=== PATIENT | male | born 1955 | race Caucasian/White ===

== ENCOUNTER → 2018-03-04 06:48 | Outpatient (CLI) | payer MEDICARE, MEDICAID, SELFPAY ==
--- NOTE | 2018-03-04 06:52 | ECHOCS_ITS ---
Reason For Study: CHF Procedure This was a 2D Doppler, Color Flow transthoracic echocardiogram. Exam performed in department. Left Ventricle Normal LV size. The estimated ejection fraction is 35 %. Moderately severe segmental systolic dysfunction (see wall motion). Transmitral diastolic flow velocities suggest mild (stage 1) diastolic dysfunction (reversed pattern). There are regional wall motion abnormalities as specified. Right Ventricle Normal RV size. Normal systolic function. Atria Normal left atrium. Normal right atrium. Mitral Valve Normal mitral valve. Tricuspid Valve Normal tricuspid valve. Mild to moderate (1-2+) tricuspid valve insufficiency. Pulmonary artery systolic pressure is 32 mmHg. Aortic Valve Trisinus/trileaflet aortic valve. Pulmonic Valve The pulmonic valve is not well visualized. Great Vessels Normal aortic root. The pulmonary artery is normal size. Normal inferior vena cava. Pericardium/Pleural No pericardial effusion. Medication Definity0.4ml given slow IV push to enhance endocardial definition. MMode/2D Measurements & Calculations LVIDd: 5.1 cm IVSd: 0.88 cm Ao root diam: 3.2 cm LVIDs: 4.3 cm LVPWd: 0.86 cm LA dimension: 4.7 cm RVDd: 2.6 cm FS: 16.2 % LAV(MOD-bp): 26.8 ml LA A4 area: 13.4 cm2 RA A4 area: 9.1 cm2 LAV(MOD-bp) Indexed: 13.2 ml/m2 LAV(MOD-sp2): 24.4 ml LAV(MOD-sp4): 28.7 ml Doppler Measurements & Calculations MV E max johnny: 59.7 cm/sec Lat Peak E' Johnny: 8.3 cm/sec Med Peak E' Johnny: 6.1 cm/sec MV A max johnny: 88.0 cm/sec E/E' lat: 7.2 E/E' med: 9.8 MV E/A: 0.68 Ao V2 max: 184.5 cm/sec LV V1 max: 79.2 cm/sec PA V2 max: 116.3 cm/sec Ao max P.6 mmHg LV V1 max P.5 mmHg Ao V2 mean: 137.5 cm/sec Ao mean P.4 mmHg Ao V2 VTI: 32.4 cm TR max johnny: 272.5 cm/sec TR max P.8 mmHg Interpretation Summary Normal LV size. The estimated ejection fraction is 35 %. Moderately severe segmental systolic dysfunction (see wall motion). Transmitral diastolic flow velocities suggest mild (stage 1) diastolic dysfunction (reversed pattern). Mild to moderate (1-2+) tricuspid valve insufficiency. Pulmonary artery systolic pressure is 32 mmHg. Contrast injection was performed. Compared to prior study, changes are noted. Ordering Physician: Patricia Cerda Referring Physician: Patricia Cerda Performed By: Katina Rogers RDCS, RVT
--- NOTE | 2018-03-04 12:27 | STRESSREP ---
Stress Test Report Pharmacologic myocardial perfusion stress test. 62-year-old man with a history of coronary artery disease status post previous coronary bypass surgery in 2013. Medications metoprolol lisinopril Zantac aspirin. Stress protocol: Resting EKG demonstrates normal sinus rhythm with a rate of 99 bpm normal intervals are noted. Resting blood pressure is 122/80 mmHg. 0.4 mg of regadenoson was infused per usual protocol followed by rapid intravenous saline flush injection. Continuous EKG monitoring was performed. The patient maintained sinus rhythm throughout the recording. The maximum heart rate attained was 114 bpm which was 71% maximum predicted heart rate the maximum workload attained was 1 metabolic equivalent. At rest there were no ST or T-wave changes noted suggest abnormal flow reserve at peak infusion no ST or T-wave changes were noted suggest abnormal flow reserve. Myocardial perfusion protocol. 10.9 mCi of technetium 99m sestamibi was injected at rest. 0.4 mg of regadenoson was infused per usual protocol. At peak infusion 34.1 mCi of technetium 99m sestamibi was injected stress images were obtained stress and rest images were reconstructed and compared in the short axis vertical long and horizontal long axis. Gated images were also obtained. Perfusion SPECT analysis: Review of the stress images demonstrate a normal cardiac silhouette size. There is a medium-sized defect noted involving the base to mid ventricle. The septum anterior wall and apex appear to be well perfused. There is no improvement from stress to rest to suggest ischemia. The basal to mid inferior wall appears to be infarcted. There is significant GI attenuation artifact though which may be confounding some of the interpretation. Gated SPECT analysis The gated ejection fraction is 24%. Conclusion: Ischemic cardiomyopathy. Pharmacologic myocardial perfusion stress test with evidence of basal to mid inferior infarction. No ischemia noted
--- NOTE | 2018-03-04 12:33 | STRESSREP_ITS ---
Stress Test Report Pharmacologic myocardial perfusion stress test. 62-year-old man with a history of coronary artery disease status post previous coronary bypass surgery in 2013. Medications metoprolol lisinopril Zantac aspirin. Stress protocol: Resting EKG demonstrates normal sinus rhythm with a rate of 99 bpm normal intervals are noted. Resting blood pressure is 122/80 mmHg. 0.4 mg of regadenoson was infused per usual protocol followed by rapid intravenous saline flush injection. Continuous EKG monitoring was performed. The patient maintained sinus rhythm throughout the recording. The maximum heart rate attained was 114 bpm which was 71% maximum predicted heart rate the maximum workload attained was 1 metabolic equivalent. At rest there were no ST or T- wave changes noted suggest abnormal flow reserve at peak infusion no ST or T- wave changes were noted suggest abnormal flow reserve. Myocardial perfusion protocol. 10.9 mCi of technetium 99m sestamibi was injected at rest. 0.4 mg of regadenoson was infused per usual protocol. At peak infusion 34.1 mCi of technetium 99m sestamibi was injected stress images were obtained stress and rest images were reconstructed and compared in the short axis vertical long and horizontal long axis. Gated images were also obtained. Perfusion SPECT analysis: Review of the stress images demonstrate a normal cardiac silhouette size. There is a medium-sized defect noted involving the base to mid ventricle. The septum anterior wall and apex appear to be well perfused. There is no improvement from stress to rest to suggest ischemia. The basal to mid inferior wall appears to be infarcted. There is significant GI attenuation artifact though which may be confounding some of the interpretation. Gated SPECT analysis The gated ejection fraction is 24%. Conclusion: Ischemic cardiomyopathy. Pharmacologic myocardial perfusion stress test with evidence of basal to mid inferior infarction. No ischemia noted
== END ==
PROVIDERS: Family Provider Nurse Practitioner Family; PCP Nurse Practitioner Family; Visit Provider Physician Assistant Medical
DX: I25.5 Ischemic cardiomyopathy (principal); I25.10 Atherosclerotic heart disease of native coronary artery without angina pectoris; R07.9 Chest pain, unspecified; I25.2 Old myocardial infarction
CPT/HCPCS: 78452; 93017; 93306; A9500; Q9957; A4216; C8929; J2785

== ENCOUNTER 2018-04-16 10:18 | Day surgery (SDC) | payer MEDICARE, MEDICAID, SELFPAY ==
[2018-04-09 07:16] LABS: Bacteria 0 SEEN /hpf (None Seen); Mucous, Urine 0 SEEN /hpf (<or=2+); Squamous Epithelial Cells - UA 0 SEEN /hpf (0-5); White Blood Cells 0 SEEN /hpf (0-5)
--- NOTE | 2018-04-09 07:31 | RAD_ITS ---
STUDY: X-RAY CHEST REASON FOR EXAM: Male, 62 years old. Pre-ICD placement examination. TECHNIQUE: PA and lateral views of the chest. COMPARISON: Comparison is made with prior study dated November 13, 2017. FINDINGS: Calcified granuloma in the left lower lobe. Stable mild increased linear markings at the left lung base suggestive of a mild left basilar scarring. There is no demonstrated pleural abnormality. Sternal cerclage wires and vascular clips are present from a prior sternotomy and coronary artery bypass graft procedure (CABG). Normal mediastinum and minna. Normal visualized pulmonary arteries. Normal visualized aortic arch and descending thoracic aorta. Normal visualized thoracic spine. Normal visualized ribs, clavicles, and shoulders. There is no demonstrated abnormality of the visualized soft tissue structures of the upper abdomen. RAD/Chest PA and Lateral IMPRESSION: Stable examination. Mild left basilar scarring. Electronically Signed: Luis Alvarez MD at 15:47 EDT Tel [phone], Service support ,
[2018-04-09 07:52] LABS: Anion Gap 7 (5-15); BUN 25 mg/dL (7-18); BUN/Creat Ratio 16.2 RATIO (10-20); Calcium,Total 9.6 mg/dL (8.5-10.1); Chloride 100 mmol/L (98-107); Creatinine, Serum 1.54 mg/dL (0.70-1.30); EST Glomerular Filtration Rate 49 mL/min (>60); Est Glom Filt Rate - Afr Amer 59 mL/min (>60); Glucose 191 mg/dL (74-106); Potassium 3.9 mmol/L (3.5-5.1); Sodium Level 134 mmol/L (136-145)
[2018-04-09 07:54] LABS: Color, Urine Yellow (Yellow); Glucose, Dipstick 1000 mg/dl (Normal); Ketone-Dipstick Negative (Negative); Leukocyte Esterase-Dipstick Negative /ul (Negative); Nitrite-Dipstick Negative (Negative); Occult Blood-Urine 10 /ul (Negative); Protein-Dipstick 100 mg/dl (Negative); Urine Bilirubin Dipstick Negative (Negative); Urine Clarity Clear (Clear); Urine Urobilinogen Normal (Normal)
[2018-04-09 08:02] LABS: Hematocrit 52.7 % (40-54); Mean Corp Hgb Conc 34.5 g/gl (32-36); Mean Corpuscular Hgb 31.2 pg (27.0-32.0); Mean Corpuscular Volume 90.2 fL (80-94); Mean Platelet Vol. 10.3 fl (6.2-12.0); Platelet Count 230 K/mm3 (150-450); RBC Distribution Width CV 13.4 % (11.6-14.6); RBC Distribution Width SD 43.5 fl (35.1-43.9); Red Blood Count 5.84 M/mm3 (4.6-6.2); White Blood Count 7.2 K/mm3 (4.4-11.0)
[2018-04-09 08:03] LABS: Hyaline Cast 0-5 SEEN /lpf (0-5); Red Blood Cells-Urine 0-5 SEEN /hpf (0-5)
[2018-04-09 08:04] LABS: Hemoglobin 18.2 g/dl (13.0-16.5); Scan Indicated on CBC? Y/N NO
[2018-04-09 08:06] LABS: International Normalized Ratio 0.9; Prothrombin Time (Protime)PT. 12.2 SECONDS (11.7-14.9)
[2018-04-15 10:50] VITALS: BMI 29.9
[2018-04-16] VITALS (14 sets, daily range): BP systolic 99–123; BP diastolic 66–80; PULSE 81–112; RESP 16–18; TEMP 36.6–36.9; O2SAT 93–94
--- NOTE | 2018-04-16 12:37 | PCM.OP.BLANK ---
Operative Report Date of Procedure: 04/16/18 Preoperative diagnosis implantation of primary prevention single chamber ICD for ischemic CM EF 35% despite optimal medical therapy and NYHA Class III symptoms Postoperative diagnosis same as above After informed consent and IV antibiotics the patient was brought to the [facility] catheterization laboratory. The left side of the chest was prepped and draped in the usual sterile manner. The patient was sedated with intermittent boluses of IV Versed fentanyl and propofol as well as subcutaneous 1% lidocaine. An incision was made inferior to the clavicle to accommodate the size of the hardware device. The pocket was created using blunt and Bovie dissection. Hemostasis was obtained. Using the Seldinger technique the axillary vein was cannulated once and a guidewire was advanced under fluoroscopic guidance. Over the guidewire a sheath was advanced. Through this sheath, the electrode was positioned under fluoroscopic guidance into the right ventricle and was actively fixated. Once actively fixated, the lead was tested to check for proper sensing, capture threshold, impedance and to exclude diaphragmatic stimulation. Once the lead was implanted and all electrical parameters were confirmed to be functioning normally with appropriate values, the leads was then sutured to the pectoralis muscle with 2-0 silk on the Silastic collar ?2. The sponge and needle count were correct. Hemostasis was obtained. Antibiotic solution was used to flush the pocket. The new device was brought to the field. The lead was placed in the appropriate position of the header of the device and were secured by the setscrews and confirmed by the tug test. The device and the leads were then placed in the pocket. Pocket was closed with a deep layer of running 2-0 Vicryl, superficial layer of running 4-0 Vicryl and skin with Steri-Strips that were covered with a rolled 4 x 4's and Tegaderm. The patient left the lab with the device programmed to chronic parameters. There were no complications. Lead and device serial and model numbers are available in the chart documents provided by the device company regional sales representative procedure summary.
--- NOTE | 2018-04-16 14:00 | RAD_ITS ---
STUDY: X-RAY CHEST REASON FOR EXAM: Male, 62 years old. ICD placement. TECHNIQUE: Single AP portable view of the chest. COMPARISON: Comparison is made with prior study dated April 09, 2018. FINDINGS: EKG electrodes are seen. Mild increased markings at the left lung base suggestive of linear scarring and/or linear atelectasis. There is no demonstrated pleural abnormality. Sternal cerclage wires are present from a prior sternotomy. A left-sided ICD is seen. Normal mediastinum and minna. Normal visualized pulmonary arteries. Normal visualized aortic arch and descending thoracic aorta. Normal visualized thoracic spine. Normal visualized ribs, clavicles, and shoulders. There is no demonstrated abnormality of the visualized soft tissue structures of the upper abdomen. RAD/Chest 1 View (Portable) IMPRESSION: Status post left-sided ICD placement. The remainder of the examination is unchanged. Electronically Signed: Luis Alvarez MD at 15:55 EDT Tel [phone], Service support ,
[2018-04-16 16:25] LABS: Bedside Glucose 348 mg/dL (70-110)
[2018-04-16] MEDS: Famotidine 20 MG Tablet PO (22:34)
[2018-04-16] MEDS: Metoprolol Tartrate 25 MG Tablet PO (22:35)
[2018-04-16] MEDS: Nortriptyline 25 MG Capsule PO (22:35)
[2018-04-16] MEDS: Zolpidem Tartrate 5 MG Tablet PO (22:38)
[2018-04-16 22:51] LABS: Bedside Glucose 113 mg/dL (70-110)
[2018-04-17 03:00] VITALS: PULSE 80
[2018-04-17 04:30] VITALS: BP 131/87; PULSE 87; RESP 18; TEMP 36.4; O2SAT 95
[2018-04-17 04:40] LABS: Bedside Glucose 172 mg/dL (70-110)
--- NOTE | 2018-04-17 05:00 | RAD_ITS ---
STUDY: X-RAY CHEST REASON FOR EXAM: Male, 62 years old. Pacemaker TECHNIQUE: PA and lateral views of the chest. COMPARISON: 04/16/2018. 04/09/2018. 05/07/2013. FINDINGS: There is no demonstrated pneumothorax. Left subclavian approach pacemaker with lead tip over the right ventricle. The lungs are clear and expanded. There are calcified granuloma left base. Minor scarring in the left base. There is no demonstrated pleural abnormality. Sternal cerclage wires and vascular clips are present from a prior sternotomy and coronary artery bypass graft procedure (CABG). Normal mediastinum and minna. Normal visualized pulmonary arteries. Normal visualized aortic arch and descending thoracic aorta. Normal visualized thoracic spine. Normal visualized ribs, clavicles, and shoulders. There is no demonstrated abnormality of the visualized soft tissue structures of the upper abdomen. RAD/Chest PA and Lateral IMPRESSION: Pacemaker appears in good position. Remote adenomatous exposure and scarring in the left base. There is no demonstrated pneumothorax. Electronically Signed: Ana Correa MD at 7:41 EDT , Service support ,
[2018-04-17 05:38] LABS: Hematocrit 49.9 % (40-54); Hemoglobin 17.4 g/dl (13.0-16.5)
[2018-04-17 05:55] LABS: Anion Gap 8 (5-15); BUN 22 mg/dL (7-18); BUN/Creat Ratio 14.5 RATIO (10-20); Calcium,Total 9.2 mg/dL (8.5-10.1); Chloride 104 mmol/L (98-107); Creatinine, Serum 1.52 mg/dL (0.70-1.30); EST Glomerular Filtration Rate 50 mL/min (>60); Est Glom Filt Rate - Afr Amer 60 mL/min (>60); Estimated Creatinine Clearance 49.38 ml/min; Glucose 163 mg/dL (74-106); Potassium 4.8 mmol/L (3.5-5.1); Sodium Level 139 mmol/L (136-145)
[2018-04-17 06:50] LABS: Bedside Glucose 182 mg/dL (70-110)
[2018-04-17 07:07] VITALS: PULSE 99
[2018-04-17 08:14] VITALS: PULSE 99
[2018-04-17] MEDS: Famotidine 20 MG Tablet PO (08:14)
[2018-04-17] MEDS: Metoprolol Tartrate 25 MG Tablet PO (08:14)
[2018-04-17] MEDS: Aspirin E.C. 81 MG Tablet PO (08:14)
[2018-04-17] MEDS: Clopidogrel Bisulfate 75 MG Tablet PO (08:14)
[2018-04-17] MEDS: Lisinopril 2.5 MG Tablet PO (08:14)
[2018-04-17 10:30] VITALS: BP 114/55; PULSE 95; RESP 16; TEMP 36.9; O2SAT 93
[2018-04-17 11:15] VITALS: PULSE 90
[2018-04-17 12:06] LABS: Bedside Glucose 225 mg/dL (70-110)
--- NOTE | 2018-04-17 14:27 | PCM.PN.CARD ---
Subjectve: The patient is now status post ICD placement. He appears to be without acute procedure related concern or complaint. Objective: Vital Signs Temp Pulse Resp BP Pulse Ox 98.4 F 90 16 114/55 L 93 04/17/18 10:30 04/17/18 11:15 04/17/18 10:30 04/17/18 10:30 04/17/18 10:30 Oxygen Delivery Method Room Air Weight: 197 lb Body Mass Index (BMI) 29.9 Intake and Output for Last 24 Hours 04/15/18 04/16/18 04/17/18 23:59 23:59 23:59 Intake Total 1200 / 1200 Output Total 1175 / 1175 Balance General: Awake, Alert, Oriented x 3, Cooperative, No Acute Distress Neck: No JVD Chest Wall: Left Pectoral Incision - Surgical dressing: Clean and dry Cardiovascular: Regular Rhythm, Normal S1, Normal S2 Abdomen: Bowel Sounds Present, Soft, Non Tender Extremities: No edema 04/17/18 05:20: Hgb 17.4 H, Hct 49.9 04/17/18 05:20: Sodium 139, Potassium 4.8, Chloride 104, Carbon Dioxide 27.0, Anion Gap 8, BUN 22 H, Creatinine 1.52 H, Est GFR (MDRD) Af Amer 60, Est GFR (MDRD) Non-Af 50 L, BUN/Creatinine Ratio 14.5, Glucose 163 H, Calcium 9.2 Rhythm: Sinus rhythm CXR: Preliminary evaluation: No acute cardiopulmonary disease process appreciated: please see official report Medical Necessity - Tobacco Use Smoking Status: Former smoker Assessment/Plan 1. CAD status post CABG with ischemic mediated cardiomyopathy with diminished LV systolic function At the present time patient appears to be without acute complaint. He is now status post ICD placement. There is been no obvious post procedure related concern or complication. The patient will need continued medical management and outpatient follow-up. 25. CHF: Chronic systolic The patient has undergone previous noninvasive and invasive evaluation in the past. He will continue medical management and follow-up. 3. Hyperlipidemia The patient will continue lipid-lowering therapy and appropriate. 4. Hypertension The patient will continue medical management and adjustment as deemed appropriate. Overall, the patient will be released home for continued outpatient cardiovascular follow-up. This note was generated with [employer] software. It may contain incorrect words, spelling, and punctuation that were not noted in checking the note before signing.
== END 2018-04-17 15:15 | disposition home or self-care (01) ==
LOC: CLSP 10:18 → PCU 13:07
PROVIDERS: Physician Assistant Medical; Family Provider Nurse Practitioner Family; PCP Nurse Practitioner Family; Visit Provider Internal Medicine Cardiovascular Disease
DX: I25.5 Ischemic cardiomyopathy (principal); Z45.02 Encounter for adjustment and management of automatic implantable cardiac defibrillator; Z00.6 Encounter for examination for normal comparison and control in clinical research program; I11.0 Hypertensive heart disease with heart failure; I50.22 Chronic systolic (congestive) heart failure; I25.810 Atherosclerosis of coronary artery bypass graft(s) without angina pectoris; E11.9 Type 2 diabetes mellitus without complications; E78.5 Hyperlipidemia, unspecified; Z79.02 Long term (current) use of antithrombotics/antiplatelets; Z79.82 Long term (current) use of aspirin; Z79.4 Long term (current) use of insulin; Z79.899 Other long term (current) drug therapy; I25.2 Old myocardial infarction; Z86.73 Personal history of transient ischemic attack (TIA), and cerebral infarction without residual deficits; Z87.891 Personal history of nicotine dependence; Z95.1 Presence of aortocoronary bypass graft
CPT/HCPCS: 33249; 36415; 71045; 71046; 80048; 81001; 82962; 85014; 85018; 85027; 85610; 93641; 99152; 99153; J7040; J7050; C1894

== ENCOUNTER 2018-09-09 10:31 | Emergency (ER) | payer MEDICARE, MEDICAID, SELFPAY ==
[2018-09-09 10:32] VITALS: BP 131/83; PULSE 99; RESP 18; TEMP 36.6; O2SAT 96; BMI 29.7
[2018-09-09 10:55] VITALS: BP 146/101; PULSE 94; RESP 16; O2SAT 97
--- NOTE | 2018-09-09 11:09 | ED.VISSUMM ---
- ER Visit Summary Date of Service: 09/09/18 Chief Complaint: [] Stabbing pain right great toe region of foot History of Present Illness: The patient is a 63 M [] reports he has chronic numbness in his right foot for years related to diabetes and prior CABG vein harvesting procedures. He has no history of vascular insufficiency to his lower extremities. Indicates for the last 24 hours or so he has had intermittent sharp stabbing pain to the webspace great toe second toe right. There is been no trauma no fever no swelling no bruising, he has had this before but it has not been as frequent. He has no symptoms the left foot, he has history of cardiovasular disease CABG defibrillator is on Plavix all of his medical problems have been stable. At this time he is resting in the bed he has no complaints he is not having pain, he points to the webspace right great toe as the area of pain when it occurs Physical Examination: [] He is resting comforting the bed he is in no distress his vital signs are normal head neck chest unremarkable the abdomen soft nontender he is moving all 4 extremities the right foot left foot, there both have good cap refill to all toes, dorsalis pedis pulses are diminished bilaterally, I did place the pulse ox probe on his toes right and the pulse ox probe read a normal wave pattern with a pulse ox of 98% showing good flow to the tip of the toe, the skin of the foot and the toe are unremarkable there is no signs of infection bruising trauma or necrosis no signs of vascular insufficiency the left foot has a very similar exam neurologically is awake alert moving all 4 Test Results: [] Emergency Department Course and Treatment: [] There are paroxysms of sharp stabbing pain he is not having the pain now I recommended we could do an x-ray he declined that, given that he is asymptomatic he will be started on [place] No. 4 tablets to use as needed I have also recommended he see podiatry for further management as an outpatient and he agrees with that plan, he is concerned that his diabetic neuropathy is getting worse and have explained that is certainly a possibility there is other things on the differential he needs to follow-up and he will do so Treatment Plan: [] Disposition: [] Home stable Impression: [] Remittent sharp stabbing pain right foot history of diabetes diabetic neuropathy CABG defibrillator This note was generated with Dragon dictation software. It may contain incorrect words, spelling, and punctuation that were not noted in review of the chart prior to signing ED Disposition - Plan for ED Patient: Chief Complaint: Lower Extremity Injury Referrals: [place], VICTOR MANUEL-C [Primary Care Provider] -
--- NOTE | 2018-09-09 11:13 | ED.DEP ---
ED Disposition - Plan for ED Patient: Chief Complaint: Lower Extremity Injury Instructions: Treating Peripheral Neuropathy Prescriptions: Hydrocodone Bitart/Apap 5-325 [[place] 5MG-325MG] 1 tab PO Q4H PRN PRN 2 Days #4 tab PRN Reason: Pain Referrals: [place] [facility], HR CONSULTANT-C [Primary Care Provider] - Jhonny Jimenez DPM [STAFF PHYSICIAN] -
--- NOTE | 2018-09-09 11:15 | DCINST.ED_ITS ---
ED Disposition - Plan for ED Patient: Chief Complaint: Lower Extremity Injury Instructions: Treating Peripheral Neuropathy Prescriptions: Hydrocodone Bitart/Apap 5-325 [[place] 5MG-325MG] 1 tab PO Q4H PRN PRN 2 Days #4 tab PRN Reason: Pain Referrals: [place], BENZOL STILL OPERATOR-C [Primary Care Provider] - Jhonny Jimenez DPM [STAFF PHYSICIAN] -
[2018-09-09 11:44] VITALS: PULSE 84; RESP 17; O2SAT 96
== END 2018-09-09 11:45 | disposition home or self-care (01) ==
PROVIDERS: Emergency Provider Emergency Medicine; Family Provider Nurse Practitioner Family; PCP Nurse Practitioner Family
DX: M79.671 Pain in right foot (principal); E11.40 Type 2 diabetes mellitus with diabetic neuropathy, unspecified; Z79.02 Long term (current) use of antithrombotics/antiplatelets; Z79.82 Long term (current) use of aspirin; Z79.4 Long term (current) use of insulin; Z79.899 Other long term (current) drug therapy; Z95.1 Presence of aortocoronary bypass graft; Z95.810 Presence of automatic (implantable) cardiac defibrillator
CPT/HCPCS: 99282

== ENCOUNTER 2019-06-04 13:10 | Inpatient (IN) | payer MEDICARE, MEDICAID, SELFPAY ==
[2019-04-16 08:21] VITALS: BMI 29.9
[2019-06-04] VITALS (13 sets, daily range): BP systolic 131–167; BP diastolic 82–98; PULSE 94–110; RESP 16–24; TEMP 36.1–36.6; O2SAT 89–96; BMI 30.2; BMI 29.6
--- NOTE | 2019-06-04 13:24 | EKG12_ITS ---
Test Reason : Blood Pressure : / mmHG Vent. Rate : 103 BPM Atrial Rate : 103 BPM P-R Int : 156 ms QRS Dur : 106 ms QT Int : 380 ms P-R-T Axes : 053 -07 088 degrees QTc Int : 497 ms Sinus tachycardia Cannot rule out Inferior infarct (cited on or before 12-APR-2013) T wave abnormality, consider lateral ischemia Abnormal ECG Confirmed by DELFINO JULIEN, HEIDI ([id number]), video tape editor ANAY TALBOT ([id number]) on 06/08/2019 2:16:25 PM Referred By: FATEMEH Confirmed By:HEIDI SALEH MD
--- NOTE | 2019-06-04 13:25 | RAD_ITS ---
STUDY: X-RAY CHEST REASON FOR EXAM: Male, 63 years old. Increasing shortness of breath. TECHNIQUE: AP and lateral views of the chest. COMPARISON: Comparison is made with prior study dated April 17, 2018. FINDINGS: EKG electrodes are seen. There now is evidence of vascular congestion and CHF. There is no demonstrated pleural abnormality. Sternal cerclage wires and vascular clips are present from a prior sternotomy and coronary artery bypass graft procedure (CABG). Borderline cardiomegaly. A left-sided single chamber pacemaker is seen. Normal mediastinum and minna. Normal visualized pulmonary arteries. Normal visualized aortic arch and descending thoracic aorta. Normal visualized thoracic spine. Normal visualized ribs, clavicles, and shoulders. There is no demonstrated abnormality of the visualized soft tissue structures of the upper abdomen. RAD/Chest PA and Lateral IMPRESSION: Vascular congestion and CHF. Electronically Signed: Luis Alvarez, at 14:26 EDT , Service support ,
[2019-06-04 14:00] LABS: Absolute Lymphocyte Count 1.79 X10^3/ul (0.83-4.51); Absolute Neutrophil Count 7.4 X10^3/uL (2.0-7.7); Basophil# 0.04 X10^3/uL; Basophil% 0.4 % (0-1); Eosinophil# 0.38 X10^3/uL; Eosinophils% 3.6 % (0-5); Hematocrit 46.1 % (40-54); Hemoglobin 15.9 g/dl (13.0-16.5); Lymphocyte # 1.79 X10^3/ul (4.0); Lymphocyte % 16.7 % (19-41); Mean Corp Hgb Conc 34.5 g/gl (32-36); Mean Corpuscular Hgb 30.3 pg (27.0-32.0); Monocyte# 1.06 X10^3/uL; Monocyte% 9.9 % (0-10); Neutrophil % 69.1 % (47-70); Platelet Count 211 K/mm3 (150-450); RBC Distribution Width CV 13.9 % (11.6-14.6); RBC Distribution Width SD 44.6 fl (35.1-43.9); Red Blood Count 5.24 M/mm3 (4.6-6.2); White Blood Count 10.7 K/mm3 (4.4-11.0)
[2019-06-04 14:02] LABS: POSITIVE COUNT NO; POSITIVE DIFFERENTIAL NO; POSITIVE MORPHOLOGY NO
[2019-06-04 14:10] LABS: International Normalized Ratio 0.9; Prothrombin Time (Protime)PT. 12.4 SECONDS (11.7-14.9)
[2019-06-04 14:11] LABS: AST(SGOT) 31 U/L (15-37); Alanine Aminotransfer ALT/SGPT 39 U/L (16-61); Alkaline Phosphatase 96 U/L (45-117); Anion Gap 7 (5-15); BUN 17 mg/dL (7-18); BUN/Creat Ratio 13.1 RATIO (10-20); Calcium,Total 9.4 mg/dL (8.5-10.1); Chloride 103 mmol/L (98-107); EST Glomerular Filtration Rate 59 mL/min (>60); Est Glom Filt Rate - Afr Amer 72 mL/min (>60); Globulin 3.9 g/dL (2.2-4.2); Glucose 280 mg/dL (74-106); Partial Thromboplast Time 26.7 Seconds (24.1-36.2); Potassium 3.9 mmol/L (3.5-5.1); Protein, Total 7.9 g/dL (6.4-8.2); Sodium Level 136 mmol/L (136-145)
[2019-06-04 14:28] LABS: BNP,B-Type NATRIURETIC PEPTIDE 645.9 pg/mL (0-100)
--- NOTE | 2019-06-04 14:46 | ED.VISSUMM ---
- ER Visit Summary Date of Service: 06/04/19 Chief Complaint: Dyspnea History of Present Illness: The patient is a 63 M who presents emergency department with 5 to 6 days of progressive dyspnea dyspnea on exertion and orthopnea. He has a history of congestive heart failure diabetes and hypertension. He states he is not on Lasix and has not been on Lasix for about 5 years. Last echocardiogram was February 2018 which showed an ejection fraction of 35% with segmental systolic dysfunction pulmonary artery pressure 32. Physical Examination: Afebrile noted tachycardia of 101 resting pulse ox of 98% on room air Gen: Well-nourished well-developed Head: Normocephalic atraumatic Eyes: Perrl EOMI ENT: TMs clear no rhinorrhea moist mucous membranes Neck: Supple no lymphadenopathy no JVD nontender CVS: Regular rate tachycardic rhythm no murmurs normal S1-S2 Respiratory: No distress rales bilaterally chest nontender Abdomen: Soft nontender nondistended normal bowel sounds no masses Back: Nontender Extremity: Nontender no edema Skin: Normal color no rash Neuro: alert orientated ?3 CN II-XII intact normal strength sensation reflexes gait cerebellar Psych: Normal affect normal mood Test Results: EKG demonstrated sinus tachycardia at a rate of 103 this was at rest. Chest x-ray shows vascular congestion consistent with CHF. Beta nitrated peptide was elevated at 645 troponin 0 0.027 280. Creatinine normal. No anemia. Emergency Department Course and Treatment: The patient received Lasix 60 mg IV. He was ambulated in the department. Patient became significantly labored breathing and hypoxic at 87% and symptomatic. Patient was placed on supplemental oxygen and her plan is admission. Impression: 1. Congestive heart failure This note was generated with [employer] dictation software. It may contain incorrect words, spelling, and punctuation that were not noted in review of the chart prior to signing ED Disposition - Plan for ED Patient: Referrals: [place] NP-C [Primary Care Provider] -
[2019-06-04] MEDS: Furosemide 100 MG/10 ML Vial 60 MG IV (14:48)
--- NOTE | 2019-06-04 15:46 | PCM.HP.STD ---
<Bert Holt - Last Filed: 06/04/19 15:50> Problem List (1) CHF (congestive heart failure) Status: Acute Qualifiers: Heart failure type: systolic (2) Presence of implantable cardioverter-defibrillator (ICD) Status: Chronic (3) Ischemic cardiomyopathy Status: Chronic (4) Aortocoronary bypass status Status: Chronic Comment: CABG X 4 vessels @ [facility] February 2013; (5) Large B-cell lymphoma Status: Chronic (6) History of TIA (transient ischemic attack) Status: Chronic (7) CAD (coronary artery disease) Status: Chronic (8) Hypertension Status: Chronic (9) Hyperlipidemia Status: Chronic (10) Type 2 diabetes mellitus Status: Chronic History of Present Illness Date of Admission: 06/04/19 Chief Complaint: Shortness of breath The patient is a 63 year old M with past medical history of CAD with prior quadruple bypass in 2012, history of ischemic cardiomyopathy, hx TIA, history of chronic systolic congestive heart failure with an EF of 35%, AICD in place, history of B-cell lymphoma in remission, history of type 2 diabetes, hypertension, hyperlipidemia, who presented to the emergency room with complaints of increasing shortness of breath. This is been progressively worsening over the past 6 days. Patient cannot identify a triggering cause. He said he spontaneously started becoming more more short of breath. He does not take Lasix at home despite his history of ischemic cardiomyopathy and CHF. He has been without Lasix for about 5 years, the last time he required Lasix was after he had his quad bypass. He reports worsening symptoms of orthopnea and paroxysmal nocturnal dyspnea. He wakes up gasping for breath and has to sit up in order to catch his breath. He has no chest pain. He did have some lightheadedness when ambulating around the emergency room today. He was given Lasix in the ER and has already started to have good urinary output. Reports no difficulty emptying his bladder. Minimal LE edema. He is a patient of Dr. 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 No issues at that time. 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 (Chronic) Atherosclerosis of coronary artery bypass graft without angina pectoris (Chronic) Large B-cell lymphoma (Chronic) History of TIA (transient ischemic attack) (Chronic) History of [place] (myocardial infarction) (Chronic) September 2012 Chronic respiratory failure (Chronic) CAD (coronary artery disease) (Chronic) Hypertension (Chronic) Hyperlipidemia (Chronic) Type 2 diabetes mellitus (Chronic) Medical History: Medical History (Last Reviewed 10/01/18 @ 08:50 by Seth Harris MD) CHF (congestive heart failure) (Acute) I50.9 Old myocardial infarction (Chronic) I25.2 Ischemic cardiomyopathy (Chronic) I25.5 Atherosclerosis of coronary artery bypass graft without angina pectoris (Chronic) I25.810 CAD (coronary artery disease) (Chronic) I25.10 Hypertension (Chronic) I10 Hyperlipidemia (Chronic) E78.5 Type 2 diabetes mellitus (Chronic) E11.9 Allergies No Known Allergies Allergy (Verified 06/04/19 13:12) Home Medications: Ambulatory Orders Medication Instructions Recorded Aspirin [Adult Low Dose Aspirin EC] 81 mg PO DAILY 11/28/16 Clopidogrel Bisulfate [Plavix] 75 mg PO DAILY 11/28/16 Insulin Aspart [Novolog Flexpen] 4 - 20 units SQ 4X/DAY 11/28/16 Lisinopril [Zestril] 2.5 mg PO DAILY 11/28/16 Metoprolol Tartrate [Lopressor 25 mg PO BID 11/28/16 (Beta Devin)] Nortriptyline HCl [Pamelor] 25 mg PO QHS 11/28/16 Ranitidine [Zantac] 150 mg PO DAILY 11/28/16 nitroglycerin 0.4 mg sublingual 0.4 mg SUBLINGUAL Q5-15M PRN #25 02/12/18 tablet tab glipizide 10 mg tablet 10 mg PO DAILY 10/01/18 Atorvastatin Calcium 40 mg PO QHS 06/04/19 Insulin Glargine,Hum.rec.anlog 33 unit SQ QHS 06/04/19 [Basaglar Kwikpen U-100] Metformin HCl 1,000 mg PO BID 06/04/19 Naproxen Sodium [Aleve] 220 - 440 mg PO DAILY 06/04/19 Surgical History: Surgical History (Last Reviewed 10/01/18 @ 08:50 by Seth Harris MD) Presence of implantable cardioverter-defibrillator (ICD) (Chronic) Z95.810 Hx of cataract surgery (Resolved) Z98.49 Hx of appendectomy (Resolved) Z90.49 Aortocoronary bypass status (Chronic) Z95.1 CABG X 4 vessels @ [facility] February 2013; Surgical History: coronary bypass surgery, traumatic head laceration requiring multiple sutures Smoking Status: Former smoker Tobacco Use: Non-smoker Alcohol: None Drugs: None - *Family History Maternal Family History: Family History (Last Reviewed 10/01/18 @ 08:50 by Seth Harris MD) Father Myocardial infarction, Onset Age: 56 Diabetes Sudden cardiac Mother Diabetes Brother Diabetes HLD (hyperlipidemia) Sister Breast cancer Uncle Sudden cardiac Myocardial infarction History Items: Diabetes Paternal Family History: Family History (Last Reviewed 10/01/18 @ 08:50 by Seth Harris MD) Father Myocardial infarction, Onset Age: 56 Diabetes Sudden cardiac Mother Diabetes Brother Diabetes HLD (hyperlipidemia) Sister Breast cancer Uncle Sudden cardiac Myocardial infarction History Items: Heart Disease Review of Systems Constitutional: Denies: Chills, Fever, Weight Change HEENT: Denies: Head Aches, Sinus Congestion, Sinus Drainage Cardiovascular: Denies: Chest Pain, Palpitations Respiratory: Reports: Cough, Shortness of Breath, Shortness of breath at rest, Shortness of breath upon exertion. Denies: Hemoptysis, Pleuritic Pain, Sputum production Gastrointestinal: Denies: Abdominal Pain, Nausea, Vomiting Genitourinary: Denies: Dysuria Musculoskeletal: Denies: Joint Pain, Joint Tenderness Skin: Denies: Rash, Wounds Neurological: Denies: Numbness, Tingling, Focal weakness Psychiatric: Denies: Anxiety, Depression, Homicidal Ideations, Suicidal Ideations Hematologic/ Lymphatic: Denies: Easy Bruising, Easy Bleeding VTE Information - Inpt Only VTE Present on Admission: No VTE Mechan Device Prophylaxis: None VTE Pharm Prophylaxis ordered?: Yes - Physical Exam General: Alert, Oriented x3, Cooperative HEENT: Atraumatic, PERRLA, EOMI, Normocephalic Neck: Supple, No JVD, Negative Carotid Bruits Lungs: Normal air movement, No rales Cardiovascular: Regular rate, No murmurs Abdomen: Bowel Sounds Present, Soft, Non Tender Extremities: No edema, Capillary Refill Less than 3 Seconds Skin: No rashes, No breakdown Musculoskeletal: No Tenderness to Palpation of Joints or Extremities Neurological: Cranial nerves II-XII grossly intact Psych/Mental Status: Normal Affect, Appropriate, Alert and oriented to time, place, person, mood and affect Vital Signs Temp Pulse Resp BP Pulse Ox 97.6 F L 102 H 20 H 139/90 H 94 06/04/19 13:10 06/04/19 15:14 06/04/19 15:14 06/04/19 15:14 06/04/19 15:14 Oxygen Flow Rate (L/min) 2 Oxygen Delivery Method Nasal Cannula Weight: 198 lb 6.656 oz Body Mass Index (BMI) 30.2 Laboratory Tests Past 24 Hrs 06/04/19 06/04/19 06/04/19 13:40 13:40 13:40 WBC 10.7 RBC 5.24 Hgb 15.9 Hct 46.1 MCV 88.0 MCH 30.3 MCHC 34.5 RDW 13.9 RDW Differential 44.6 H Plt Count 211 MPV 11.0 Immature Gran % (Auto) 0.300 Neut % (Auto) 69.1 Lymph % (Auto) 16.7 L Yancey % (Auto) 9.9 Eos % (Auto) 3.6 Baso % (Auto) 0.4 Absolute Neuts (auto) 7.4 Absolute Lymphs (auto) 1.79 Total Counted Not Reportable PT 12.4 INR 0.9 APTT 26.7 Sodium 136 Potassium 3.9 Chloride 103 Carbon Dioxide 26.0 Anion Gap 7 BUN 17 Creatinine 1.30 Estim Creat Clear Calc 57.00 Est GFR (MDRD) Af Amer 72 Est GFR (MDRD) Non-Af 59 L BUN/Creatinine Ratio 13.1 Glucose 280 H Calcium 9.4 Total Bilirubin 0.70 AST 31 ALT 39 Alkaline Phosphatase 96 Troponin I 0.027 B-Natriuretic Peptide Total Protein 7.9 Albumin 4.0 Globulin 3.9 Albumin/Globulin Ratio 1.0 06/04/19 13:40 WBC RBC Hgb Hct MCV MCH MCHC RDW RDW Differential Plt Count MPV Immature Gran % (Auto) Neut % (Auto) Lymph % (Auto) Yancey % (Auto) Eos % (Auto) Baso % (Auto) Absolute Neuts (auto) Absolute Lymphs (auto) Total Counted PT INR APTT Sodium Potassium Chloride Carbon Dioxide Anion Gap BUN Creatinine Estim Creat Clear Calc Est GFR (MDRD) Af Amer Est GFR (MDRD) Non-Af BUN/Creatinine Ratio Glucose Calcium Total Bilirubin AST ALT Alkaline Phosphatase Troponin I B-Natriuretic Peptide 645.9 H Total Protein Albumin Globulin Albumin/Globulin Ratio Assessment/Plan All Active Problems (Last Reviewed 10/01/18 @ 08:50 by Seth Harris MD) CHF (congestive heart failure) (Acute) 1. Acute on chronic systolic congestive heart failure, ischemic cardiomyopathy -progressively worsening shortness of breath, PND, orthopnea over the past 5 to 6 days. Given Lasix in the ER with good output already. He does have an elevated beta natruretic peptide as well as a chest x-ray consistent with congestive heart failure. He has minimal lower extremity edema. -We will continue IV Lasix, home dose of metoprolol, and home dose of lisinopril. Renal function appears normal at this time, however he has been referred as an outpatient to nephrology so he may have some underlying CKD. Also add sodium and fluid restriction. -Repeat echocardiogram as his last echo was over one year ago last February-at that time EF 35%, moderately severe segmental systolic dysfunction, stage I diastolic dysfunction, 1-2+ TVI, PASP of 32 mmHg. -EKG SR with nonspecific changes -Trop neg. -Pt of Dr. Harris 2. CAD with CABG x4 - continue peggy, BB, statin, asa, plavix. negative EKG, neg trop, no CP. 3. Dmt2 - hold metformin, continue long acting insulin, glipizide, and SSI 4. ?CKD - nephro follow up as outpatient. Stop Naproxyn. 5. HTN, HLD - as above 6. hx B cell lymphoma - in remission 7. Hx TIA - asa/plavix/statin DVT ppx: lovenox DC planning: lives @ home with girlfriend, doubt homegoing needs. This patient was seen by Bert Holt PA-C under the supervision of Doctor Zac. <Kevin Frank - Last Filed: 06/04/19 17:04> History of Present Illness The patient is a 63 year old M [] Past Medical History Medical History: Medical History (Last Reviewed 10/01/18 @ 08:50 by Seth Harris MD) CHF (congestive heart failure) (Acute) I50.9 Old myocardial infarction (Chronic) I25.2 Ischemic cardiomyopathy (Chronic) I25.5 Atherosclerosis of coronary artery bypass graft without angina pectoris (Chronic) I25.810 CAD (coronary artery disease) (Chronic) I25.10 Hypertension (Chronic) I10 Hyperlipidemia (Chronic) E78.5 Type 2 diabetes mellitus (Chronic) E11.9 Allergies No Known Allergies Allergy (Verified 06/04/19 13:12) Surgical History: Surgical History (Last Updated 06/04/19 @ 16:58 by Kevin Frank MD) Presence of implantable cardioverter-defibrillator (ICD) (Chronic) Z95.810 Aortocoronary bypass status (Chronic) Z95.1 CABG X 4 vessels @ [facility] February 2013; Hx of appendectomy (Inactive) Z90.49 Hx of cataract surgery (Inactive) Z98.49 - *Family History Maternal Family History: Family History (Last Reviewed 10/01/18 @ 08:50 by Seth Harris MD) Father Myocardial infarction, Onset Age: 56 Diabetes Sudden cardiac Mother Diabetes Brother Diabetes HLD (hyperlipidemia) Sister Breast cancer Uncle Sudden cardiac Myocardial infarction Paternal Family History: Family History (Last Reviewed 10/01/18 @ 08:50 by Seth Harris MD) Father Myocardial infarction, Onset Age: 56 Diabetes Sudden cardiac Mother Diabetes Brother Diabetes HLD (hyperlipidemia) Sister Breast cancer Uncle Sudden cardiac Myocardial infarction - Physical Exam Vital Signs Temp Pulse Resp BP Pulse Ox 97.6 F L 97 24 H 139/90 H 93 06/04/19 13:10 06/04/19 15:51 06/04/19 15:51 06/04/19 15:51 06/04/19 15:51 Oxygen Flow Rate (L/min) 2 Oxygen Delivery Method Nasal Cannula Weight: 198 lb 6.656 oz Body Mass Index (BMI) 30.2 Intake and Output for Last 24 Hours 06/02/19 06/03/19 06/04/19 23:59 23:59 23:59 Output Total 700 / 700 Balance -700 / -700 Laboratory Tests Past 24 Hrs 07/12/19 07/12/19 07/12/19 13:40 13:40 13:40 WBC 10.7 RBC 5.24 Hgb 15.9 Hct 46.1 MCV 88.0 MCH 30.3 MCHC 34.5 RDW 13.9 RDW Differential 44.6 H Plt Count 211 MPV 11.0 Immature Gran % (Auto) 0.300 Neut % (Auto) 69.1 Lymph % (Auto) 16.7 L Yancey % (Auto) 9.9 Eos % (Auto) 3.6 Baso % (Auto) 0.4 Absolute Neuts (auto) 7.4 Absolute Lymphs (auto) 1.79 Total Counted Not Reportable PT 12.4 INR 0.9 APTT 26.7 Sodium 136 Potassium 3.9 Chloride 103 Carbon Dioxide 26.0 Anion Gap 7 BUN 17 Creatinine 1.30 Estim Creat Clear Calc 57.00 Est GFR (MDRD) Af Amer 72 Est GFR (MDRD) Non-Af 59 L BUN/Creatinine Ratio 13.1 Glucose 280 H Calcium 9.4 Total Bilirubin 0.70 AST 31 ALT 39 Alkaline Phosphatase 96 Troponin I 0.027 B-Natriuretic Peptide Total Protein 7.9 Albumin 4.0 Globulin 3.9 Albumin/Globulin Ratio 1.0 06/04/19 13:40 WBC RBC Hgb Hct MCV MCH MCHC RDW RDW Differential Plt Count MPV Immature Gran % (Auto) Neut % (Auto) Lymph % (Auto) Yancey % (Auto) Eos % (Auto) Baso % (Auto) Absolute Neuts (auto) Absolute Lymphs (auto) Total Counted PT INR APTT Sodium Potassium Chloride Carbon Dioxide Anion Gap BUN Creatinine Estim Creat Clear Calc Est GFR (MDRD) Af Amer Est GFR (MDRD) Non-Af BUN/Creatinine Ratio Glucose Calcium Total Bilirubin AST ALT Alkaline Phosphatase Troponin I B-Natriuretic Peptide 645.9 H Total Protein Albumin Globulin Albumin/Globulin Ratio Assessment/Plan Hospitalist note: I am seeing this patient in conjunction with Bert Holt. I independently seen and examined the patient. History and physical, laboratory data and imaging studies reviewed and I concur with the above admission treatment plan. Patient presented to the emergency room because of progressively worsening shortness of breath over the last 6 days, initially was with minimal exertion, progressed to become even at rest, aggravated by even walking for a few steps, minimally relieved with rest, associated with mild cough as well as orthopnea. Patient denies chest pain, palpitation, dizziness or lightheadedness. In the emergency department, he was slightly tachycardic, blood pressure was maintained, pulse ox was 95% on 2 L. Routine blood work was unremarkable. EKG revealed sinus tachycardia, no ischemic changes. Troponin was negative. BNP was elevated at 645. LFT was unremarkable. Chest x-ray revealed mild cardiomegaly, ICD in place, bilateral pulmonary vascular congestion on both lungs consistent with acute CHF. He is being admitted for acute on chronic systolic CHF. - Physical Exam General: Alert, Oriented x3, Cooperative, No apparent distress. HEENT: Atraumatic, PERRLA, EOMI. Neck: Supple, No JVD, Negative Carotid Bruits, Trachea Midline, Thyroid Normal. Lungs: Decreased breath sounds bilaterally, more at the bases, bilateral basilar crackles, minimally short of breath, no wheezing or rhonchi. Cardiovascular: Regular rate, Regular Rhythm, Normal S1, Normal S2, PMI Normal, tachycardia,. Abdomen: Bowel Sounds Present, Soft, Non Tender, Non-Distended, No Hepato-splenomegaly. Extremities: No clubbing, No cyanosis, No edema Skin: No rashes, No breakdown Neurological: Cranial nerves are intact, neuro grossly intact Assessment and plan: #1 acute on chronic systolic CHF: With past history of ischemic cardia myopathy. He had 2D echocardiogram on February, that showed ejection fraction of 35%. Chest x-ray reviewed, consistent with CHF. BNP is elevated. EKG without acute ischemic changes. Troponin is negative. Plan: Admit to PCU, cardiac monitoring, start IV Lasix, 2D echocardiogram, input output chart, repeat BMP tomorrow morning, continue metoprolol and lisinopril. #2 other chronic medical problems: Stable, continue current medication as above. This note was generated with [employer] dictation software. It may contain incorrect words, spelling, and punctuation that were not noted in checking the note before signing. Code Visit Inpatient E&M: 00533 Init Hosp L3
--- NOTE | 2019-06-04 16:57 | ECHOCS_ITS ---
Reason For Study: CHF Procedure This was a 2D Doppler, Color Flow transthoracic echocardiogram. The study was technically difficult. Contrast injection was performed. Exam performed portable in patient room. Left Ventricle Normal LV size. The estimated ejection fraction is 15 %. Severe segmental systolic dysfunction (see wall motion). Stage 2 diastolic dysfunction. Mid-Anterior : Normal. Anterio-Basal: Normal. Lateral- Basal: Normal. Posterior-Basal: Normal. Infero-Basal: Hypokinetic. Basal inferoseptal: Akinetic. Basal anteroseptal: Hypokinetic. Mid-Lateral : Normal. Mid-Posterior: Normal. Mid-Inferior: Akinetic. Mid-inferoseptal : Akinetic. [place] : Akinetic. Right Ventricle Normal RV size. ICD or pacer leads identified within the right ventricle. Normal systolic function. Atria Normal left atrium. Normal right atrium. Mitral Valve There is mild to moderate mitral annular calcification. Mild-Moderate (1-2+) eccentric mitral valve insufficiency. Tricuspid Valve Normal tricuspid valve. Moderate (2+) tricuspid valve insufficiency. Pulmonary artery systolic pressure is 52 mmHg. Moderate pulmonary hypertension. Aortic Valve Trisinus/trileaflet aortic valve. Mild focal aortic valve calcification. Trivial aortic valve insufficiency. Pulmonic Valve Normal pulmonic valve. Mild (1+) pulmonic valve insufficiency. Great Vessels Normal aortic root. The pulmonary artery is normal size. Normal inferior vena cava. Pericardium/Pleural No pericardial effusion. Medication Diluted definity 3ml given slow IV push to enhance endocardial definition. MMode/2D Measurements & Calculations LVIDd: 5.6 cm IVSd: 0.92 cm Ao root diam: 3.2 cm LVIDs: 5.0 cm LVPWd: 0.92 cm RVDd: 3.4 cm FS: 10.7 % LAV(MOD-bp): 58.8 ml LA A4 area: 18.6 cm2 LA dimension(2D): 4.7 cm LAV(MOD-bp) Indexed: 28.9 ml/m2 LAV(MOD-sp2): 58.9 ml LAV(MOD-sp4): 50.0 ml RA A4 area: 10.2 cm2 Doppler Measurements & Calculations MV E max johnny: 105.7 cm/sec Lat Peak E' Johnny: 5.8 cm/sec Med Peak E' Johnny: 3.9 cm/sec MV A max johnny: 58.5 cm/sec E/E' lat: 18.2 E/E' med: 26.8 MV E/A: 1.8 Ao V2 max: 166.5 cm/sec LV V1 max: 78.9 cm/sec PA V2 max: 67.3 cm/sec Ao max P.1 mmHg LV V1 max P.5 mmHg Ao V2 mean: 117.9 cm/sec Ao mean P.1 mmHg Ao V2 VTI: 31.1 cm TR max johnny: 344.6 cm/sec TR max P.5 mmHg Interpretation Summary Normal LV size. The estimated ejection fraction is 15 %. Severe segmental systolic dysfunction (see wall motion). Stage 2 diastolic dysfunction. Moderate (2+) tricuspid valve insufficiency. Moderate pulmonary hypertension. Compared to previous study, the left ventricular systolic function has worsened.. Ordering Physician: Bert Holt Referring Physician: [place] Performed By: Katina Rogers RDCS, RVT
[2019-06-04 17:45] LABS: Bedside Glucose 195 mg/dL (70-110)
[2019-06-04 18:49] LABS: Thyroid Stim Hormone (TSH) 2.14 uIU/mL (0.358-3.74)
[2019-06-04] MEDS: Nortriptyline 25 MG Capsule PO (21:56)
[2019-06-04] MEDS: Metoprolol Tartrate 25 MG Tablet PO (21:56)
[2019-06-04] MEDS: Atorvastatin Calcium 40 MG Tablet PO (21:56)
[2019-06-04] MEDS: Insulin Lispro 100 UNIT/ML INSULN.PEN SC (22:03)
[2019-06-04] MEDS: MELATONIN 3 MG TABLET PO (23:23)
[2019-06-05] VITALS (13 sets, daily range): BP systolic 127–139; BP diastolic 83–90; PULSE 83–93; RESP 14–16; TEMP 36.3–36.8; O2SAT 92–97
[2019-06-05 00:30] LABS: Bedside Glucose 300 mg/dL (70-110)
[2019-06-05] MEDS: Insulin Lispro 100 UNIT/ML INSULN.PEN SC ×2 (06:35→11:14)
[2019-06-05] MEDS: glipiZIDE 10 MG Tablet PO (06:37)
[2019-06-05 06:46] LABS: Bedside Glucose 212 mg/dL (70-110)
[2019-06-05 07:09] LABS: Anion Gap 7 (5-15); BUN 23 mg/dL (7-18); BUN/Creat Ratio 18.4 RATIO (10-20); Calcium,Total 9.3 mg/dL (8.5-10.1); Chloride 103 mmol/L (98-107); Creatinine, Serum 1.25 mg/dL (0.70-1.30); EST Glomerular Filtration Rate 62 mL/min (>60); Est Glom Filt Rate - Afr Amer 75 mL/min (>60); Estimated Creatinine Clearance 59.28 ml/min; Glucose 225 mg/dL (74-106); Potassium 3.9 mmol/L (3.5-5.1); Sodium Level 139 mmol/L (136-145)
[2019-06-05] MEDS: Aspirin E.C. 81 MG Tablet PO (07:35)
[2019-06-05] MEDS: Furosemide 40 MG/4 ML Vial IV (09:20)
[2019-06-05] MEDS: Enoxaparin 40 MG/0.4 ML Syringe SC (09:21)
[2019-06-05] MEDS: Metoprolol Tartrate 25 MG Tablet PO (09:21)
[2019-06-05] MEDS: Famotidine 20 MG Tablet PO (09:22)
[2019-06-05] MEDS: Clopidogrel Bisulfate 75 MG Tablet PO (09:22)
[2019-06-05] MEDS: Lisinopril 2.5 MG Tablet PO (09:22)
[2019-06-05 11:21] LABS: Bedside Glucose 289 mg/dL (70-110)
--- NOTE | 2019-06-05 12:27 | DCINST_ITS ---
You will use the following diet at home:: Cardiac - 2500 mg sodium daily Your food should be the consistency of: Regular Your liquids should be the consistency of: Regular/Thin Discharge Activity: Return to Normal Activity Allergies/Adverse Reactions: Allergies No Known Allergies Allergy (Verified 06/04/19 13:12) Medications to take at Discharge Aspirin [Adult Low Dose Aspirin EC] 81 mg PO DAILY 11/28/16 Clopidogrel Bisulfate [Plavix] 75 mg PO DAILY 11/28/16 Insulin Aspart [Novolog Flexpen] 4 - 20 units SQ 4X/DAY 11/28/16 Lisinopril [Zestril] 2.5 mg PO DAILY 11/28/16 Metoprolol Tartrate [Lopressor (beta raymundo)] 25 mg PO BID 11/28/16 Nortriptyline HCl [Pamelor] 25 mg PO QHS 11/28/16 Ranitidine [Zantac] 150 mg PO DAILY 11/28/16 nitroglycerin 0.4 mg sublingual tablet 0.4 mg SUBLINGUAL Q5-15M PRN #25 tab 02/12/18 glipizide 10 mg tablet 10 mg PO DAILY 10/01/18 Atorvastatin Calcium 40 mg PO QHS 06/04/19 Insulin Glargine,Hum.rec.anlog [Basaglar Kwikpen U-100] 33 unit SQ QHS 06/04/19 Metformin HCl 1,000 mg PO BID 06/04/19 Furosemide [Lasix] 40 mg PO DAILY #30 tab 06/05/19 The following prescriptions were given: Furosemide [Lasix] 40 mg PO DAILY #30 tab Transmission Status: Pending to [id number] Primary Care Physician: [place], SENIOR MOBILE DEVELOPER-C [Primary Care Provider] - Please follow up with your Primary Care Physician in: 1-2 weeks Test Results: Test results from this visit will be discussed in further detail at your follow- up appointment, if applicable. Please Follow Up With: Seth Harris MD When: as directed
--- NOTE | 2019-06-05 12:28 | DS.PCM_ITS ---
<Bert Holt - Last Filed: 06/05/19 12:28> Discharge Date and Diagnosis Date of Admission: 06/04/19 Date of Discharge: 06/05/19 - Primary Discharge Diagnosis Acute systolic CHF exacerbation Ischemic cardiomyopathy, AICD in place CAD with history of CABG x4 History of TIA History of B-cell lymphoma in remission Hypertension hyperlipidemia Type 2 diabetes - Secondary Discharge Diagnosis Chronic Problems (Last Reviewed 10/01/18 @ 08:50 by Seth Harris MD) Presence of implantable cardioverter-defibrillator (ICD) (Chronic) Old myocardial infarction (Chronic) Congestive heart disease (Chronic) Ischemic cardiomyopathy (Chronic) Aortocoronary bypass status (Chronic) CABG X 4 vessels @ [facility] February 2013; Other long-term (current) drug therapy (Chronic) Atherosclerosis of coronary artery bypass graft without angina pectoris (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 Echo report pending Operations: None Procedures: 2-D Echocardiogram Summary of Care Provided: Hospital course: The patient is a 63 year old M with past medical history as above notably for history of systolic CHF with a prior EF of 35% per echo last February. He has not been on Lasix for about 5 years however has been well controlled without it. He presented to the emergency room with increased shortness of breath, orthopnea, PND, and dyspnea on exertion. He appeared to be in acute CHF exacerbation with chest x-ray consistent with CHF. He was given IV Lasix in the emergency room and began diuresing well. He was admitted to the PCU and placed on telemetry overnight, started on IV Lasix, his beta-raymundo and MANUELA inhibitor were continued. He continued to diurese well overnight with no difficulty emptying his bladder. He did not require oxygen and was ambulatory in the room without significant shortness of breath. Patient was agreeable to transition to p.o. Lasix and discharged home. We placed him on 40 mg Lasix daily, he will continue his other prior medications. He will need follow-up BMP as an outpatient to assess his renal function and potassium. He will follow-up with his PCP in 1 to 2 weeks, he should also follow-up with cardiology as directed. At this time the repeat echo report is pending. This patient was seen by Bert Holt PA-C under the supervision of Doctor Suhas. [] - Physical Exam General: Alert, Oriented x3, Cooperative HEENT: Atraumatic, PERRLA, EOMI, Normocephalic Neck: Supple, No JVD, Negative Carotid Bruits Lungs: Normal air movement, No rales Cardiovascular: Regular rate, No murmurs Abdomen: Bowel Sounds Present, Soft, Non Tender Extremities: No edema, Capillary Refill Less than 3 Seconds Skin: No rashes, No breakdown Musculoskeletal: No Tenderness to Palpation of Joints or Extremities Neurological: Cranial nerves II-XII grossly intact Psych/Mental Status: Normal Affect, Appropriate, Alert and oriented to time, place, person, mood and affect Vital Signs Temp Pulse Resp BP Pulse Ox 97.5 F L 86 16 132/86 H 93 06/05/19 09:40 06/05/19 11:13 06/05/19 09:40 06/05/19 09:40 06/05/19 10:25 Oxygen Flow Rate (L/min) 2 Oxygen Delivery Method Room Air Weight: 189 lb 9.561 oz Body Mass Index (BMI) 29.6 Orthostatic Vital Signs Start: 06/05/19 03:43 Freq: q24h Status: Active Protocol: Activity Type Activity Date Activity User E-Sign Co-Sign Detail Recorded Client Recorded Date Recorded By Document 06/05/19 03:43 [id number] 06/05/19 03:46 [email or web address] 06/05/19 03:43 Orthostatic Vitals Standing -Blood Pressure (90/60-120/80) 137/86 H -Extremity Use Left Arm -Pulse Rate (60-100) 90 Sitting -Blood Pressure (90/60-120/80) 129/83 H -Extremity Use Left Arm -Pulse Rate (60-100) 90 Lying -Blood Pressure (90/60-120/80) 139/90 H -Extremity Use Left Arm -Pulse Rate (60-100) 89 Intake and Output for Last 24 Hours 06/03/19 06/04/19 06/05/19 23:59 23:59 23:59 Intake Total 240 / 300 360 / 360 Output Total 700 / 700 Balance -460 / -400 360 / 360 Laboratory Tests Past 24 Hrs 06/04/19 06/04/19 06/04/19 13:40 13:40 13:40 WBC 10.7 RBC 5.24 Hgb 15.9 Hct 46.1 MCV 88.0 MCH 30.3 MCHC 34.5 RDW 13.9 RDW Differential 44.6 H Plt Count 211 MPV 11.0 Immature Gran % (Auto) 0.300 Neut % (Auto) 69.1 Lymph % (Auto) 16.7 L [place] % (Auto) 9.9 Eos % (Auto) 3.6 Baso % (Auto) 0.4 Absolute Neuts (auto) 7.4 Absolute Lymphs (auto) 1.79 Total Counted Not Reportable PT 12.4 INR 0.9 APTT 26.7 Sodium 136 Potassium 3.9 Chloride 103 Carbon Dioxide 26.0 Anion Gap 7 BUN 17 Creatinine 1.30 Estim Creat Clear Calc 57.00 Est GFR (MDRD) Af Amer 72 Est GFR (MDRD) Non-Af 59 L BUN/Creatinine Ratio 13.1 Glucose 280 H Calcium 9.4 Magnesium Total Bilirubin 0.70 AST 31 ALT 39 Alkaline Phosphatase 96 Troponin I 0.027 B-Natriuretic Peptide Total Protein 7.9 Albumin 4.0 Globulin 3.9 Albumin/Globulin Ratio 1.0 TSH 06/04/19 06/04/19 06/05/19 13:40 13:40 06:40 WBC RBC Hgb Hct MCV MCH MCHC RDW RDW Differential Plt Count MPV Immature Gran % (Auto) Neut % (Auto) Lymph % (Auto) [place] % (Auto) Eos % (Auto) Baso % (Auto) Absolute Neuts (auto) Absolute Lymphs (auto) Total Counted PT INR APTT Sodium 139 Potassium 3.9 Chloride 103 Carbon Dioxide 29.0 Anion Gap 7 BUN 23 H Creatinine 1.25 Estim Creat Clear Calc 59.28 Est GFR (MDRD) Af Amer 75 Est GFR (MDRD) Non-Af 62 BUN/Creatinine Ratio 18.4 Glucose 225 H Calcium 9.3 Magnesium 2.0 Total Bilirubin AST ALT Alkaline Phosphatase Troponin I B-Natriuretic Peptide 645.9 H Total Protein Albumin Globulin Albumin/Globulin Ratio TSH 2.14 POC Glucose 06/05/19 06/05/19 06/04/19 11:12 06:32 21:44 POC Glucose 289 H 212 H 300 H 06/04/19 17:39 POC Glucose 195 H Discharge Diet: Low fat/ Low Cholesterol, - - 2500 mg sodium daily Discharge Activity: Return to Normal Activity Home Medications: Medications to take at Discharge Aspirin [Adult Low Dose Aspirin EC] 81 mg PO DAILY 11/28/16 Clopidogrel Bisulfate [Plavix] 75 mg PO DAILY 11/28/16 Insulin Aspart [Novolog Flexpen] 4 - 20 units SQ 4X/DAY 11/28/16 Lisinopril [Zestril] 2.5 mg PO DAILY 11/28/16 Metoprolol Tartrate [Lopressor (beta raymundo)] 25 mg PO BID 11/28/16 Nortriptyline HCl [Pamelor] 25 mg PO QHS 11/28/16 Ranitidine [Zantac] 150 mg PO DAILY 11/28/16 nitroglycerin 0.4 mg sublingual tablet 0.4 mg SUBLINGUAL Q5-15M PRN #25 tab 02/12/18 glipizide 10 mg tablet 10 mg PO DAILY 10/01/18 Atorvastatin Calcium 40 mg PO QHS 06/04/19 Insulin Glargine,Hum.rec.anlog [Basaglar Kwikpen U-100] 33 unit SQ QHS 06/04/19 Metformin HCl 1,000 mg PO BID 06/04/19 Furosemide [Lasix] 40 mg PO DAILY #30 tab 06/05/19 Following Prescrptions Were Given to Patient: Furosemide [Lasix] 40 mg PO DAILY #30 tab Transmission Status: Received by [id number] Primary Care Physician: [place] NP-C [Primary Care Provider] - Please follow up with your Primary Care Physician in: 1-2 weeks Please Follow Up With: Seth Harris MD When: as directed Disposition: Home Minutes spent on discharge:: 35 Patient Condition:: Stable Medical Necessity - Tobacco Use Smoking Status: Former smoker Tobacco Use: Cigars, Pipe Meaningful Use Info Meaningful Use Diagnoses (Choose all that apply): CHF - CHF MANUELA/ARB ordered at discharge?: Yes Documented LVEF (%): 35 <Azael Dai - Last Filed: 06/05/19 14:26> Discharge Date and Diagnosis - Secondary Discharge Diagnosis Chronic Problems (Last Reviewed 10/01/18 @ 08:50 by Seth Harris MD) Presence of implantable cardioverter-defibrillator (ICD) (Chronic) Old myocardial infarction (Chronic) Congestive heart disease (Chronic) Ischemic cardiomyopathy (Chronic) Aortocoronary bypass status (Chronic) CABG X 4 vessels @ [facility] February 2013; 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 Chest x-ray consistent showed a CHF with was some small effusions. Patient was started on IV Lasix. Patient did very well and went to been on room air even with ambulation the next day. Patient did have an echocardiogram performed given his history of cardiomyopathy. Previously his ejection fraction has been 35%. Patient will be discharged with oral Lasix started to weigh himself daily and to monitor his intake and output. Otherwise patient is doing well can be discharged home in stable condition. [] - Physical Exam General: Alert, Cooperative, - - up in chair on room air HEENT: Atraumatic, Normocephalic Neck: No Nodes, Thyroid Normal Size and Texture Lungs: Clear to auscultation, Normal air movement, No rales Cardiovascular: Regular rate, No murmurs Abdomen: Bowel Sounds Present, Soft, Non Tender, Non-Distended Psych/Mental Status: Normal Affect, Appropriate Vital Signs Temp Pulse Resp BP Pulse Ox 36.4 C L 85 16 132/86 H 93 06/05/19 09:40 06/05/19 13:49 06/05/19 13:49 06/05/19 09:40 06/05/19 13:49 Oxygen Flow Rate (L/min) 2 Oxygen Delivery Method Room Air Weight: 86 kg Body Mass Index (BMI) 29.6 Orthostatic Vital Signs Start: 06/05/19 03:43 Freq: q24h Status: Active Protocol: Activity Type Activity Date Activity User E-Sign Co-Sign Detail Recorded Client Recorded Date Recorded By Document 06/05/19 03:43 [email or web address] [id number] 06/05/19 03:46 [email or web address] 06/05/19 03:43 Orthostatic Vitals Standing -Blood Pressure (90/60-120/80) 137/86 H -Extremity Use Left Arm -Pulse Rate (60-100) 90 Sitting -Blood Pressure (90/60-120/80) 129/83 H -Extremity Use Left Arm -Pulse Rate (60-100) 90 Lying -Blood Pressure (90/60-120/80) 139/90 H -Extremity Use Left Arm -Pulse Rate (60-100) 89 Intake and Output for Last 24 Hours 06/03/19 06/04/19 06/05/19 23:59 23:59 23:59 Intake Total 240 / 300 360 / 360 Output Total 700 / 700 Balance -460 / -400 360 / 360 Laboratory Tests Past 24 Hrs 06/04/19 06/04/19 06/05/19 13:40 13:40 06:40 Sodium 139 Potassium 3.9 Chloride 103 Carbon Dioxide 29.0 Anion Gap 7 BUN 23 H Creatinine 1.25 Estim Creat Clear Calc 59.28 Est GFR (MDRD) Af Amer 75 Est GFR (MDRD) Non-Af 62 BUN/Creatinine Ratio 18.4 Glucose 225 H Calcium 9.3 Magnesium 2.0 B-Natriuretic Peptide 645.9 H TSH 2.14 POC Glucose 06/05/19 06/05/19 06/04/19 11:12 06:32 21:44 POC Glucose 289 H 212 H 300 H 06/04/19 17:39 POC Glucose 195 H Discharge Diet: Low fat/ Low Cholesterol, - Discharge Activity: Return to Normal Activity Disposition: Home Minutes spent on discharge:: 352 Patient Condition:: Stable Medical Necessity - Tobacco Use Smoking Status: Former smoker Tobacco Use: Cigars, Pipe Meaningful Use Info Meaningful Use Diagnoses (Choose all that apply): CHF - CHF MANUELA/ARB ordered at discharge?: Yes Documented LVEF (%): 35 Code Visit Inpatient E&M: 34692 Disch Hosp
--- NOTE | 2019-06-07 14:18 | CASEMGMT ---
[facility] DC PHONE CALL DC DATE: 06/05/19 DC Disposition: Home Diagnosis on Discharge: CHF exacerbation LACE/STRATA: 07/27 Intro role of CM to patient via phone. Pt states he is doing well, no questions re: prescriptions, f/u or instructions. Reviewed new medication listed for Lasix 40 mg po QD. pt states he is taking medications as prescribed. Pt left message with cardiology office and is expecting call back with appointment this afternoon. No further questions, and no care improvement suggestions were given. Radha HA RN ACM
== END 2019-06-05 15:03 | disposition home or self-care (01) | DRG 292 ==
LOC: ED 13:32 → PCU 15:51
PROVIDERS: Physician Assistant; Admitting Provider Hospitalist; Emergency Provider Emergency Medicine; Family Provider Nurse Practitioner Family; PCP Nurse Practitioner Family
DX: I11.0 Hypertensive heart disease with heart failure (principal); C85.10 Unspecified B-cell lymphoma, unspecified site; I50.23 Acute on chronic systolic (congestive) heart failure; I25.10 Atherosclerotic heart disease of native coronary artery without angina pectoris; E78.5 Hyperlipidemia, unspecified; I25.5 Ischemic cardiomyopathy; E11.9 Type 2 diabetes mellitus without complications; Z95.1 Presence of aortocoronary bypass graft; Z86.73 Personal history of transient ischemic attack (TIA), and cerebral infarction without residual deficits; I25.2 Old myocardial infarction; Z95.810 Presence of automatic (implantable) cardiac defibrillator; Z79.4 Long term (current) use of insulin; Z87.891 Personal history of nicotine dependence
CPT/HCPCS: 36415; 71046; 80048; 80053; 82962; 83735; 83880; 84443; 84484; 85025; 85610; 85730; 93005; 93306; 99285; Q9957; A4216; C8929; J1940

== ENCOUNTER → 2019-08-09 06:32 | Outpatient (CLI) | payer MEDICARE, MEDICAID, SELFPAY ==
[2019-07-20 11:40] VITALS: BMI 28.7
--- NOTE | 2019-08-09 09:33 | STRESSREP_ITS ---
Stress Test Report Pharmacologic myocardial perfusion stress test. 63-year-old male with a history of coronary artery bypass surgery with a HENRIQUEZ to the LAD saphenous vein graft to circumflex artery obtuse marginal branch posterior descending artery and right coronary artery. Stress protocol: Resting EKG demonstrates normal sinus rhythm with a rate of 73 bpm normal intervals are noted resting blood pressures 118/78 mmHg. 0.4 mg of regadenoson was infused per usual protocol followed by rapid intravenous saline flush injection continuous EKG monitoring was performed. The maximum heart rate attained was 96 bpm which was 61% of maximum predicted heart rate the maximum workload was 1 metabolic equivalent. At rest there were no ST or T wave changes noted suggest abnormal flow reserve at peak infusion nonspecific ST-T wave changes were noted. Myocardial perfusion protocol. 11.0 mCi of technetium 99m sestamibi was injected at rest. 0.4 mg of regad enoson was infused per usual protocol peak infusion 33.4 mCi of technetium 99m sestamibi was injected. Stress images were obtained stress and rest images were reconstructed and compared in the short axis vertical long horizontal long axis. Gated images were also obtained per Perfusion SPECT analysis: Review of the stress images demonstrate a mildly dilated cardiac silhouette. The anterior septal wall, anterior wall and lateral wall appeared to be well perfused. There is mild reduction of perfusion noted in the apex. The basal to mid inferior wall on the stress images demonstrates a large perfusion defect. The inferior apical wall has reduced perfusion which appears to improve mildly on the resting images suggesting a mild amount of distal inferior apical ischemia. The basal inferior and mid inferior wall defect is fixed. Gated SPECT analysis: The gated ejection fraction is noted to be 29%. Conclusion: Ischemic cardiomyopathy. Previous mid and basal inferior infarct. Previous apical infarct. Minimal vy-infarct ischemia noted in the distal inferior apical segments.
== END ==
PROVIDERS: Family Provider Nurse Practitioner Family; PCP Nurse Practitioner Family; Referring Provider Internal Medicine Cardiovascular Disease; Visit Provider Internal Medicine Cardiovascular Disease
DX: I25.10 Atherosclerotic heart disease of native coronary artery without angina pectoris (principal); I25.5 Ischemic cardiomyopathy; I25.2 Old myocardial infarction; Z95.1 Presence of aortocoronary bypass graft
CPT/HCPCS: 78452; 93017; A9500; A4216; J2785

== ENCOUNTER 2020-05-30 08:41 | Emergency (ER) | payer MEDICARE, MEDICAID, SELFPAY ==
[2019-09-28 13:06] VITALS: BMI 28.7
[2020-05-30 08:49] VITALS: BP 88/66; PULSE 89; RESP 16; TEMP 36.8; O2SAT 94; BMI 28.3
--- NOTE | 2020-05-30 09:23 | RAD_ITS ---
STUDY: X-RAY CHEST REASON FOR EXAM: Male, 64 years old. DYSPHAGIA, SORE THROAT X 3 DAYS TECHNIQUE: Single AP portable view of the chest. COMPARISON: Comparison is made with prior examination dated June 04, 2019. FINDINGS: The lungs are clear and expanded. There is no demonstrated pleural abnormality. Sternal cerclage wires and vascular clips are present from a prior sternotomy and coronary artery bypass graft procedure (CABG). A left-sided unipolar pacemaker is seen. Normal mediastinum and minna. Normal visualized pulmonary arteries. Normal visualized aortic arch and descending thoracic aorta. Surgical clips are seen adjacent to the aortic knob. Normal visualized thoracic spine. Normal visualized ribs, clavicles, and shoulders. There is no demonstrated abnormality of the visualized soft tissue structures of the upper abdomen. RAD/Chest 1 View (Portable) IMPRESSION: No acute abnormality is seen. Electronically Signed: Luis Alvarez, at 10:33 EDT , Service support ,
[2020-05-30 09:26] VITALS: BP 100/76
--- NOTE | 2020-05-30 09:28 | ED.DCSUM_ITS ---
History of Present Illness Chief Complaint: Sore Throat Informant: Patient Narrative: Patient is a 64-year-old male with a past medical history of diabetes, hyperlipidemia, CHF who presents to the emergency department for sore throat, dysphonia. This is been present over the past 3 days. States that he had multiple episodes of vomiting the night before. He states that he had an episode of binge drinking and had not had a drink in approximately 9 years prior to that. This caused him to be very nauseous and had the vomiting. Since then he has been having difficulty with swallowing due to pain. He denies having anything feel like it is getting stuck. He is tolerating fluids but it is very painful. He has not had any solids due to the pain. He tried doing lozenges drops but this did not really give him any relief. Does get some burning sensation whenever he has the vomiting he is having acid reflux. He denies any chest pain or shortness of breath. No difficulty handling secretions. He feels like his voice is hoarse at but also muffled. He has not had any fevers or chills. No known sick contacts. No painful neck movements. He does not feel like there is any swelling in his throat or neck. He denies any abdominal pain. Has not had a bowel movement in the last few days because he has not had anything in. He denies any urinary symptoms. He still has been taking his insulin but states he has not been checking his blood sugars over the past couple of days because of his symptoms. He denies any loss of taste but feels like some things have been tasting bitter to him. 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 Seth Harris MD) Father Myocardial infarction, Onset Age: 56 Diabetes Sudden cardiac Mother Diabetes Brother Diabetes HLD (hyperlipidemia) Sister Breast cancer Uncle Sudden cardiac Myocardial infarction Family History: Reports: Diabetes Paternal Family History: Family History (Last Reviewed 07/20/19 @ 11:[address] Seth Harris MD) Father Myocardial infarction, Onset Age: 56 Diabetes Sudden cardiac Mother Diabetes Brother Diabetes HLD (hyperlipidemia) Sister Breast cancer Uncle Sudden cardiac Myocardial infarction Family History: Reports: Heart Disease Review of Systems All systems negative except as indicated General: Denies: Chills, Fever, Sweats Eyes: Denies: Visual changes - bilaterally, Diplopia ENT: Reports: Sore throat. Denies: Bilateral ear pain, Rhinorrhea Cardiovascular: Denies: Chest pain, Palpitations Respiratory: Denies: Dyspnea, Cough, Dyspnea on exertion Gastrointestinal: Reports: Nausea, Vomiting. Denies: Abdominal pain, Diarrhea, Melena, Hematochezia Genitourinary: Denies: Dysuria, Hematuria, Frequency Musculoskeletal: Denies: Back pain, Extremity Pain Skin: Denies: Rash, Wounds Neurological: Denies: Headache, Weakness, Numbness Physical Exam Vital Signs/Narrative: Vital Signs Temp Pulse Resp BP Pulse Ox 05/30/20 09:26 100/76 05/30/20 08:49 98.2 F 89 16 88/66 L 94 Inital Vital Signs reviewed: Yes - Hypotension but otherwise normal vitals General: Well nourished, Well developed, No Acute Distress Head: Normocephalic, Atraumatic Eyes: Perrl, EOMI ENT: Moist mucous membranes, No rhinorrhea, - - Oropharynx is clear. Does have some posterior erythema but no oral lesions. Uvula is midline. No obvious abscesses/masses present. Voice does sound hoarse. No issues handling secretions. Laying back in bed comfortably. Neck: Supple, Nontender, - - No mass or crepitus appreciated. No significant tenderness. Cardiovascular: Regular rate, Regular rhythm, No murmurs Respiratory: No distress, CTA bilaterally, Chest nontender Abdomen: Soft, Nontender, Nondistended, Normal bowel sounds Back: Nontender, Normal Inspection Extremities: Nontender, No edema Skin: Normal color, No rash Neurological: Alert, Oriented x3, Cranial nerves II-XII grossly intact, Normal Strength, Normal Sensation Psychological: Normal affect, Normal Mood Diagnostic/Tx/Re-eval - Medical Decision Making Patient presents to the emergency department for sore throat and painful swallowing with some hoarse voice. This all occurred after he had multiple episodes of vomiting. He does not have any chest pain or fever/chills. He denies any hemoptysis. Given these findings we will do CT of the soft tissue neck as well as chest x-ray to evaluate for any perforation. He has not been checking his blood sugars so we will check basic lab work. He was mildly hypotensive but asymptomatic with this so we will give him some IV fluids as he has been having poor oral intake. Patient's lab work showed the creatinine to be slightly elevated compared to his baseline. He did receive a bolus of normal saline here in the emergency department. CT scan did not show any evidence of perforation or obvious factious source including abscess. Patient symptoms could be related to the esophagitis from the vomiting. Was able to tolerate liquids here in the emergency department. He did get a GI cocktail. He does need to follow-up with his PCP in the next 2 days. If he continues to have severe difficulty swallowing and becomes dehydrated he can return to the emerge department at any time. He is also to return to the emerge part if he develops any fevers or chills or difficulty with breathing. She understands and is agreeable this plan. Will discharge home in stable condition. 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
[2020-05-30] MEDS: 0.9% Normal Saline 1,000 ML 999 ML IV (09:46)
[2020-05-30 09:55] LABS: Absolute Lymphocyte Count 1.38 X10^3/uL (0.83-4.51); Absolute Neutrophil Count 10.1 X10^3/uL (2.0-7.7); Basophil# 0.06 X10^3/uL; Basophil% 0.5 % (0-1); Eosinophil# 0.04 X10^3/uL; Eosinophils% 0.3 % (0-5); Hematocrit 52.4 % (40-54); Hemoglobin 17.5 g/dL (13.0-16.5); Lymphocyte # 1.38 X10^3/ul (4.0); Lymphocyte % 10.6 % (19-41); Mean Corp Hgb Conc 33.4 g/dL (32-36); Mean Corpuscular Hgb 30.5 pg (27.0-32.0); Mean Corpuscular Volume 91.4 fL (80-94); Mean Platelet Vol. 10.4 fl (6.2-12.0); Monocyte# 1.34 X10^3/uL; Monocyte% 10.3 % (0-10); NRBC Flagged by Analyzer 0 % (0-5); Neutrophil % 77.7 % (47-70); Platelet Count 262 K/mm3 (150-450); RBC Distribution Width CV 13.4 % (11.6-14.6); RBC Distribution Width SD 44.5 fl (35.1-43.9); Red Blood Count 5.73 M/mm3 (4.6-6.2)
[2020-05-30 10:09] LABS: Anion Gap 10 (5-15); BUN 41 mg/dL (7-18); BUN/Creat Ratio 21.1 RATIO (10-20); Calcium,Total 9.6 mg/dL (8.5-10.1); Chloride 95 mmol/L (98-107); Creatinine, Serum 1.94 mg/dL (0.70-1.30); EST Glomerular Filtration Rate 37 mL/min (>60); Est Glom Filt Rate - Afr Amer 45 mL/min (>60); Estimated Creatinine Clearance 37.71 ml/min; Glucose 177 mg/dL (74-106); Potassium 4.2 mmol/L (3.5-5.1); Sodium Level 135 mmol/L (136-145)
--- NOTE | 2020-05-30 10:14 | CT_ITS ---
INDICATION: SORE THROAT/DYSPHAGIA/Dysphonia after vomiting. No IV contrast given d/t elev creatinine 1.94 and hx of lymphoma and diabetes. Prior CABG EXAMINATION: CT NECK - CT Neck Chest W/O Contrast Injection TECHNIQUE: Multiple axial images were obtained of the neck. A radiation dose optimization technique was used for this scan. IV Contrast dosage and agent: None. COMPARISON: None. FINDINGS: Atherosclerotic plaque formation of the carotid arteries bilaterally with at least 60-70% stenosis worse on the left side. Atherosclerotic plaque formation of the aortic arch. NASOPHARYNX: Unremarkable. SUPRAHYOID NECK: Unremarkable oropharynx, oral cavity, parapharyngeal space, and retropharyngeal space. INFRAHYOID NECK: Unremarkable larynx, hypopharynx, and supraglottis. THYROID: No focal lesions. SALIVARY GLANDS: Unremarkable. LYMPH NODES: No cervical or supraclavicular lymphadenopathy. VASCULAR STRUCTURES: Prior CABG. VISUALIZED PORTIONS OF THE ORBITS, PARANASAL SINUSES, MASTOID AIR CELLS AND SKULL BASE: Opacification of the left maxillary sinus and partial opacification of the ethmoid sinuses. BONES: Unremarkable. THORACIC INLET: Clear lung apices. CT/Soft Tissue Neck without Contr IMPRESSION: Opacification of the left maxillary sinus and partial opacification of the ethmoid sinuses. Atherosclerotic plaque formation of both internal carotid arteries bilaterally. Electronically Signed: Luis Alvarez, at 10:37 EDT , Service support ,
[2020-05-30] MEDS: Mag Hydrox/Al Hydrox/Simeth 30 ML UDC PO (11:11)
[2020-05-30 11:23] VITALS: BP 103/80; PULSE 79; RESP 16; O2SAT 100
== END 2020-05-30 11:24 | disposition home or self-care (01) ==
PROVIDERS: Emergency Provider Emergency Medicine; PCP Nurse Practitioner Family
DX: R13.10 Dysphagia, unspecified (principal); E86.0 Dehydration; J02.9 Acute pharyngitis, unspecified; I95.9 Hypotension, unspecified; I50.9 Heart failure, unspecified; R49.0 Dysphonia; E11.9 Type 2 diabetes mellitus without complications; E78.5 Hyperlipidemia, unspecified; R11.2 Nausea with vomiting, unspecified; K21.9 Gastro-esophageal reflux disease without esophagitis; Z79.84 Long term (current) use of oral hypoglycemic drugs; Z79.82 Long term (current) use of aspirin; Z79.4 Long term (current) use of insulin; Z79.899 Other long term (current) drug therapy; Z87.891 Personal history of nicotine dependence; Z95.1 Presence of aortocoronary bypass graft
CPT/HCPCS: 70490; 71045; 80048; 83735; 85025; 87880; 96360; 99283; J7030

== ENCOUNTER 2020-10-04 15:45 | Emergency (ER) | payer MEDICARE, MEDICAID, SELFPAY ==
[2020-07-18 13:41] VITALS: BMI 27.9
[2020-10-04 15:46] VITALS: BP 109/66; PULSE 87; RESP 16; TEMP 36.2; O2SAT 99; BMI 27.6
--- NOTE | 2020-10-04 16:10 | EKG12_ITS ---
Test Reason : SOB Blood Pressure : / mmHG Vent. Rate : 083 BPM Atrial Rate : 083 BPM P-R Int : 180 ms QRS Dur : 116 ms QT Int : 392 ms P-R-T Axes : 053 -14 123 degrees QTc Int : 460 ms Sinus rhythm with occasional Premature ventricular complexes Possible Inferior infarct , age undetermined ST & T wave abnormality, consider lateral ischemia Abnormal ECG Confirmed by TONYA JULIEN, COCO ([id number]), editor book LENA FREGOSO ([id number]) on 10/06/2020 11:06:08 AM Referred By: JOSEPH Confirmed By:COCO CASTNAEDA MD
--- NOTE | 2020-10-04 16:12 | ED.VISSUMM ---
- ER Visit Summary Date of Service: 10/04/20 Chief Complaint: Shortness of breath History of Present Illness: The patient is a 65 M hx of CVA, CAD, PA history, renal sufficiency, CHF, dilated cardiomyopathy, status post lymphoma 8 years ago, diabetes and pacemaker defibrillator. Patient states has been short of breath for about a week. Progressively getting worse. Worse supine. He denies any chest pain. He denies any fever chills or cough. No obvious exposure to Covid. No history of DVT or PE. No leg pain or swelling. No hemoptysis. No chest pain. Physical Examination: Older male no acute distress vital signs stable afebrile pulse ox 91% on room air. Sitting upright in bed. H EENT exam unremarkable. Neck nontender no JVD. Lungs clear to auscultation bilaterally. Heart regular rhythm no murmur. Left chest wall pacemaker. Abdomen soft nontender normal bowel sounds no peritoneal signs. Moving all 4 extremities. Calves are nontender without edema or cords. Neurologically is awake alert with no focal motor deficits. Test Results: Chest x-ray no acute process read both myself and the radiologist. Portable 1 view film. No significant signs of CHF or effusions. EKG shows sinus rhythm rate 83 with PVCs no change from her prior EKG earlier this year. Old inferior PA. CBC showed a white count of 14.5 with a hemoglobin of 14. No bands. Chemistries unremarkable except his creatinine is elevated 3.1 consistent with acute on chronic renal insufficiency. He normally runs around 1.9. Troponin normal. BNP elevated at 1078 consistent with congestive heart failure. Covid test is pending. Emergency Department Course and Treatment: 65-year-old male with shortness of breath worse supine. History of CHF which is high on the differential versus other etiologies. Labs chest x-ray EKG will be obtained. Currently is very stable. Repeat exam patient is doing well at 1950 p.m. He was ambulated in the room by nursing staff without oxygen he stayed above 95%. He is comfortably discharged home. We will continue his current medications. Follow-up with his strategic consultant Dr. Dorothy morris for reevaluation for his CHF. Treatment Plan: Continue current medications. Outpatient follow-up either with his primary care physician or his strategic consultant for repeat evaluation of CHF and repeat blood work to recheck his elevated creatinine. Disposition: Discharge Impression: Acute dyspnea secondary to acute on chronic CHF Acute on chronic renal insufficiency with a creatinine of 3.16 History of CHF and dilated cardiomyopathy History of diabetes History of CVA and CAD with prior quadruple bypass History of pacemaker defibrillator History of prior lymphoma This note was generated with [employer] dictation software. It may contain incorrect words, spelling, and punctuation that were not noted in review of the chart prior to signing ED Disposition - Plan for ED Patient: Referrals: Little Horn NP, RN CLINICAL DOCUMENTATION SPECIALIST-C [Primary Care Provider] -
[2020-10-04 16:28] LABS: Absolute Lymphocyte Count 1.86 X10^3/uL (0.83-4.51); Absolute Neutrophil Count 11.1 X10^3/uL (2.0-7.7); Basophil# 0.07 X10^3/uL; Basophil% 0.5 % (0-1); Eosinophil# 0.29 X10^3/uL; Hematocrit 46.3 % (40-54); Hemoglobin 14.9 g/dL (13.0-16.5); Lymphocyte # 1.86 X10^3/ul (4.0); Lymphocyte % 12.8 % (19-41); Mean Corp Hgb Conc 32.2 g/dL (32-36); Mean Corpuscular Hgb 29.8 pg (27.0-32.0); Mean Corpuscular Volume 92.6 fL (80-94); Mean Platelet Vol. 11.4 fl (6.2-12.0); Monocyte% 8.3 % (0-10); NRBC Flagged by Analyzer 0 % (0-5); Neutrophil # 11.05 X10^3/uL (2.7-7.7); Platelet Count 275 K/mm3 (150-450); RBC Distribution Width CV 13.3 % (11.6-14.6); White Blood Count 14.5 K/mm3 (4.4-11.0)
--- NOTE | 2020-10-04 16:45 | RAD_ITS ---
STUDY: X-RAY CHEST REASON FOR EXAM: Male, 65 years old. INCREASED SOB. STATES HX OF CHF. TECHNIQUE: Single frontal view of the chest. COMPARISON: 05/30/2020 FINDINGS: Sternotomy wires. Unipolar pacer on the left. The lungs are clear and expanded. There is no demonstrated pleural abnormality. Normal size heart. Normal mediastinum and minna. Normal visualized pulmonary arteries. Normal visualized aortic arch and descending thoracic aorta. Normal visualized thoracic spine. Normal visualized ribs, clavicles, and shoulders. There is no demonstrated abnormality of the visualized soft tissue structures of the upper abdomen. RAD/Chest 1 View (Portable) IMPRESSION: No acute disease Electronically Signed: Taran Dale MD at 17:04 EST , Service support ,
[2020-10-04 16:49] LABS: BNP,B-Type NATRIURETIC PEPTIDE 1078.1 pg/mL (0-100)
[2020-10-04 16:51] LABS: Anion Gap 8 (5-15); BUN 61 mg/dL (7-18); BUN/Creat Ratio 19.3 RATIO (10-20); Calcium,Total 9.3 mg/dL (8.5-10.1); Chloride 100 mmol/L (98-107); Creatinine, Serum 3.16 mg/dL (0.70-1.30); EST Glomerular Filtration Rate 21 mL/min (>60); Est Glom Filt Rate - Afr Amer 26 mL/min (>60); Estimated Creatinine Clearance 22.85 ml/min; Glucose 63 mg/dL (74-106); Potassium 4.1 mmol/L (3.5-5.1); Sodium Level 136 mmol/L (136-145)
[2020-10-04 16:56] VITALS: BP 93/72; PULSE 83; RESP 20; O2SAT 95; O2SAT 96
[2020-10-04 18:41] VITALS: BP 119/87; PULSE 84; RESP 25; O2SAT 95
[2020-10-04 19:00] VITALS: O2SAT 96
[2020-10-04 19:09] VITALS: BP 131/92; PULSE 82; RESP 24; O2SAT 97
--- NOTE | 2020-10-04 19:57 | DCINST.ED_ITS ---
ED Disposition - Plan for ED Patient: Disposition: Home or Assisted Living Instructions: ED CHF General Referrals: Little Horn NP, PLANT MAINTENANCE MECHANIC-C [Primary Care Provider] - 3-5 Days Seth Harris MD [[facility]] - As soon as possible Additional Instructions: Continue your current medications. Follow-up with either your primary care physician or more importantly your methodologist Dr. Seth Harris in the next several days to be rechecked for congestive heart failure. Also your kidney function your creatinine was elevated today and needs to be rechecked within the next week or so. Return to emergency room if you are feeling worse.
[2020-10-04 20:27] VITALS: BP 122/87; PULSE 82; RESP 16; O2SAT 98
--- NOTE | 2020-10-04 20:28 | ED.RN ---
PT EDUCATED ON WRITTEN AND VERBAL DISCHARGE INSTRUCTIONS AND HOME GOING PAPERWORK PT EDUCATED ON COVID, AND [facility]. PT EDUCATED TO FOLLOW UP WITH DR. SALEH SOON POSSIBLE TO BE RECHECKED FOR CHF AND TO RETURN TO THE EMERGENCY DEPARTMENT FOR ANY NEW OR WORSENED SX. IV D/C. PT VERBALIZES UNDERSTANDING AND DENIES ANY FURTHER QUESTIONS.
== END 2020-10-04 20:31 | disposition home or self-care (01) ==
PROVIDERS: Emergency Provider Emergency Medicine; PCP Nurse Practitioner Family
DX: I13.0 Hypertensive heart and chronic kidney disease with heart failure and stage 1 through stage 4 chronic kidney disease, or unspecified chronic kidney disease (principal); I43 Cardiomyopathy in diseases classified elsewhere; E11.22 Type 2 diabetes mellitus with diabetic chronic kidney disease; I50.9 Heart failure, unspecified; N18.9 Chronic kidney disease, unspecified; I42.0 Dilated cardiomyopathy; N28.9 Disorder of kidney and ureter, unspecified; I25.10 Atherosclerotic heart disease of native coronary artery without angina pectoris; Z79.82 Long term (current) use of aspirin; Z79.4 Long term (current) use of insulin; Z79.899 Other long term (current) drug therapy; I25.2 Old myocardial infarction; Z86.73 Personal history of transient ischemic attack (TIA), and cerebral infarction without residual deficits; Z85.72 Personal history of non-Hodgkin lymphomas; Z95.810 Presence of automatic (implantable) cardiac defibrillator; Z95.1 Presence of aortocoronary bypass graft
CPT/HCPCS: 71045; 80048; 83880; 84484; 85025; 87635; 93005; 99284; A4216; U0003

== ENCOUNTER 2020-12-08 13:41 | Observation (INO) | payer MEDICARE, MEDICAID, SELFPAY ==
[2020-12-08 13:41] VITALS: BP 119/81; PULSE 96; RESP 22; TEMP 36.6; O2SAT 99; BMI 29.4
--- NOTE | 2020-12-08 14:07 | EKG12_ITS ---
Test Reason : SOB Blood Pressure : / mmHG Vent. Rate : 088 BPM Atrial Rate : 088 BPM P-R Int : 180 ms QRS Dur : 120 ms QT Int : 396 ms P-R-T Axes : 045 -13 132 degrees QTc Int : 479 ms Normal sinus rhythm Possible Inferior infarct , age undetermined ST & T wave abnormality, consider lateral ischemia Abnormal ECG Confirmed by DELFINO JULIEN, HEIDI ([id number]), graphics editor SHANTE CHO ([id number]) on 12/13/2020 6:32:58 AM Referred By: HAYDEE Confirmed By:HEIDI SALEH MD
--- NOTE | 2020-12-08 14:21 | ED.VISSUMM ---
- ER Visit Summary Date of Service: 12/08/20 Chief Complaint: Shortness of breath History of Present Illness: The patient is a [address] Harris and Dr. Horn. He reports his shortness of breath began 4 days ago. It is severe with exertion or laying flat. It is mild at rest. He denies any fever, chills, cough, or chest pain. He denies sick contacts. He does wear a mask. He does not perform daily weights. He reports that his goal weight is 181. Patient had his Lasix increased from 40 mg to 80 mg 220 mg beginning on December 04. Ports that his urine output increased when he was taking 120 mg, but that this is been decreased as his creatinine was increasing. Patient does not use home O2. Physical Examination: Vitals: Stable. Afebrile. General: Well-nourished and well-developed. Head: Normocephalic atraumatic. Neck: Supple, no lymphadenopathy. No JVD. Nontender. Cardiovascular: Regular rate and rhythm. No murmurs. Respiratory: No respiratory distress. Crackles at the left base. Abdominal: Soft, nontender, nondistended, normal bowel sounds. No guarding, rebound, or peritoneal signs. Back: Nontender. Extremities: Nontender, no edema. Skin: Normal color, no rash. Neurologic: Alert and oriented ?3. Cranial nerves II through XII are intact. Normal strength and sensation. Psych: Normal affect. Test Results: EKG is sinus at [address] changes and T wave inversions in leads I and aVL. QRS interval is 120. However this was unchanged from last year. Troponin is normal. BNP is 821.5. Chem-7 shows a BUN of 42, creatinine 2.09, glucose of 123. Creatinine ranged between 1.94-3.16 in 2019. CBC shows lymphocytes of 17 and monocytes of 11. COVID-19 rapid antigen is negative. Clinical Impression(s) from Imaging Studies Chest X-Ray 12/08/20 14:30 IMPRESSION: Mild degree of increased markings at the left lung base with blunting of left costophrenic angle. This may represent either left basilar atelectasis and/or early infiltrate. Electronically Signed: Luis Alvarez, at 14:50 EST , Service support , Emergency Department Course and Treatment: Patient is resting comfortably and his pulse ox is normal on room air at rest. However, he reports that he is very short of breath with any exertion. Treatment Plan: Attempted been made at [facility] as an outpatient. His chest x-ray does not show CHF. In my opinion the findings in the left lower lobe are due to atelectasis rather than infiltrate. His white count is normal. He denies cough. Patient will be discussed with the hospitalist admitted for further evaluation and treatment. Disposition: Admitted in stable condition. Impression: 1. Dyspnea, uncertain cause. 2. Chronic renal insufficiency. 3. Ejection fraction of approximately 15%. This note was generated with [employer] dictation software. It may contain incorrect words, spelling, and punctuation that were not noted in review of the chart prior to signing ED Disposition - Plan for ED Patient: Referrals: Little Horn NP, STRATEGIC INSIGHTS LEAD-C [Primary Care Provider] -
--- NOTE | 2020-12-08 14:30 | RAD_ITS ---
STUDY: X-RAY CHEST REASON FOR EXAM: Male, 65 years old. Increased sob also kidney failure. Creat worse at 3.[address] connelly TECHNIQUE: Single AP portable view of the chest. COMPARISON: Comparison is made with prior study dated 10/04/2020. FINDINGS: EKG electrodes are seen. Mild increased markings at the left lung base suggestive of left basilar atelectasis and/or early infiltrate. This has progressed as compared to prior study. Blunting of the left costophrenic angle. Sternal cerclage wires and vascular clips are present from a prior sternotomy and coronary artery bypass graft procedure (CABG). A left-sided unipolar pacemaker is seen. Normal mediastinum and minna. Normal visualized pulmonary arteries. Normal visualized aortic arch and descending thoracic aorta. Normal visualized thoracic spine. Normal visualized ribs, clavicles, and shoulders. There is no demonstrated abnormality of the visualized soft tissue structures of the upper abdomen. RAD/Chest 1 View (Portable) IMPRESSION: Mild degree of increased markings at the left lung base with blunting of left costophrenic angle. This may represent either left basilar atelectasis and/or early infiltrate. Electronically Signed: Luis Alvarez, at 14:50 EST , Service support ,
[2020-12-08 14:40] LABS: Absolute Lymphocyte Count 1.49 X10^3/uL (0.83-4.51); Absolute Neutrophil Count 5.8 X10^3/uL (2.0-7.7); Basophil# 0.06 X10^3/uL; Basophil% 0.7 % (0-1); Eosinophil# 0.19 X10^3/uL; Eosinophils% 2.2 % (0-5); Hematocrit 44.2 % (40-54); Hemoglobin 14.4 g/dL (13.0-16.5); Lymphocyte # 1.49 X10^3/ul (4.0); Lymphocyte % 17.4 % (19-41); Mean Corp Hgb Conc 32.6 g/dL (32-36); Mean Corpuscular Hgb 28.4 pg (27.0-32.0); Mean Corpuscular Volume 87.2 fL (80-94); Mean Platelet Vol. 10.9 fl (6.2-12.0); Monocyte# 0.93 X10^3/uL; Monocyte% 10.9 % (0-10); NRBC Flagged by Analyzer 0 % (0-5); Neutrophil # 5.84 X10^3/uL (2.7-7.7); Neutrophil % 68.3 % (47-70); Platelet Count 233 K/mm3 (150-450); RBC Distribution Width CV 15.2 % (11.6-14.6); RBC Distribution Width SD 47.6 fl (35.1-43.9); Red Blood Count 5.07 M/mm3 (4.6-6.2); White Blood Count 8.6 K/mm3 (4.4-11.0)
[2020-12-08 15:01] LABS: BNP,B-Type NATRIURETIC PEPTIDE 821.5 pg/mL (0-100)
[2020-12-08 15:05] LABS: Anion Gap 6 (5-15); BUN 42 mg/dL (7-18); BUN/Creat Ratio 20.1 RATIO (10-20); Calcium,Total 9.4 mg/dL (8.5-10.1); Chloride 106 mmol/L (98-107); Creatinine, Serum 2.09 mg/dL (0.70-1.30); EST Glomerular Filtration Rate 34 mL/min (>60); Est Glom Filt Rate - Afr Amer 41 mL/min (>60); Estimated Creatinine Clearance 34.55 ml/min; Glucose 123 mg/dL (74-106); Potassium 3.5 mmol/L (3.5-5.1); Sodium Level 139 mmol/L (136-145)
[2020-12-08 15:06] VITALS: O2SAT 94
--- NOTE | 2020-12-08 15:42 | PCM.HP.STD ---
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 transplanted heart: [place] heart Qualified Code(s): I25.810 - Atherosclerosis of coronary artery bypass graft(s) without angina pectoris (6) H/O coronary artery bypass surgery Status: Resolved Comment: CABG x 4 HENRIQUEZ-LAD, SVG-Ramus, SVG-OM1, SVG-RPDA 03/19/2013 (7) Ischemic cardiomyopathy Status: Chronic (8) History of implantable cardiac defibrillator (ICD) Status: Chronic (9) Essential (primary) hypertension Status: Chronic (10) Hyperlipidemia Status: Chronic Qualifiers: Hyperlipidemia type: unspecified Qualified Code(s): E78.5 - Hyperlipidemia, unspecified (11) Large B-cell lymphoma Status: Chronic History of Present Illness Date of Admission: 12/08/20 Chief Complaint: Worsening dyspnea, worsening renal function. The patient is a 65 y/o M w/ PMHx: CKD stage III, Chronic systolic/diastolic CHF, Ischemic Cardiomyopathy, Hx TIA, Diabetes mellitus type II, Large B Cell Lymphoma, CAD s/p CABG X4 HENRIQUEZ TO LAD, SVG TO RAMUS, SVG TO OM1, SVG TO RPDA 2012, HTN, HLD who presents to the [facility] ED on 12/08/20 with history of ongoing attempts to diurese outpatient with significant increase of his regimen without improvement of his dyspnea, with no specific weight increase as he notes he is not been weighing himself however his weights have altered from the office weights per report and he denies any specific edema but states his abdomen feels more full which is his primary complaint he does have he notes significant orthopnea. Patient referred to the ED per cardiology office given he is ongoing complaints. Work-up in the ED included T 97.8, heart rate 96, BP 119/81, respiratory rate 22, 99% on room air, CBC with WC 8.6, hemoglobin 14.4, platelets 233 without marked shift, BMP with BUN/creatinine 42/2.09, glucose 123, troponin 0 0.015, BNP 821.5, Covid rapid antigen testing negative, chest x-ray with mild decrease of increased markings left lung base with blunting of the left costophrenic angle possibly left basilar atelectasis and/or early infiltrate, EKG with sinus rhythm with nonspecific ST changes and T wave inversions in lead I and aVL. Past Medical History Past Medical History (Chronic Problems): Chronic Problems (Last Reviewed 07/18/20 @ 14:[address] Seth Harris MD) Diabetes mellitus, type II (Chronic) History of TIA (transient ischemic attack) (Chronic) Chronic kidney disease, stage III (moderate) (Chronic) Atherosclerosis of coronary artery bypass graft without angina pectoris (Chronic) Old inferior wall myocardial infarction (Chronic) 09/2017 inf/apical Ischemic cardiomyopathy (Chronic) History of implantable cardiac defibrillator (ICD) (Chronic 04/16/18) Non-rheumatic tricuspid valve insufficiency (Chronic) Secondary pulmonary arterial hypertension (Chronic) Essential (primary) hypertension (Chronic) Hyperlipidemia (Chronic) Large B-cell lymphoma (Chronic) Medical History: Medical History (Last Reviewed 07/18/20 @ 14:[address] Seth Harris MD) Atherosclerosis of coronary artery bypass graft without angina pectoris (Chronic) I25.810 Old inferior wall myocardial infarction (Chronic) I25.2 09/2017 inf/apical Ischemic cardiomyopathy (Chronic) I25.5 Acute on chronic combined systolic (congestive) and diastolic (congestive) heart failure (Chronic) I50.43 Non-rheumatic tricuspid valve insufficiency (Chronic) I36.1 Secondary pulmonary arterial hypertension (Chronic) I27.21 Essential (primary) hypertension (Chronic) I10 Hyperlipidemia (Chronic) E78.5 Large B-cell lymphoma (Chronic) C85.10 Chronic kidney disease N18.9 History of TIA (transient ischemic attack) Type 2 diabetes mellitus E11.9 Chronic systolic (congestive) heart failure (Inactive) I50.22 Allergies pregabalin [From Lyrica] Allergy (Verified 12/08/20 13:43) PT UNSURE OF REACTION Home Medications: Ambulatory Orders Medication Instructions Recorded Aspirin [Adult Low Dose Aspirin EC] 81 mg PO DAILY 11/28/16 Insulin Aspart [Novolog Flexpen] 3 - 20 units SQ 4X/DAY 11/28/16 Insulin Glargine,Hum.rec.anlog 33 unit SQ QHS 06/04/19 [Basaglar Kwikpen U-100] carvedilol 12.5 mg tablet 12.5 mg PO BID #180 tab 05/23/20 Nortriptyline HCl [Pamelor] 25 mg PO DAILY 05/30/20 Liraglutide [Victoza] 1.8 mg SQ DAILY 10/04/20 furosemide 40 mg tablet 40 mg PO .COMPLEX tab 12/04/20 Surgical History: Surgical History (Last Reviewed 07/18/20 @ 14:[address] 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 Psychiatric History: No pertinent psych hx Lives: Spouse/ Significant Other - Patient was with his girlfriend. Smoking Status: Former smoker - Patient notes he previously smoked cigars, quit 20 years prior to current presentation. Tobacco Use: Non-smoker Alcohol: None Drugs: None - *Family History Maternal Family History: Family History (Last Reviewed 07/18/20 @ 14:[address] Seth Harris MD) Father Myocardial infarction, Onset Age: 56 Diabetes Sudden cardiac Mother Diabetes Brother Diabetes HLD (hyperlipidemia) Sister Breast cancer Uncle Sudden cardiac Myocardial infarction History Items: Cancer, Diabetes Paternal Family History: Family History (Last Reviewed 07/18/20 @ 14:[address] Seth Harris MD) Father Myocardial infarction, Onset Age: 56 Diabetes Sudden cardiac Mother Diabetes Brother Diabetes HLD (hyperlipidemia) Sister Breast cancer Uncle Sudden cardiac Myocardial infarction History Items: Heart Disease Review of Systems Constitutional: Reports: Malaise, Weakness, Fatigue. Denies: Chills, Fever, Weight Change HEENT: Denies: Head Aches, Sinus Congestion, Sinus Drainage Cardiovascular: Reports: Orthopnea. Denies: Chest Pain, Chest Pressure, Chest Tightness, Light Headedness, Palpitations Respiratory: Reports: Shortness of Breath, Shortness of breath at rest, Shortness of breath upon exertion. Denies: Cough, Sputum production Gastrointestinal: Reports: - - Abdominal distention and fullness sensation.. Denies: Abdominal Pain, Nausea, Vomiting Genitourinary: Denies: Dysuria Musculoskeletal: Reports: Joint Pain. Denies: Joint Tenderness Skin: Denies: Rash, Wounds Neurological: Denies: Numbness, Tingling, Focal weakness Psychiatric: Denies: Anxiety, Depression, Homicidal Ideations, Suicidal Ideations Hematologic/ Lymphatic: Reports: Easy Bruising, Easy Bleeding VTE Information - Inpt Only VTE Present on Admission: No VTE Mechan Device Prophylaxis: SCD's VTE Pharm Prophylaxis ordered?: Yes Patient Problems: Active and Suspected Problems (Last Reviewed 07/18/20 @ 14:[address] Seth Harris MD) Acute on chronic combined systolic (congestive) and diastolic (congestive) heart failure (Acute) Subjective: Patient seated upright in the ED bed, no acute distress, seated specifically upright as notes that if he attempts to lie flat he becomes more short of breath. Objective: Physical Examination: General: awake, alert, oriented x 3 and cooperative, seated upright in the ED bed, fatigued appearance otherwise no acute distress although is sitting yuly karla upright as he notes he cannot lay back secondary to onset of dyspnea. Skin: normal color, turgor, no icterus, cyanosis. HEENT: AT/NC, EOMI, PERRLA, mildly dry MM, no carotid bruits, no marked JVD noted. Lungs: Diminished breath sounds, greater bases, normal effort, no rales, ronchi or wheezing. Heart: Regular rate and rhythm; no gallop, rub audible. Abdomen: soft, nontender, significantly distended, no specific fluid wave, distant normal bowel sounds, unable to discern HSM secondary to distention. Extremities: no cyanosis, clubbing, or edema. Neurological: patient awake, alert, oriented x 3; cognitive function intact; pupils equally reactive to light and accomodation; cranial nerves II-XII grossly normal, moving all 4 extremities, no focal deficits, strength moderately to severely global decrease secondary to acute complaints. Psychiatric: affect appears fatigued otherwise normal, no acute evidence of depressive or anxiety feelings. - Physical Exam Vitals/I&O's: Vital Signs Temp Pulse Resp BP Pulse Ox 97.8 F 96 22 H 119/81 H 99 12/08/20 13:41 12/08/20 13:41 12/08/20 13:41 12/08/20 13:41 12/08/20 13:41 Oxygen Delivery Method Room Air Weight: 193 lb 9.054 oz Body Mass Index (BMI) 29.4 Microbiology Past 72 Hours 12/08/20 14:39 Mucosa - Nose SARS-CoV-2 Antigen (Rapid) - Final Laboratory Results 12/08/20 14:25: WBC 8.6, RBC 5.07, Hgb 14.4, Hct 44.2, MCV 87.2, MCH 28.4, MCHC 32.6, RDW Std Deviation 47.6 H, RDW Coeff of Kelsea 15.2 H, Plt Count 233, MPV 10.9, Immature Gran % (Auto) 0.500, Neut % (Auto) 68.3, Lymph % (Auto) 17.4 L, Mitchell % (Auto) 10.9 H, Eos % (Auto) 2.2, Baso % (Auto) 0.7, Absolute Neuts (auto) 5.8, Absolute Lymphs (auto) 1.49, Nucleated RBC % 0 12/08/20 14:25: Sodium 139, Potassium 3.5, Chloride 106, Carbon Dioxide 27.0, Anion Gap 6, BUN 42 H, Creatinine 2.09 H, Estim Creat Clear Calc 34.55, Est GFR (MDRD) Af Amer 41 L, Est GFR (MDRD) Non-Af 34 L, BUN/Creatinine Ratio 20.1 H, Glucose 123 H, Calcium 9.4, Troponin I 0.015 12/08/20 14:25: B-Natriuretic Peptide 821.5 H Assessment/Plan All Active Problems (Last Reviewed 07/18/20 @ 14:[address] Seth Harris MD) Poor balance (Acute) H/O coronary artery bypass surgery (Resolved 03/19/13) Acute on chronic combined systolic (congestive) and diastolic (congestive) heart failure (Acute) The patient is a 65 y/o M w/ PMHx: CKD stage III, Chronic systolic/diastolic CHF, Ischemic Cardiomyopathy, Hx TIA, Diabetes mellitus type II, Large B Cell Lymphoma, CAD, HTN, HLD who presents to the [facility] ED on 12/08/20 with history of ongoing attempts to diurese outpatient with significant increase of his regimen without improvement of his dyspnea, with no specific weight increase as he notes he is not been weighing himself however his weights have altered from the office weights per report and he denies any specific edema but states his abdomen feels more full which is his primary complaint he does have he notes significant orthopnea. 1. Dyspnea, worsening, possible Acute on Chronic Systolic/Diastolic CHF exacerbation: Given presentation, some suspicion of possible additional etiology, BNP not as severe as previously, chest x-ray not severe appearing, primary complaint abdominal fullness with noted distention, does have significant history of lymphoma previously, will admit to PCU, maintain on case monitor, obtain cardiac enzyme series, obtain serial EKGs, will obtain CT chest without contrast given renal fx and will obtain abdominal US, given unclear etiology and possibly CHF will administer IV lasix diuresis, will obtain ECHO repeat as noted most recent ECHO 06/04/2019 with normal LV size, EF 15%, severe segmental systolic dysfunction, stage II diastolic dysfunction, moderate TBI, moderate pulmonary hypertension, monitor I/Os, maintain on intake restriction, continue medical therapy, obtain TSH and magnesium level. Will await these studies and pending the findings may consider Cardiology consultation. 2. CAD: s/p CABG X4 HENRIQUEZ TO LAD, SVG TO RAMUS, SVG TO OM1, SVG TO RPDA 2012, will continue asa, coreg, not on ACEI/ARB, not on statin. 3. Hypertension: Continue home regimen including Coreg, IV Lasix as noted, PRN hydralazine. 4. Hyperlipidemia: Not on statin, unclear specific reason, possibly prior intolerance, AM FLP. 5. Chronic Kidney Disease Stage III: Admission BUN/Cr 42/2.09, baseline renal function appears previously 1.5-1.9 most recently 05/30/2020 however did increase on 09/1122 3.16 and in 2013 was noted to be 1.1-1.4 baseline, repeat BMP in AM. 6. Diabetes mellitus type II: Will continue home insulin regimen, ADA diet, accu checks w/ ISS. 7. History TIA: We will continue aspirin, hypertensive regimen, not on statin, defer to outpatient. 8. History of large B-cell lymphoma: Given current presentation abdominal ultrasound pending, noted previously had been in remission, diagnosed originally in 2011 he notes. 9. So DVT prophylaxis: SCDs, Lovenox. 10. CODE status: Patient HCPRODO is his Max's twin brother and he notes he does not have a living will currently in place. Discussed CODE status at length including difference between FULL code, DNR-CCA and DNR-CC status. Following discussions about the differences in these status, requested Full Code status. Advanced Care Planning Face to Face Time: 16 minutes. OBSV E&M: 46714 Initial observation care L3 Procedures: [id number] Advncd Care Plan 30 Min
--- NOTE | 2020-12-08 16:03 | NURSING ---
PCU OBS WHITE DYSPNEA
[2020-12-08 16:22] VITALS: BP 112/86; PULSE 90; RESP 20; TEMP 36.5; O2SAT 95
--- NOTE | 2020-12-08 18:45 | ECHOD_ITS ---
Reason For Study: CHF Procedure This was a 2D Doppler, Color Flow transthoracic echocardiogram. The study was technically difficult. Deferred Definity due to increased PAP. Exam performed portable in patient room. Left Ventricle Normal LV size. Severe segmental systolic dysfunction (see wall motion). The estimated ejection fraction is 20 %. There is evidence of diastolic dysfunction. Posterior-Basal: Hypokinetic. Infero- Basal: Akinetic. Basal inferoseptal: Akinetic. Basal anteroseptal: Hypokinetic. Mid-Anterior : Hypokinetic. Mid-Lateral : Hypokinetic. Mid-Posterior: Akinetic. Mid-Inferior: Akinetic. Mid- inferoseptal : Akinetic. Mid-anteroseptal : Akinetic. Anterior [place] : Akinetic. Inferior [place] : Akinetic. Lateral [place] : Hypokinetic. Septal [place] : Akinetic. Right Ventricle Normal RV size. ICD or pacer leads identified within the right ventricle. Normal systolic function. Atria The left atrium is mildly enlarged. Normal right atrium. ICD or pacer leads identified within the right atrium. No doppler evidence for ASD. Mitral Valve There is mild to moderate mitral annular calcification. Extension of the mitral annular calcification onto the base of the mitral valve leaflets. Moderate (2+) mitral valve insufficiency. Tricuspid Valve Normal tricuspid valve. Moderate (2+) tricuspid valve insufficiency. Right ventricular systolic pressure estimated to be 63 mmHg. Aortic Valve Trisinus/trileaflet aortic valve. Mild focal aortic valve calcification. Pulmonic Valve The pulmonic valve is not well visualized. Great Vessels Normal sized aortic root. Calcified aortic root. Pericardium/Pleural No pericardial effusion. MMode/2D Measurements & Calculations LVIDd: 4.7 cm IVSd: 1.0 cm Ao root diam: 3.3 cm LVIDs: 4.5 cm LVPWd: 0.84 cm RVDd: 3.7 cm FS: 5.4 % LAV(MOD-bp): 63.3 ml LA A4 area: 19.8 cm2 LA dimension(2D): 5.1 cm LAV(MOD-bp) Indexed: 32.1 ml/m2 LAV(MOD-sp2): 63.3 ml LAV(MOD-sp4): 57.9 ml RA A4 area: 15.7 cm2 Time Measurements MV dec time: 0.15 sec Doppler Measurements & Calculations MV E max johnny: 128.6 cm/sec Lat Peak E' Johnny: 6.7 cm/sec Med Peak E' Johnny: 4.6 cm/sec MV A max johnny: 44.3 cm/sec E/E' lat: 19.3 E/E' med: 27.7 MV E/A: 2.9 Ao V2 max: 163.7 cm/sec LV V1 max: 66.8 cm/sec PA V2 max: 60.3 cm/sec Ao max P.7 mmHg LV V1 max P.8 mmHg TR max johnny: 368.8 cm/sec TR max P.5 mmHg Interpretation Summary The study was technically difficult. Severe segmental systolic dysfunction (see wall motion). The estimated ejection fraction is 20 %. The left atrium is mildly enlarged. There is mild to moderate mitral annular calcification. Extension of the mitral annular calcification onto the base of the mitral valve leaflets. Moderate (2+) mitral valve insufficiency. Moderate (2+) tricuspid valve insufficiency. Mild focal aortic valve calcification. Calcified aortic root. Right ventricular systolic pressure estimated to be 63 mmHg c/w pulmonary hypertension. There is evidence of diastolic dysfunction. Ordering Physician: Marianna Reed Referring Physician: [place] Performed By: Anabella Lindsay, RDJACKELINE, RVT
--- NOTE | 2020-12-08 18:45 | US_ITS ---
STUDY: ABDOMINAL ULTRASOUND REASON FOR EXAM: Male, 65 years old. ABD DISTENTION AND PAIN TECHNIQUE: Transabdominal ultrasound was performed with real-time and static lee scale imaging. TECHNICAL QUALITY: Adequate. COMPARISON: Prior abdomen and pelvic CT exam of 09/24/2012 FINDINGS: Liver: The liver measures 16.6 cm. There is normal echogenicity of the liver. The bile ducts are within normal limits. There is hepatic color flow. The direction of portal flow is hepatopetal. There is no demonstrated mass lesion. Portal vein measurement: Gallbladder: Distended gallbladder. The gallbladder wall measures 5 mm. There is a negative sonographic [place]''s sign. There is no pericholecystic fluid. Multiple gallstones and substantial sludge in the gallbladder. Common Bile Duct (C.B.D.): The common bile duct measures 5 mm. Pancreas: Inadequately visualized secondary to bowel gas. Spleen: Normal size of the spleen. The spleen measures 10.8 x 3.8 x 3.9 cm. Right Kidney: Normal size of the right kidney. The right kidney measures 10.5 x 4.8 x 5.1 cm. Normal renal cortex. The right cortex measures 1.4 cm. There is no demonstrated renal mass or cyst. There is no right hydronephrosis. Left Kidney: Normal size of the left kidney. The left kidney measures 11.0 x 3.6 x 4.9 cm. Normal renal cortex. The left cortex measures 1.7 cm. There is no demonstrated renal mass or cyst. There is no left hydronephrosis. Aorta: Normal proximal aorta. Mid and distal aorta are obscured by bowel gas. I.V.C.: The IVC is patent. There is no ascites. Trace right pleural effusion. US/Abdomen Complete IMPRESSION: Normal liver. [place] distended gallbladder with wall thickening, multiple stones and substantial sludge. Nondistended common bile duct. Nonvisualized pancreas secondary to bowel gas. Normal spleen and kidneys. Normal proximal aorta. Mid and distal aorta are obscured by bowel gas. Patent inferior vena cava. Negative for ascites. Trace right pleural effusion. Electronically Signed: Trupti Pastrana MD at 20:05 EST , Service support ,
--- NOTE | 2020-12-08 18:45 | CT_ITS ---
STUDY: CT CHEST WITHOUT CONTRAST REASON FOR EXAM: Male, 65 years old. SOB. Hx of diabetes, TIA, HLD and defibrillator RADIATION DOSAGE (If Supplied By Facility): CTDIvol = ( 15.53 ) mGy, DLP = ( 543.17 ) mGycm TECHNIQUE: Transaxial imaging was performed without the administration of intravenous contrast material. Multiplanar coronal and sagittal images were reformatted. Individualized dose optimization techniques were used for this CT. COMPARISON: Prior chest radiograph of 12/08/2020. Prior PET CT of 02/01/[address] 03/12/2013 FINDINGS: Bilateral small dependent pleural effusions. 1 discrete linear area of atelectasis or scarring in the lingula. Diffuse broad mild to moderate infiltrate in the posterior left lower lobe. Calcified granuloma of the left lower lobe. Mild cardiomegaly. Negative for pericardial effusion. Extensive coronary calcifications status post prior midline sternotomy. Right ventricular defibrillator lead in good position. Shotty subcentimeter lymph nodes of the mediastinum and aortopulmonary window. One subcentimeter stable lymph nodes in the mediastinum adjacent to the ascending aorta not changed from prior exam. Normal hilar regions. Normal unenhanced pulmonary arteries. Mild plaque and elongation of the thoracic aorta. There are multi-level degenerative changes of the thoracic spine. Calcified granuloma of the liver and spleen. Large volume gallbladder. Numerous tiny gallstones present. CT/Chest without Contrast IMPRESSION: Bilateral small dependent pleural effusions. One discrete area of linear scarring or atelectasis in the lingula. Diffuse broad mild to moderate pulmonary infiltrate in the posterior left lower lobe. Potential pneumonic process. Mild atelectatic changes at the right lung base. Mild cardiomegaly negative for pericardial effusion. Extensive coronary calcifications. Status post prior midline sternotomy. Mild atherosclerotic changes of the thoracic aorta. Right ventricular defibrillator lead in good position. Few shotty mediastinal and aortopulmonary window lymph nodes. Stable anterior mediastinal lymph node. Stigmata of old granulomatous disease with granuloma in the left lower lobe, liver and spleen. Cholelithiasis. Electronically Signed: Trupti Pastrana MD at 19:50 EST , Service support ,
[2020-12-08 18:57] VITALS: O2SAT 95
[2020-12-08 19:15] LABS: Magnesium 2.5 mg/dL (1.6-2.6)
[2020-12-08 20:00] VITALS: BP 122/87; PULSE 94; RESP 18; TEMP 36.8; O2SAT 97
[2020-12-08] MEDS: Furosemide 40 MG/4 ML Vial IV (20:10)
[2020-12-08 20:16] VITALS: BMI 29.4
[2020-12-08 20:27] VITALS: BMI 28.7
[2020-12-08] MEDS: Carvedilol 12.5 MG Tablet PO (21:52)
[2020-12-08] MEDS: Insulin Lispro 100 UNIT/ML INSULN.PEN SC (21:54)
[2020-12-08 22:00] VITALS: PULSE 90; RESP 16; O2SAT 96
[2020-12-08 22:01] LABS: Bedside Glucose 217 mg/dL (70-110)
[2020-12-09] VITALS (8 sets, daily range): BP systolic 109–113; BP diastolic 80; PULSE 82–90; RESP 15–18; TEMP 36.6–36.9; O2SAT 95–99
[2020-12-09 03:49] LABS: Absolute Lymphocyte Count 1.89 X10^3/uL (0.83-4.51); Absolute Neutrophil Count 4.2 X10^3/uL (2.0-7.7); Basophil# 0.05 X10^3/uL; Basophil% 0.7 % (0-1); Eosinophil# 0.24 X10^3/uL; Eosinophils% 3.4 % (0-5); Hematocrit 49.3 % (40-54); Hemoglobin 15.3 g/dL (13.0-16.5); Lymphocyte # 1.89 X10^3/ul (4.0); Lymphocyte % 26.7 % (19-41); Mean Corpuscular Hgb 29.7 pg (27.0-32.0); Mean Corpuscular Volume 95.5 fL (80-94); Mean Platelet Vol. 10.9 fl (6.2-12.0); Monocyte# 0.71 X10^3/uL; NRBC Flagged by Analyzer 0 % (0-5); Neutrophil # 4.18 X10^3/uL (2.7-7.7); Neutrophil % 58.9 % (47-70); Platelet Count 179 K/mm3 (150-450); RBC Distribution Width SD 45.5 fl (35.1-43.9); Red Blood Count 5.16 M/mm3 (4.6-6.2); White Blood Count 7.1 K/mm3 (4.4-11.0)
[2020-12-09 04:33] LABS: ALB/GLOB Ratio 0.8 RATIO (0.9-2.4); AST(SGOT) 31 U/L (15-37); Alanine Aminotransfer ALT/SGPT 20 U/L (16-61); Albumin, Serum 3.6 g/dL (3.2-5.0); Alkaline Phosphatase 54 U/L (45-117); Anion Gap 7 (5-15); BUN 42 mg/dL (7-18); BUN/Creat Ratio 21.1 RATIO (10-20); Chloride 103 mmol/L (98-107); Cholesterol 152 mg/dL (200); Creatinine, Serum 1.99 mg/dL (0.70-1.30); EST Glomerular Filtration Rate 36 mL/min (>60); Est Glom Filt Rate - Afr Amer 44 mL/min (>60); Estimated Creatinine Clearance 36.28 ml/min; Globulin 4.4 g/dL (2.2-4.2); Glucose 92 mg/dL (74-106); High Density Lipoprotein 32 mg/dL; Potassium 3.2 mmol/L (3.5-5.1); Sodium Level 136 mmol/L (136-145); Triglycerides 100 mg/dL; Very Low Density Lipoprotein 20 mg/dL (5-40)
--- NOTE | 2020-12-09 05:55 | EKG12_ITS ---
Test Reason : AM EKG Blood Pressure : / mmHG Vent. Rate : 079 BPM Atrial Rate : 079 BPM P-R Int : 174 ms QRS Dur : 134 ms QT Int : 450 ms P-R-T Axes : 051 -18 131 degrees QTc Int : 516 ms Normal sinus rhythm Non-specific intra-ventricular conduction block T wave abnormality, consider lateral ischemia Abnormal ECG Confirmed by TONYA JULIEN, COCO ([id number]), editorial writer ANAY TALBOT ([id number]) on 12/15/2020 9:50:07 AM Referred By: DR LINARES Confirmed By:COCO CASTANEDA MD
[2020-12-09 07:00] LABS: Bedside Glucose 98 mg/dL (70-110)
[2020-12-09] MEDS: Aspirin E.C. 81 MG Tablet PO (08:03)
[2020-12-09] MEDS: Furosemide 40 MG/4 ML Vial IV (09:39)
[2020-12-09] MEDS: Enoxaparin 40 MG/0.4 ML Syringe SC (09:39)
[2020-12-09] MEDS: Carvedilol 12.5 MG Tablet PO (09:40)
[2020-12-09] MEDS: 0.9% Saline Lock 10 ML Syringe IV (09:40)
[2020-12-09 11:05] LABS: Bedside Glucose 137 mg/dL (70-110)
--- NOTE | 2020-12-09 14:03 | PCM.DC ---
- Discharge Diagnoses Current Active Problems: Current Active and Chronic Problems (Last Reviewed 07/18/20 @ 14:[address] Seth Harris MD) Diabetes mellitus, type II (Chronic) History of TIA (transient ischemic attack) (Chronic) Chronic kidney disease, stage III (moderate) (Chronic) Atherosclerosis of coronary artery bypass graft without angina pectoris (Chronic) Ischemic cardiomyopathy (Chronic) History of implantable cardiac defibrillator (ICD) (Chronic 04/16/18) Acute on chronic combined systolic (congestive) and diastolic (congestive) heart failure (Acute) Essential (primary) hypertension (Chronic) Hyperlipidemia (Chronic) Large B-cell lymphoma (Chronic) You will use the following diet at home:: Calorie/Carbohydrate Controlled (specify 1200, 1400, etc) - 1800 ashleigh Your food should be the consistency of: Regular Your liquids should be the consistency of: Regular/Thin Discharge Activity: Return to Normal Activity Weight Bearing Status: Full weight bearing Additional Instructions: Get BMP drawn next Friday Allergies/Adverse Reactions: Allergies pregabalin [From Lyrica] Allergy (Verified 12/08/20 13:43) PT UNSURE OF REACTION Medications to take at Discharge Aspirin [Adult Low Dose Aspirin EC] 81 mg PO DAILY 11/28/16 Insulin Aspart [Novolog Flexpen] 3 - 20 units SQ 4X/DAY 11/28/16 Insulin Glargine,Hum.rec.anlog [Basaglar Kwikpen U-100] 33 unit SQ QHS 06/04/19 carvedilol 12.5 mg tablet 12.5 mg PO BID #180 tab 05/23/20 Nortriptyline HCl [Pamelor] 25 mg PO DAILY 05/30/20 Liraglutide [Victoza] 1.8 mg SQ DAILY 10/04/20 Furosemide 40 mg PO BID #60 tab 12/09/20 Spironolactone [Aldactone] 25 mg PO DAILY #30 tab 12/09/20 The following prescriptions were given: Spironolactone [Aldactone] 25 mg PO DAILY #30 tab Transmission Status: Pending to [id number] Furosemide 40 mg PO BID #60 tab Transmission Status: Pending to [facility] Primary Care Physician: [place] NP, OUTPATIENT CLERK-C [Primary Care Provider] - Test Results: Test results from this visit will be discussed in further detail at your follow-up appointment, if applicable. Please Follow Up With: Seth Harris MD When: in the next 2 weeks-call for appointment
--- NOTE | 2020-12-10 09:02 | DS.PCM_ITS ---
Discharge Date and Diagnosis - Problem List Patient Problems: Active and Suspected Problems (Last Reviewed 07/18/20 @ 14:[address] Seth Harris MD) Acute on chronic combined systolic (congestive) and diastolic (congestive) heart failure (Acute) Date of Admission: 12/08/20 Date of Discharge: 12/09/20 - Primary Discharge Diagnosis Acute Problems: Active Problems (Last Reviewed 07/18/20 @ 14:[address] Seth Harris MD) #1 acute on chronic combined systolic (congestive) and diastolic (congestive) heart failure (Acute) #2 ischemic cardiomyopathy #3 coronary artery disease #4 chronic kidney disease stage III secondary to type 2 diabetes #5 type 2 diabetes - Secondary Discharge Diagnosis Chronic Problems: Chronic Problems (Last Reviewed 07/18/20 @ 14:[address] Seth Harris MD) Diabetes mellitus, type II (Chronic) History of TIA (transient ischemic attack) (Chronic) Chronic kidney disease, stage III (moderate) (Chronic) Atherosclerosis of coronary artery bypass graft without angina pectoris (Chronic) Old inferior wall myocardial infarction (Chronic) 09/2017 inf/apical Ischemic cardiomyopathy (Chronic) History of implantable cardiac defibrillator (ICD) (Chronic 04/16/18) Non-rheumatic tricuspid valve insufficiency (Chronic) Secondary pulmonary arterial hypertension (Chronic) Essential (primary) hypertension (Chronic) Hyperlipidemia (Chronic) Large B-cell lymphoma (Chronic) Hospital Course and Treatment Operations: None Procedures: 2-D Echocardiogram Summary of Care Provided: The patient is a 65 year old M emergency room at [facility] with a chief complaint of shortness of breath which had been getting worse over the last several days. Patient has a history of ischemic cardiomyopathy and has a reduced ejection fraction on his last echocardiogram. Work-up in the emergency room included a chest x-ray which showed congestive changes, patient's beta natruretic peptide was elevated, creatinine was elevated, and patient was not hypoxic on room air. Patient was placed in observation status on PCU and placed on IV Lasix, he underwent an echocardiogram which showed a reduced ejection fraction of 20%. Patient's dyspnea improved during his hospitalization. On 12/09/2020, patient was seen and examined: On examination he appeared in good health and spirits. Vital signs as documented. Skin warm and dry and without overt rashes. Neck without JVD, neck was supple, trachea midline, thyroid was normal. Lungs clear bilaterally, normal air movement was noted. Heart exam notable for regular rhythm, normal sounds and absence of murmurs, rubs or gallops. Abdomen unremarkable and without evidence of organomegaly, masses, or abdominal aortic enlargement. Bowel sounds are present, abdomen is not distended. Extremities nonedematous, no cyanosis was noted, no clubbing was noted. Neuro: Cranial nerves II through XII are grossly intact, no focal motor deficits were noted, sensation to light touch and pinprick intact, motor exam 5/5 throughout. Psych: Patient is alert and oriented x3, he does not appear anxious or depressed, he does not appear agitated. Patient was discharged home in stable condition on 12/09/2020, patient's Lasix dosage was increased at home and he was placed on Aldactone. I did not place the patient on an MANUELA inhibitor due to his chronic kidney disease and systolic blood pressure. Patient Problems: Active and Suspected Problems (Last Reviewed 07/18/20 @ 14:[address] Seth Harris MD) Acute on chronic combined systolic (congestive) and diastolic (congestive) heart failure (Acute) - Physical Exam Vitals/I&O's: Vital Signs Temp Pulse Resp BP Pulse Ox 97.8 F 83 18 113/80 99 12/09/20 08:30 12/09/20 08:30 12/09/20 08:30 12/09/20 08:30 12/09/20 08:30 Oxygen Delivery Method Room Air Weight: 83.9 kg Body Mass Index (BMI) 28.7 Intake and Output for Last 24 Hours 12/08/20 12/09/20 12/10/20 23:59 23:59 23:59 Intake Total 1060 / 1060 Output Total 2625 / 2625 Balance -1565 / -1565 Microbiology Past 72 Hours 12/08/20 14:39 Mucosa - Nose SARS-CoV-2 Antigen (Rapid) - Final Laboratory Results 12/09/20 11:00: POC Glucose 137 H Discharge Activity: Return to Normal Activity Weight Bearing Status: Full weight bearing Home Medications: Medications to take at Discharge Aspirin [Adult Low Dose Aspirin EC] 81 mg PO DAILY 11/28/16 Insulin Aspart [Novolog Flexpen] 3 - 20 units SQ 4X/DAY 11/28/16 Insulin Glargine,Hum.rec.anlog [Basaglar Kwikpen U-100] 33 unit SQ QHS 06/04/19 carvedilol 12.5 mg tablet 12.5 mg PO BID #180 tab 05/23/20 Nortriptyline HCl [Pamelor] 25 mg PO DAILY 05/30/20 Liraglutide [Victoza] 1.8 mg SQ DAILY 10/04/20 Furosemide 40 mg PO BID #60 tab 12/09/20 Spironolactone [Aldactone] 25 mg PO DAILY #30 tab 12/09/20 Following Prescriptions Were Given to Patient: Spironolactone [Aldactone] 25 mg PO DAILY #30 tab Transmission Status: Received by [id number] Furosemide 40 mg PO BID #60 tab Transmission Status: Received by [id number] Primary Care Physician: [place] HIGH SCHOOL PHYSICAL EDUCATION TEACHER, HIGH SCHOOL PHYSICAL EDUCATION TEACHER-C [Primary Care Provider] - Please Follow Up With: Seth Harris MD When: in the next 2 weeks-call for appointment Disposition: Home Minutes spent on discharge:: 30 Patient Condition:: Stable Medical Necessity - Tobacco Use Smoking Status: Former smoker Tobacco Use: Cigars, Pipe Meaningful Use Info Meaningful Use Diagnoses (Choose all that apply): None applicable, CHF - CHF MANUELA/ARB ordered at discharge?: No Reason MANUELA/ARB not ordered?: Worsening renal disease Documented LVEF (%): 20 OBSV E&M: 16918 Observation care discharge
== END 2020-12-09 14:05 | disposition home or self-care (01) ==
LOC: ED 14:30 → PCU 17:40
PROVIDERS: Admitting Provider Family Medicine; Emergency Provider Emergency Medicine; PCP Nurse Practitioner Family; Visit Provider Internal Medicine
DX: I13.0 Hypertensive heart and chronic kidney disease with heart failure and stage 1 through stage 4 chronic kidney disease, or unspecified chronic kidney disease (principal); I50.43 Acute on chronic combined systolic (congestive) and diastolic (congestive) heart failure; I25.5 Ischemic cardiomyopathy; I25.10 Atherosclerotic heart disease of native coronary artery without angina pectoris; E11.22 Type 2 diabetes mellitus with diabetic chronic kidney disease; N18.30 Chronic kidney disease, stage 3 unspecified; E78.5 Hyperlipidemia, unspecified; C85.10 Unspecified B-cell lymphoma, unspecified site; I27.21 Secondary pulmonary arterial hypertension; Z95.810 Presence of automatic (implantable) cardiac defibrillator; Z79.4 Long term (current) use of insulin; Z79.899 Other long term (current) drug therapy; Z79.82 Long term (current) use of aspirin; Z86.73 Personal history of transient ischemic attack (TIA), and cerebral infarction without residual deficits; Z87.891 Personal history of nicotine dependence
CPT/HCPCS: 36415; 71045; 71250; 76700; 80048; 80053; 80061; 82962; 83735; 83880; 84484; 85025; 87426; 93005; 93306; 96372; 96374; 96376; 99218; 99251; 99285; Q9957; A4216; G0378; G0463; J1940

== ENCOUNTER 2021-03-07 09:28 | Observation (INO) | payer MEDICARE, MEDICAID, SELFPAY ==
[2020-12-29 08:35] VITALS: BMI 27.9
[2021-03-07] VITALS (10 sets, daily range): BP systolic 96–117; BP diastolic 54–87; PULSE 79–87; RESP 16–24; TEMP 35.4–36.6; O2SAT 94–98; BMI 28.8; BMI 28.0
--- NOTE | 2021-03-07 09:46 | EKG12_ITS ---
Test Reason : SOB Blood Pressure : / mmHG Vent. Rate : 083 BPM Atrial Rate : 083 BPM P-R Int : 200 ms QRS Dur : 108 ms QT Int : 418 ms P-R-T Axes : 040 -12 112 degrees QTc Int : 491 ms Sinus rhythm with occasional Premature ventricular complexes Incomplete left bundle branch block Abnormal ECG Confirmed by TONYA JULIEN, COCO ([id number]), newspaper photo editor LENA FREGOSO ([id number]) on 03/09/2021 11:31:10 AM Referred By: KAVYA Confirmed By:COCO CASTANEDA MD
--- NOTE | 2021-03-07 09:47 | ED.DCSUM_ITS ---
- ER Visit Summary Date of Service: 03/07/21 Chief Complaint: [Shortness of breath] History of Present Illness: The patient is a 65 M [presents to the emergency department complaint of shortness of breath started 2 to 3 days ago. Patient states that he is having hard time sleeping at night. Patient normally sleeps on his abdomen but has been waking up at times gasping for air. Patient complains of exertional dyspnea. Complains of dyspnea even at rest at times during the day. Patient's had similar symptoms in the past related to CHF. He denies recent travel or surgery. No history of PE or DVT. He denies weight gain or increased swelling in his legs. Patient has been compliant with his medications and states that he takes Lasix daily. Patient denies any chest pain. He denies fever or cough. Patient has history of coronary artery disease, CHF, hypertension, chronic kidney disease, and large B-cell lymphoma.] Physical Examination: [HEENT-PERRLA, EOMI. Cranial nerves II through XII grossly intact. TMs clear. Mucous membranes moist. No adenopathy. Cardiovascular-regular rate and rhythm without murmur or ectopy Lungs-clear to auscultation, chest wall stable without crepitus or subcu emphysema Abdomen-normoactive bowel sounds, soft, nontender, no rebound or rigidity, no peritoneal signs. Extremities-intact ?4, normal range of motion, normal pulses, atraumatic. Trace edema both lower extremities.] Test Results: [EKG obtained arrival shows sinus rhythm with a ventricular rate of [address] changes noted. CBC with differential showed a white count 10.2, hemoglobin 15.9, hematocrit 48, platelets 213. Chemistries unremarkable. BUN 53 and creatinine 2.82. Troponin less than 0.015. BNP was 1169. Chest x-ray 1 view obtained interpreted by myself as no acute disease process. Radiology thought patient had residual increased markings left lower lobe.] Emergency Department Course and Treatment: [IV line established on arrival. Patient placed on a groundwater monitoring technician. Patient was given Lasix 80 mg IV.] Treatment Plan: [Admit] Disposition: [Admit] Impression: [CHF exacerbation Dyspnea Acute kidney injury] This note was generated with [employer] dictation software. It may contain incorrect words, spelling, and punctuation that were not noted in review of the chart prior to signing ED Disposition - Plan for ED Patient: Referrals: [place] CYBER SYSTEMS ENGINEER, CYBER SYSTEMS ENGINEER-C [Primary Care Provider] -
[2021-03-07 10:11] LABS: Absolute Neutrophil Count 7.5 X10^3/uL (2.0-7.7); Basophil# 0.07 X10^3/uL; Basophil% 0.7 % (0-1); Eosinophil# 0.15 X10^3/uL; Eosinophils% 1.5 % (0-5); Hematocrit 48.3 % (40-54); Hemoglobin 15.9 g/dL (13.0-16.5); Lymphocyte % 12.8 % (19-41); Mean Corp Hgb Conc 32.9 g/dL (32-36); Mean Corpuscular Hgb 29.4 pg (27.0-32.0); Mean Corpuscular Volume 89.4 fL (80-94); Mean Platelet Vol. 11.1 fl (6.2-12.0); Monocyte% 10.8 % (0-10); NRBC Flagged by Analyzer 0 % (0-5); Neutrophil # 7.52 X10^3/uL (2.7-7.7); Neutrophil % 73.8 % (47-70); Platelet Count 213 K/mm3 (150-450); RBC Distribution Width CV 14.7 % (11.6-14.6); RBC Distribution Width SD 46.9 fl (35.1-43.9); White Blood Count 10.2 K/mm3 (4.4-11.0)
--- NOTE | 2021-03-07 10:15 | RAD_ITS ---
STUDY: X-RAY CHEST REASON FOR EXAM: Male, 65 years old. Dyspnea TECHNIQUE: Single AP portable view of the chest. COMPARISON: Comparison is made with prior study dated 12/08/2020. FINDINGS: EKG electrodes are seen. Minimal increased markings at the left lung base. These have improved as compared to prior study. There is no demonstrated pleural abnormality. Sternal cerclage wires and vascular clips are present from a prior sternotomy and coronary artery bypass graft procedure (CABG). A left-sided ICD is seen. Normal mediastinum and minna. Normal visualized pulmonary arteries. Normal visualized aortic arch and descending thoracic aorta. There are diffuse degenerative changes of the visualized thoracic spine. Normal visualized ribs, clavicles, and shoulders. There is no demonstrated abnormality of the visualized soft tissue structures of the upper abdomen. RAD/Chest 1 View (Portable) IMPRESSION: Mild residual increased markings at the left lung base this has improved. Electronically Signed: Luis Alvarez MD at 10:33 EDT , Service support ,
[2021-03-07 10:24] LABS: Anion Gap 7 (5-15); BUN 53 mg/dL (7-18); BUN/Creat Ratio 18.8 RATIO (10-20); Calcium,Total 9.6 mg/dL (8.5-10.1); Chloride 101 mmol/L (98-107); Creatinine, Serum 2.82 mg/dL (0.70-1.30); EST Glomerular Filtration Rate 24 mL/min (>60); Est Glom Filt Rate - Afr Amer 29 mL/min (>60); Glucose 108 mg/dL (74-106); Potassium 3.8 mmol/L (3.5-5.1); Sodium Level 134 mmol/L (136-145)
[2021-03-07 10:30] LABS: BNP,B-Type NATRIURETIC PEPTIDE 1169.2 pg/mL (0-100)
[2021-03-07] MEDS: Furosemide 100 MG/10 ML Vial 80 MG IV (11:12)
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
--- NOTE | 2021-03-07 12:05 | NURSING ---
Blood sugar is 88 at this time. PT is aware of fluid restriction order. Will continue to monitor.
[2021-03-07 12:26] LABS: Bedside Glucose 88 mg/dL (70-110)
[2021-03-07] MEDS: Heparin Injection (Vial) 5,000 UNIT/ML VIAL 5000 UNIT SC ×2 (13:47→20:45)
--- NOTE | 2021-03-07 14:55 | EKG12_ITS ---
Test Reason : Blood Pressure : / mmHG Vent. Rate : 086 BPM Atrial Rate : 086 BPM P-R Int : 180 ms QRS Dur : 114 ms QT Int : 416 ms P-R-T Axes : 040 -16 136 degrees QTc Int : 497 ms Normal sinus rhythm ST & T wave abnormality, consider lateral ischemia Poor R- wave progression Abnormal ECG Confirmed by TONYA JULIEN, COCO ([id number]), mapping editor ANAY TALBOT ([id number]) on 03/12/2021 8:57:27 AM Referred By: MADDISON PALACIO Confirmed By:COCO CASTANEDA MD
--- NOTE | 2021-03-07 15:07 | NURSING ---
this nurse is aware of recent troponin level resulted at 1327.
[2021-03-07 17:15] LABS: Bedside Glucose 182 mg/dL (70-110)
--- NOTE | 2021-03-07 17:24 | NURSING ---
Addendum entered by Staci Villavicencio 03/07/21 17:29: Dr. Price called this nurse back. Does not want lasix given tonight and ordered low dose sliding scale. Original Note: Paged Dr. Juan via Cortext to inform that Blood sugar is 182 and only coverage is lantus scheduled at bedtime. Awaiting to see if she wants any sliding scale with it. Also, pt took his own lasix 40mg po at home before coming into ED today. Pt also had 80mg lasix iv in ED. He is now scheduled for his 2nd dose of lasix 40mg po like he takes at home. This nurse asked Dr. Juan if this was okay.
[2021-03-07] MEDS: Insulin Lispro 100 UNIT/ML INSULN.PEN SC ×2 (18:12→20:44)
--- NOTE | 2021-03-07 20:48 | NURSING ---
Pt requesting meds to be given at this time so he can go to sleep.
[2021-03-07 21:40] LABS: Bedside Glucose 285 mg/dL (70-110)
[2021-03-07] MEDS: MELATONIN 3 MG TABLET PO (22:56)
[2021-03-08 03:00] VITALS: BP 100/71; PULSE 81; RESP 18; TEMP 36.6; O2SAT 94
[2021-03-08 03:02] VITALS: PULSE 78
[2021-03-08 06:27] LABS: Absolute Lymphocyte Count 1.61 X10^3/uL (0.83-4.51); Absolute Neutrophil Count 4.5 X10^3/uL (2.0-7.7); Basophil# 0.06 X10^3/uL; Basophil% 0.8 % (0-1); Eosinophil# 0.24 X10^3/uL; Eosinophils% 3.2 % (0-5); Hemoglobin 14.7 g/dL (13.0-16.5); Lymphocyte # 1.61 X10^3/ul (0.83-4.51); Lymphocyte % 21.4 % (19-41); Mean Corp Hgb Conc 33.4 g/dL (32-36); Mean Corpuscular Hgb 29.9 pg (27.0-32.0); Mean Corpuscular Volume 89.4 fL (80-94); Mean Platelet Vol. 10.7 fl (6.2-12.0); Monocyte# 1.05 X10^3/uL; Monocyte% 13.9 % (0-10); NRBC Flagged by Analyzer 0 % (0-5); Neutrophil # 4.54 X10^3/uL (2.7-7.7); Neutrophil % 60.3 % (47-70); Platelet Count 218 K/mm3 (150-450); RBC Distribution Width CV 14.9 % (11.6-14.6); RBC Distribution Width SD 47.8 fl (35.1-43.9); Red Blood Count 4.92 M/mm3 (4.6-6.2); White Blood Count 7.5 K/mm3 (4.4-11.0)
[2021-03-08] MEDS: Heparin Injection (Vial) 5,000 UNIT/ML VIAL 5000 UNIT SC (06:34)
[2021-03-08] MEDS: Insulin Lispro 100 UNIT/ML INSULN.PEN SC (06:34)
[2021-03-08 06:40] LABS: Bedside Glucose 151 mg/dL (70-110)
[2021-03-08 06:53] LABS: ALB/GLOB Ratio 0.9 RATIO (0.9-2.4); AST(SGOT) 114 U/L (15-37); Alanine Aminotransfer ALT/SGPT 94 U/L (16-61); Albumin, Serum 3.5 g/dL (3.2-5.0); Alkaline Phosphatase 46 U/L (45-117); Anion Gap 6 (5-15); BUN 54 mg/dL (7-18); BUN/Creat Ratio 19.1 RATIO (10-20); Calcium,Total 9.3 mg/dL (8.5-10.1); Chloride 100 mmol/L (98-107); Creatinine, Serum 2.82 mg/dL (0.70-1.30); EST Glomerular Filtration Rate 24 mL/min (>60); Est Glom Filt Rate - Afr Amer 29 mL/min (>60); Globulin 3.9 g/dL (2.2-4.2); Glucose 147 mg/dL (74-106); Potassium 3.6 mmol/L (3.5-5.1); Protein, Total 7.4 g/dL (6.4-8.2); Sodium Level 133 mmol/L (136-145)
[2021-03-08 07:00] VITALS: PULSE 80
[2021-03-08 08:56] VITALS: BP 104/70; PULSE 83; RESP 18; TEMP 36.4; O2SAT 98
[2021-03-08] MEDS: LINAGLIPTIN 5 MG TABLET PO (08:56)
[2021-03-08] MEDS: Aspirin E.C. 81 MG Tablet PO (08:57)
[2021-03-08] MEDS: Furosemide 40 MG/4 ML Vial IV (08:57)
[2021-03-08] MEDS: 0.9% Saline Lock 10 ML Syringe IV (08:57)
--- NOTE | 2021-03-08 09:35 | CASEMGMT ---
RN KARLA Face to Face with patient for initial transition planning/care coordination assessment. RN CM introduced self and role at [facility]. Patient lying in bed, alert and oriented. Patient willing to participate in assessment and is able to answer all questions appropriately. Care providers, pharmacy, and demographics verified. Patient wishes to discharge home, denies need for home health at this time. Patient states he has no further needs or concerns at this time. CM to follow for discharge planning needs that may arise. PCP: [facility] AUTOMOBILE CLUB TRAVEL COUNSELOR Specialists: was to follow with liquor tester but never did Preferred Pharmacy: [facility] Insurance: [facility] [facility] M[employer] Prescription Benefit: yes Living Will/HPOA: yes but not sure if it is brother or girlfriend LNOK: brother, girlfriend Living Arrangements: Patient lives with girlfriend in a mobile home with ramp to enter. Patient states he is independent at home. Transportation: self/brother DME/HHC: Patient denies DME at home. Patient has previously been to [facility]. States he has had HHC in past in 2013 but does not recall agency Disposition Plan: Patient to discharge home with family support and follow-up plans in place. Alexia MALCOLMN, RN, CM
--- NOTE | 2021-03-08 10:15 | PCM.DC ---
- Discharge Diagnoses Current Active Problems: Current Active and Chronic Problems (Last Reviewed 12/29/20 @ 11:[address] Seth Harris MD) History of implantable cardiac defibrillator (ICD) (Chronic 04/16/18) Essential (primary) hypertension (Chronic) Hyperlipidemia (Chronic) Chronic kidney disease, stage III (moderate) (Chronic) Reason(s) for Visit for Discharge Instructions: Acute CHF You will use the following diet at home:: Cardiac, Fluid restricted (specify 2000 mls, 1500 mls) - 1500 mls Your food should be the consistency of: Regular Your liquids should be the consistency of: Regular/Thin Discharge Activity: Return to Normal Activity Additional Instructions: Continue to take all your medications as prescribed. Continue on a low-fat low-salt diet. Restrict your total fluid intake to less than 1500 mils. Weigh yourself every day. Let your doctor know when you gain more than 4 pounds of weight. Follow-up with your primary care doctor in 1 to 2 weeks. Follow-up with the bulk plant manager and reinsurance claim analyst as scheduled. You would need repeat blood work to check on your kidney function within a week of discharge. Allergies/Adverse Reactions: Allergies pregabalin [From Lyrica] Allergy (Verified 03/07/21 09:29) PT UNSURE OF REACTION Medications to take at Discharge Aspirin [Adult Low Dose Aspirin EC] 81 mg PO DAILY 11/28/16 Insulin Aspart [Novolog Flexpen] 3 - 20 units SQ 4X/DAY 11/28/16 Insulin Glargine,Hum.rec.anlog [Basaglar Kwikpen U-100] 33 unit SQ QHS 06/04/19 carvedilol 12.5 mg tablet 12.5 mg PO BID #180 tab 05/23/20 Nortriptyline HCl [Pamelor] 25 mg PO DAILY 05/30/20 Liraglutide [Victoza] 1.8 mg SQ DAILY 10/04/20 spironolactone 25 mg tablet 25 mg PO DAILY #90 tab 12/29/20 Fenofibrate 160 mg PO DAILY 03/07/21 Linagliptin [Tradjenta] 1 tablet PO DAILY 03/07/21 Furosemide 80 mg PO DAILY 30 Days #60 tablet 03/08/21 Primary Care Physician: [facility] NP, ASSOCIATE PROFESSOR OF HISTORY-C [Primary Care Provider] - Please follow up with your Primary Care Physician in: within 1-2 weeks Test Results: Test results from this visit will be discussed in further detail at your follow-up appointment, if applicable. Please Follow Up With: Shannan Mcnulty MD When: in 1 week Please Follow Up With: Seth Harris MD When: as scheduled Proposed Discharge Date: 03/08/21
--- NOTE | 2021-03-08 10:17 | DS.PCM_ITS ---
Discharge Date and Diagnosis Date of Admission: 03/07/21 Date of Discharge: 03/08/21 - Primary Discharge Diagnosis Acute Problems: Acute on chronic combined CHF, EF 20%, status post AICD ALONSO on CKD stage III 80 - Secondary Discharge Diagnosis Chronic Problems: Chronic Problems (Last Reviewed 12/29/20 @ 11:[address] Seth Harris MD) Atherosclerosis of coronary artery bypass graft without angina pectoris (Chronic) Old inferior wall myocardial infarction (Chronic) 09/2017 inf/apical Ischemic cardiomyopathy (Chronic) History of implantable cardiac defibrillator (ICD) (Chronic 04/16/18) Chronic combined systolic and diastolic CHF (congestive heart failure) (Chronic) Non-rheumatic tricuspid valve insufficiency (Chronic) Secondary pulmonary arterial hypertension (Chronic) Essential (primary) hypertension (Chronic) Hyperlipidemia (Chronic) Large B-cell lymphoma (Chronic) History of TIA (transient ischemic attack) (Chronic) Chronic kidney disease, stage III (moderate) (Chronic) Hospital Course and Treatment Imaging Results: Clinical Impression(s) from Imaging Studies Chest X-Ray 03/07/21 10:15 IMPRESSION: Mild residual increased markings at the left lung base this has improved. Electronically Signed: Luis Alvarez MD at 10:33 EDT , Service support , Operations: None Procedures: None Summary of Care Provided: 5 year old M with PMHx of chronic systolic CHF, EF 20%, s/p AICD, CAD status post CABG comes in with progressive SOB, orthopnea and PND. He denies eating any salty dish or drinking excessive water. He has not had any change in his meds. He has been complaint with his Lasix. He denied chest pain, dizziness, palpitations. His admitting BNPep was 1169.2. Chest x-ray showed mild residual increased markings in the left lung base. He was admitted to the telemetry floor and managed as acute CHF exacerbation. He was managed on IV Lasix. He diuresed more than 2 L of urine. His creatinine was unchanged from previous. It was 2.82, previous creatinine in November was 1.99. Patient was due to follow-up with nephrology but never did. Outpatient appointment was set for nephrology within a week. Patient was asked to continue on Lasix 80 mg daily, continue with straight CHF protocol with daily weights, fluid restriction. Subjective: On the day of discharge, patient was seen and examined. Denied any new complaints. He feels improved. He has diuresed more than 2 L of urine. Objective: Physical exam: General: Alert, Oriented x3, Cooperative, No apparent distress, Well developed HEENT: Atraumatic Oral: Moist Mucosa Neck: Supple Lungs: Diminished, improved crackles Cardiovascular: HS I+II, regular, no murmurs Abdomen: Bowel Sounds Present, Soft, Non Tender Extremities: No edema Skin: No rashes, No breakdown Neurological: Grossly intact Psych/Mental Status: Appropriate - Physical Exam Vitals/I&O's: Vital Signs Temp Pulse Resp BP Pulse Ox 97.5 F L 83 18 104/70 98 03/08/21 08:56 03/08/21 08:56 03/08/21 08:56 03/08/21 08:56 03/08/21 08:56 Oxygen Delivery Method Room Air Weight: 84.3 kg Body Mass Index (BMI) 28.0 Intake and Output for Last 24 Hours 03/06/21 03/07/21 03/08/21 23:59 23:59 23:59 Intake Total 1450 / 1450 Output Total 2100 / 2100 Balance -650 / -650 Microbiology Past 72 Hours 03/07/21 09:55 Mucosa - Nose SARS-CoV-2 Antigen (Rapid) - Final Laboratory Results 03/07/21 09:50: Sodium 134 L, Potassium 3.8, Chloride 101, Carbon Dioxide 26.0, Anion Gap 7, BUN 53 H, Creatinine 2.82 H, Estim Creat Clear Calc 25.60, Est GFR (MDRD) Af Amer 29 L, Est GFR (MDRD) Non-Af 24 L, BUN/Creatinine Ratio 18.8, Glucose 108 H, Calcium 9.6, Troponin I < 0.015 03/07/21 09:50: B-Natriuretic Peptide 1169.2 H 03/07/21 12:04: POC Glucose 88 03/07/21 13:27: Troponin I < 0.015 03/07/21 16:12: Troponin I < 0.015 03/07/21 17:09: POC Glucose 182 H 03/07/21 20:42: POC Glucose 285 H 03/08/21 06:15: WBC 7.5, RBC 4.92, Hgb 14.7, Hct 44.0, MCV 89.4, MCH 29.9, MCHC 33.4, RDW Std Deviation 47.8 H, RDW Coeff of Kelsea 14.9 H, Plt Count 218, MPV 10 .7, Immature Gran % (Auto) 0.400, Neut % (Auto) 60.3, Lymph % (Auto) 21.4, Hettinger % (Auto) 13.9 H, Eos % (Auto) 3.2, Baso % (Auto) 0.8, Absolute Neuts (auto) 4.5, Absolute Lymphs (auto) 1.61, Nucleated RBC % 0 03/08/21 06:15: Sodium 133 L, Potassium 3.6, Chloride 100, Carbon Dioxide 27.0, Anion Gap 6, BUN 54 H, Creatinine 2.82 H, Estim Creat Clear Calc 25.60, Est GFR (MDRD) Af Amer 29 L, Est GFR (MDRD) Non-Af 24 L, BUN/Creatinine Ratio 19.1, Glucose 147 H, Calcium 9.3, Total Bilirubin 0.90, AST 114 H, ALT 94 H, Alkaline Phosphatase 46, Total Protein 7.4, Albumin 3.5, Globulin 3.9, Albumin/Globulin Ratio 0.9 03/08/21 06:33: POC Glucose 151 H Current Medications Acetaminophen (Acetaminophen 325 Mg Tablet) 650 mg PO Q6H PRN PRN PRN Reason: Pain Score 1-10/Temp > 100.7 F Al Hydroxide/Mg Hydroxide (Mag Hydrox/Al Hydrox/Simeth 30 Ml Udc) 30 ml PO Q6H PRN PRN PRN Reason: Gastric Burning Aspirin (Aspirin E.C. 81 Mg Tablet) 81 mg PO DAILYCM [facility] Last Admin: 03/08/21 08:57 Dose: 81 mg Documented by: Carvedilol (Carvedilol 12.5 Mg Tablet) 12.5 mg PO BID [facility] Last Admin: 03/08/21 08:57 Dose: Not Given Documented by: Furosemide (Furosemide 40 Mg/4 Ml Vial) 40 mg IV BID@0800,1800 [facility] Last Admin: 03/08/21 08:57 Dose: 40 mg Documented by: Heparin Sodium (Porcine) (Heparin Injection (Vial) 5,000 Unit/Ml Vial) 5,000 unit SC Q8 [facility] Last Admin: 03/08/21 06:34 Dose: 5,000 unit Documented by: Sodium Chloride () 250 mls @ 15 mls/hr IV .[id number] PRN PRN Reason: Saline Flush Sodium Chloride () 250 mls @ 15 mls/hr IV .[id number] PRN PRN Reason: Additional IVPB Infusion Insulin Glargine (Insulin Glargine 100 Units/Ml Pen) 33 units SC QHS [facility] Last Admin: 03/07/21 20:44 Dose: 33 units Documented by: Insulin Human Lispro (Insulin Lispro 100 Unit/Ml Insuln.Pen) 0 unit SC ACHS [facility]; Protocol Last Admin: 03/08/21 06:34 Dose: 1 units Documented by: Linagliptin (Linagliptin 5 Mg Tablet) 5 mg PO DAILY [facility] Last Admin: 03/08/21 08:56 Dose: 5 mg Documented by: Melatonin (Melatonin 3 Mg Tablet) 3 mg PO QHS [facility] Last Admin: 03/07/21 22:56 Dose: 3 mg Documented by: Ondansetron HCl (Ondansetron 4 Mg/2 Ml Vial) 4 mg IV Q8H PRN PRN PRN Reason: NAUSEA/VOMITING Sodium Chloride (0.9% Saline Lock 10 Ml Syringe) 10 - 40 ml IV UD PRN PRN Reason: SALINE FLUSH Last Admin: 03/08/21 08:57 Dose: 10 ml Documented by: Discharge Diet: Low fat/ Low Cholesterol, 6 Cup Fluid Restriction, 2000 mg Sodium Diet Discharge Activity: Return to Normal Activity Home Medications: Medications to take at Discharge Aspirin [Adult Low Dose Aspirin EC] 81 mg PO DAILY 11/28/16 Insulin Aspart [Novolog Flexpen] 3 - 20 units SQ 4X/DAY 11/28/16 Insulin Glargine,Hum.rec.anlog [Basaglar Kwikpen U-100] 33 unit SQ QHS 06/04/19 carvedilol 12.5 mg tablet 12.5 mg PO BID #180 tab 05/23/20 Nortriptyline HCl [Pamelor] 25 mg PO DAILY 05/30/20 Liraglutide [Victoza] 1.8 mg SQ DAILY 10/04/20 spironolactone 25 mg tablet 25 mg PO DAILY #90 tab 12/29/20 Fenofibrate 160 mg PO DAILY 03/07/21 Linagliptin [Tradjenta] 1 tablet PO DAILY 03/07/21 Furosemide 80 mg PO DAILY 30 Days #60 tablet 03/08/21 Primary Care Physician: [facility] AUTO GLASS WORKER, AUTO GLASS WORKER-C [Primary Care Provider] - Please follow up with your Primary Care Physician in: within 1-2 weeks Please Follow Up With: Shannan Mcnulty MD When: in 1 week Please Follow Up With: Seth Harris MD When: as scheduled Disposition: Home Minutes spent on discharge:: 40 Patient Condition:: Stable Medical Necessity - Tobacco Use Smoking Status: Former smoker Tobacco Use: Non-smoker Meaningful Use Info Meaningful Use Diagnoses (Choose all that apply): CHF - CHF MANUELA/ARB ordered at discharge?: No Reason MANUELA/ARB not ordered?: Worsening renal disease Documented LVEF (%): 20 Inpatient E&M: [id number] Disch Hosp
--- NOTE | 2021-03-08 10:36 | PHA.DC.MR ---
Pharmacy Service has performed discharge medication reconciliation for this patient. The patient's discharge medication list was reviewed for discrepancies and discrepancies were resolved. Home Medications Aspirin [Adult Low Dose Aspirin EC] 81 mg PO DAILY 11/28/16 Insulin Aspart [Novolog Flexpen] 3 - 20 units SQ 4X/DAY 11/28/16 Insulin Glargine,Hum.rec.anlog [Basaglar Kwikpen U-100] 33 unit SQ QHS 06/04/19 carvedilol 12.5 mg tablet 12.5 mg PO BID #180 tab 05/23/20 Nortriptyline HCl [Pamelor] 25 mg PO DAILY 05/30/20 Liraglutide [Victoza] 1.8 mg SQ DAILY 10/04/20 spironolactone 25 mg tablet 25 mg PO DAILY #90 tab 12/29/20 Fenofibrate 160 mg PO DAILY 03/07/21 Linagliptin [Tradjenta] 1 tablet PO DAILY 03/07/21 Furosemide 80 mg PO DAILY 30 Days #60 tablet 03/08/21
--- NOTE | 2021-03-09 10:52 | CASEMGMT ---
[facility] Discharge Follow-Up Phone Call. Teresita: Bud Strata: 3 Discharge Date: 03/08/21 Adm Dx: Acute CHF Call to pt to inquire about how he has been doing since being discharged from the hospital. Pt states, I'm doing alright. My breathing is doing better. I slept well last night for the first time in a long time. Pt denies having any questions about the discharge instructions or medications. He is aware of the appts scheduled w/Dr Mcnulty and Dr Harris. He states he just got a call from his PCP's office this AM and they want him to increase his Lantus to 35 U @ HS, up from 33 U that he was taking. He states he did not think about scheduling a f/u appt with MEDIA PRODUCER [facility], while he was on the phone with them, but he is aware he is to schedule an appt for 1-2 weeks and states he will call them back to schedule this. He denies any needs/concerns. 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 He confirms he is taking (2) 40 mg tablets daily to = 80 mg. Ole MALCOLMN [facility]
== END 2021-03-08 11:15 | disposition home or self-care (01) | DRG 291 ==
LOC: ED 11:02 → PCU 11:51
PROVIDERS: Admitting Provider Internal Medicine; Emergency Provider Emergency Medicine; PCP Nurse Practitioner Family; Visit Provider Internal Medicine
DX: I13.0 Hypertensive heart and chronic kidney disease with heart failure and stage 1 through stage 4 chronic kidney disease, or unspecified chronic kidney disease (principal); I50.43 Acute on chronic combined systolic (congestive) and diastolic (congestive) heart failure; N17.9 Acute kidney failure, unspecified; I25.810 Atherosclerosis of coronary artery bypass graft(s) without angina pectoris; E11.22 Type 2 diabetes mellitus with diabetic chronic kidney disease; N18.31 Chronic kidney disease, stage 3a; I25.5 Ischemic cardiomyopathy; I36.1 Nonrheumatic tricuspid (valve) insufficiency; I27.21 Secondary pulmonary arterial hypertension; I25.10 Atherosclerotic heart disease of native coronary artery without angina pectoris; E78.5 Hyperlipidemia, unspecified; Z20.822 Contact with and (suspected) exposure to COVID-19; Z79.4 Long term (current) use of insulin; Z79.899 Other long term (current) drug therapy; Z86.73 Personal history of transient ischemic attack (TIA), and cerebral infarction without residual deficits; Z87.891 Personal history of nicotine dependence; Z95.1 Presence of aortocoronary bypass graft; Z95.810 Presence of automatic (implantable) cardiac defibrillator
CPT/HCPCS: 36415; 71045; 80048; 80053; 82962; 83880; 84484; 85025; 87426; 93005; 96372; 96374; 96376; 97802; 99218; 99251; 99285; A4216; G0378; G0463; J1940

== ENCOUNTER → 2021-03-20 11:18 | Outpatient (CLI) | payer MEDICARE, MEDICAID, SELFPAY ==
[2021-03-07 11:45] VITALS: BMI 28.0
[2021-03-20 12:51] LABS: Protein:Creat Ratio 934 mg/g CRE (0-200)
== END ==
LOC: POLAB3 11:23 → LABSPEC 11:24
PROVIDERS: PCP Nurse Practitioner Family; Visit Provider Internal Medicine Nephrology
DX: E11.22 Type 2 diabetes mellitus with diabetic chronic kidney disease (principal); N18.9 Chronic kidney disease, unspecified; E11.40 Type 2 diabetes mellitus with diabetic neuropathy, unspecified
CPT/HCPCS: 82570; 84156

== ENCOUNTER 2021-04-17 05:05 | Emergency (ER) | payer MEDICARE, MEDICAID, SELFPAY ==
[2021-03-29 08:51] VITALS: BMI 28.0
[2021-04-17 05:06] VITALS: BP 104/81; PULSE 94; RESP 16; TEMP 36.2; O2SAT 100; BMI 27.9
--- NOTE | 2021-04-17 05:19 | ED.VIS.LOWEX ---
HPI History of Present Illness Chief Complaint: Lower Extremity Injury Detail of Chief Complaint: Pain to the right great toe that started this morning Informant: patient Onset/Context/Timing Current Severity: Moderate Maximum Severity: Severe Narrative Narrative: Patient presents with right great toe pain that started this morning. Patient states he has been dealing with similar pain off and on for the last 4 years. Patient attributes it to neuropathy related to his diabetes. Patient states that he used to be on gabapentin and that never really helped his pain. Normally he takes an Aleve and it tends to resolve the issue after about an hour but night it did not help him. Patient denies any trauma to his foot. He denies fever or recent illness. [facility] similar symptoms: [facility] Medical History (Updated 04/17/21 @ 05:[address] Terell Zaldivar, DO) Atherosclerosis of coronary artery bypass graft without angina pectoris Chronic combined systolic and diastolic CHF (congestive heart failure) Chronic kidney disease Chronic kidney disease, stage III (moderate) Chronic systolic (congestive) heart failure Essential (primary) hypertension History of TIA (transient ischemic attack) Hyperlipidemia Ischemic cardiomyopathy Large B-cell lymphoma Non-rheumatic tricuspid valve insufficiency Old inferior wall myocardial infarction Poor balance Secondary pulmonary arterial hypertension Type 2 diabetes mellitus Home Medications aspirin 81 mg PO DAILY 11/28/16 [History Last Taken 12/08/20] insulin aspart U-100 3 - 20 units SQ 4X/DAY 11/28/16 [History Last Taken 12/08/20] insulin glargine 33 unit SQ QHS 06/04/19 [History Last Taken 12/07/20] carvedilol 12.5 mg tablet 12.5 mg PO BID #180 tab 05/23/20 [Rx Last Taken 12/08/20] nortriptyline 25 mg PO DAILY 05/30/20 [History Last Taken 12/07/20] liraglutide 1.8 mg SQ DAILY 10/04/20 [History Last Taken 12/07/20] spironolactone 25 mg tablet 25 mg PO DAILY #90 tab 12/29/20 [Rx Last Taken Unknown] fenofibrate 160 mg PO DAILY 03/07/21 [History Last Taken Unknown] linagliptin 1 tablet PO DAILY 03/07/21 [History Last Taken Unknown] furosemide 40 mg tablet 80 mg PO DAILY tab 03/29/21 [History Last Taken Unknown] oxycodone-acetaminophen [Percocet] 1 tab PO Q6H PRN 3 Days #10 tab 04/17/21 [Rx Last Taken Unknown] Allergy/AdvReac Type Severity Reaction Status Date / Time pregabalin [From Lyrica] Allergy PT UNSURE Verified 03/29/21 08:46 OF REACTION Family History Father Myocardial infarction, Onset Age: 56 Diabetes Sudden cardiac Mother Diabetes Brother Diabetes HLD (hyperlipidemia) Sister Breast cancer Uncle Sudden cardiac Myocardial infarction Surgical History H/O coronary artery bypass surgery (03/19/13) History of implantable cardiac defibrillator (ICD) (04/16/18) Hx of appendectomy Hx of cataract surgery Social History (Updated 12/29/20 @ 11:[address] Seth Harris MD) Smoking Status: Former smoker how long ago did patient quit smokin alcohol intake: never substance use type: does not use caffeine: No what type of physical activity do you participate in: none seatbelt use: always do you feel safe at home: Yes ROS ROS ED Constitutional Constitutional ED: Reports systems reviewed and no addt'l complaints, except as documented; Denies body ache(s), change in weight or chills Eyes Eyes: Denies acute decrease in peripheral vision, change in vision, double vision or loss of vision ENT ENT ED: Reports none; Denies ear pain, lip swelling, loss taste/smell, neck pain, otalgia or sore throat Cardiovascular Cardiovascular: Reports none; Denies abdominal pain, chest pain with activity, leg edema, lightheadedness, palpitations, rapid heart rate or syncope Respiratory/Chest Respiratory/Chest: Reports none; Denies change in mental status, dry cough, dyspnea, hemoptysis, shortness of breath at rest or shortness of breath with exertion Gastrointestinal Gastrointestinal: Reports none; Denies abdominal pain, change in stool character, diarrhea, hematemesis, hematochezia, melena, rectal bleeding or vomiting Genitourinary Genitourinary ED: Reports none; Denies abdominal discomfort, anuria, dysuria, genital pain or polyuria Musculoskeletal Musculoskeletal: Reports none and other Details: Right great toe pain ; Denies arthralgias, back pain, difficulty walking, extremity pain, muscle weakness or myalgias Integumentary Reports none; Denies abscess or rash Neurologic Neurologic: Reports none; Denies abnormal gait, confusion, focal weakness, frequent falls, headache(s), loss of vision, numbness, paresthesias, radicular pain, vertigo or weakness Psychiatric Psychiatric: Reports systems reviewed and no addt'l complaints, except as documented and none; Denies behavioral changes, confusion, difficulty concentrating, hallucinations, suicidal ideation, tactile hallucinations or visual hallucinations Endocrine Endocrinology: Denies none, cold intolerance, excessive sweating, fatigue or heat intolerance Hematologic/Lymphatic Hematologic/Lymphatic: Reports none; Denies anemia, easy bleeding or easy bruising Allergic/Immunologic Allergic/Immunologic ED: Denies as per HPI, none, lip swelling, mouth swelling, throat swelling, tongue swelling or hives EXAM Physical Exam Const Vital Signs: 04/17/21 05:06 Temperature 97.1 F L Temperature Source Temporal Pulse Rate 94 Respiratory Rate 16 Blood Pressure 104/81 H Blood Pressure Mean 88 Pulse Ox 100 Oxygen Delivery Method Room Air Positive well nourished and well developed General Appearance ED: well developed and NAD HEENT Reports TM's clear and moist mucous membranes normocephalic and atraumatic; Negative for trauma or tenderness Tympanic Membrane ED: Yes TM's clear Eyes PERRL and EOMs intact bilaterally General Eye ED: Negative for pale conjunctiva or scleral icterus Neck no lymphadenopathy, supple and no JVD General: Negative for tenderness Chest Wall inspection of chest normal and palpation of chest normal Chest: Negative for tenderness Resp normal respiratory effort and clear to auscultation bilaterally Effort and Inspection: Negative for respiratory distress or pain with movement Auscultation: Negative for rhonchi, wheezes or diminished lung sounds Cardio regular rate, regular rhythm, S1 normal heart sound, S2 normal heart sound and no murmurs Peripheral Pulses: pulses 2+ throughout GI normal to inspection, nondistended, normoactive bowel sounds, soft to palpation, non-tender, non-distended and no masses Back/Spine no CVA tenderness and no thoracic nor lumbar tenderness Extremity normal to inspection Extremity Narrative: Evaluation of the right great toe reveals no deformity. There is no erythema or swelling noted. He has normal range of motion. Really cannot palpate the toe and reproduce his pain. Patient has normal pulses and normal cap refill. No tenderness over the first MTP joint. No signs of gout. General Extremety ED: Negative for edema General Extremity: Negative for edema Neuro oriented x3, CN's II-XII intact bilaterally, no sensory deficits noted and gait normal Sensorium / Orientation: awake, alert, oriented to person, oriented to place and oriented to time Motor Exam: strength 5/5 throughout and strength abnormal Psych mental status grossly normal Skin no rashes or lesions noted and no wounds MDM MDM MDM Narrative Medical decision making narrative: Patient will be given a prescription for a few Percocet for pain. He is to follow-up with his primary care physician in 3 to 5 days. Discharge Plan Triage Chief Complaint: Lower Extremity Injury ED Provider: Terell Zaldivar Dx/Rx/DC Orders Clinical Impression: Great toe pain, Neuropathy Instructions: ED Neuropathy, Peripheral Prescriptions: New oxycodone-acetaminophen [Percocet] 5-325 mg tablet 1 tab PO Q6H PRN (Reason: pain) 3 Days Qty: 10 RF: 0 No Action furosemide 40 mg tablet 80 mg PO DAILY RF: 0 spironolactone 25 mg tablet 25 mg PO DAILY Qty: 90 RF: 3 aspirin 81 MG tablet,delayed release (DR/EC) 81 mg PO DAILY RF: 0 insulin aspart U-100 100 UNITS/ML insulin pen 3 - 20 units SQ 4X/DAY RF: 0 insulin glargine 100 UNIT/ML insulin pen 33 unit SQ QHS RF: 0 nortriptyline 25 MG capsule 25 mg PO DAILY RF: 0 liraglutide 0.6 MG/0.1 ML pen injector 1.8 mg SQ DAILY RF: 0 fenofibrate 160 MG tablet 160 mg PO DAILY RF: 0 linagliptin 5 MG tablet 1 tablet PO DAILY RF: 0 carvedilol [Coreg] 12.5 mg tablet 12.5 mg PO BID Qty: 180 RF: 6 Primary Care Provider: Litlte Horn NP Referrals: Little Horn NP, [employer] [facility] [Primary Care Provider] - 3-5 Days Disposition Disposition: Home, self care
== END 2021-04-17 05:54 | disposition home or self-care (01) ==
LOC: ED 05:27
PROVIDERS: Emergency Provider Emergency Medicine; PCP Nurse Practitioner Family
DX: E11.42 Type 2 diabetes mellitus with diabetic polyneuropathy (principal); M79.674 Pain in right toe(s); E11.22 Type 2 diabetes mellitus with diabetic chronic kidney disease; I13.0 Hypertensive heart and chronic kidney disease with heart failure and stage 1 through stage 4 chronic kidney disease, or unspecified chronic kidney disease; I50.42 Chronic combined systolic (congestive) and diastolic (congestive) heart failure; N18.30 Chronic kidney disease, stage 3 unspecified; I25.810 Atherosclerosis of coronary artery bypass graft(s) without angina pectoris; I27.21 Secondary pulmonary arterial hypertension; I25.5 Ischemic cardiomyopathy; E78.5 Hyperlipidemia, unspecified; Z79.82 Long term (current) use of aspirin; Z79.4 Long term (current) use of insulin; Z79.899 Other long term (current) drug therapy; I25.2 Old myocardial infarction; Z87.891 Personal history of nicotine dependence; Z85.72 Personal history of non-Hodgkin lymphomas; Z86.73 Personal history of transient ischemic attack (TIA), and cerebral infarction without residual deficits
CPT/HCPCS: 99282

== ENCOUNTER → 2021-04-19 09:35 | Outpatient (CLI) | payer MEDICARE, MEDICAID, SELFPAY ==
[2021-04-17 05:06] VITALS: BMI 27.9
[2021-04-19 12:36] LABS: Hematocrit 47.1 % (40-54); Hemoglobin 15.3 g/dL (13.0-16.5); Mean Corp Hgb Conc 32.5 g/dL (32-36); Mean Corpuscular Hgb 30.4 pg (27.0-32.0); Mean Corpuscular Volume 93.5 fL (80-94); Mean Platelet Vol. 12.1 fl (6.2-12.0); Platelet Count 213 K/mm3 (150-450); RBC Distribution Width CV 14.9 % (11.6-14.6); Red Blood Count 5.04 M/mm3 (4.6-6.2); White Blood Count 9.3 K/mm3 (4.4-11.0)
[2021-04-19 12:54] LABS: Albumin, Serum 3.6 g/dL (3.2-5.0); BUN 49 mg/dL (7-18); Calcium,Total 9.4 mg/dL (8.5-10.1); Chloride 96 mmol/L (98-107); Creatinine, Serum 2.58 mg/dL (0.70-1.30); EST Glomerular Filtration Rate 27 mL/min (>60); Est Glom Filt Rate - Afr Amer 32 mL/min (>60); Glucose 277 mg/dL (74-106); Phosphorus 4.3 mg/dL (2.5-4.9); Potassium 4.5 mmol/L (3.5-5.1); Sodium Level 133 mmol/L (136-145)
== END ==
PROVIDERS: PCP Nurse Practitioner Family; Visit Provider Internal Medicine Nephrology
DX: N18.4 Chronic kidney disease, stage 4 (severe) (principal); D63.1 Anemia in chronic kidney disease
CPT/HCPCS: 36415; 80069; 85027

== ENCOUNTER → 2021-05-24 12:06 | Outpatient (CLI) | payer MEDICARE, MEDICAID, SELFPAY ==
[2021-05-24 13:33] LABS: Hematocrit 44.1 % (40-54); Hemoglobin 14.9 g/dL (13.0-16.5); Mean Corp Hgb Conc 33.8 g/dL (32-36); Mean Corpuscular Volume 88.9 fL (80-94); Mean Platelet Vol. 10.9 fl (6.2-12.0); Platelet Count 206 K/mm3 (150-450); RBC Distribution Width CV 13.5 % (11.6-14.6); RBC Distribution Width SD 43.8 fl (35.1-43.9); Red Blood Count 4.96 M/mm3 (4.6-6.2); White Blood Count 7.7 K/mm3 (4.4-11.0)
[2021-05-24 13:53] LABS: PTHIN 138.1 pg/mL (18.4-80.1)
[2021-05-24 13:59] LABS: Albumin, Serum 3.7 g/dL (3.2-5.0); BUN 36 mg/dL (7-18); BUN/Creat Ratio 17.1 RATIO (10-20); Calcium,Total 9.2 mg/dL (8.5-10.1); Chloride 98 mmol/L (98-107); EST Glomerular Filtration Rate 34 mL/min (>60); Est Glom Filt Rate - Afr Amer 41 mL/min (>60); Ferritin 186 ng/mL (26-388); Glucose 352 mg/dL (74-106); Iron 65 ug/dL (65-175); Iron Binding Capacity,Total 347 ug/dL (250-450); Phosphorus 2.9 mg/dL (2.5-4.9); Potassium 3.7 mmol/L (3.5-5.1); Sodium Level 133 mmol/L (136-145)
== END ==
PROVIDERS: PCP Nurse Practitioner Family; Referring Provider Internal Medicine Nephrology; Visit Provider Internal Medicine Nephrology
DX: N18.4 Chronic kidney disease, stage 4 (severe) (principal); D63.8 Anemia in other chronic diseases classified elsewhere
CPT/HCPCS: 36415; 80069; 82728; 83540; 83550; 83970; 85027

== ENCOUNTER 2021-05-28 12:25 | Emergency (ER) | payer MEDICARE, MEDICAID, SELFPAY ==
[2021-05-28 12:26] VITALS: BP 99/74; PULSE 74; RESP 26; TEMP 37; O2SAT 99; BMI 25.8
--- NOTE | 2021-05-28 12:43 | RAD_ITS ---
STUDY: X-RAY CHEST REASON FOR EXAM: Male, 65 years old. Chest pain TECHNIQUE: Frontal view of the chest COMPARISON: 03/07/21 FINDINGS: The lungs are clear. There are no pleural effusions. There is no pneumothorax. The heart is stable in size. Again noted are sternotomy wires and a pacemaker. The visualized osseous structures are within normal limits. RAD/Chest 1 View (Portable) IMPRESSION: No acute thoracic pathology. Electronically Signed: Jean Gandhi MD at 13:47 EDT Tel , Service support ,
--- NOTE | 2021-05-28 12:43 | EKG12_ITS ---
Test Reason : SOB Blood Pressure : / mmHG Vent. Rate : 095 BPM Atrial Rate : 095 BPM P-R Int : 172 ms QRS Dur : 110 ms QT Int : 392 ms P-R-T Axes : 054 -05 137 degrees QTc Int : 492 ms Normal sinus rhythm Possible Inferior infarct , age undetermined ST & T wave abnormality, consider lateral ischemia Abnormal ECG Confirmed by TONYA JULIEN, COCO ([id number]), development editor ANAY TALBOT ([id number]) on 05/30/2021 1:54:24 PM Referred By: MICHELINE Confirmed By:COCO CASTANEDA MD
--- NOTE | 2021-05-28 12:53 | EDS_ITS ---
HPI History of Present Illness Chief Complaint: Shortness of Breath Narrative Narrative: 65-year-old male with history of CHF, CABG, hypertension, CKD presenting with dyspnea. Patient states that he has not had any anterior chest pain but states he has been noting upper back pain for about a week. He states this comes and goes. He states he does not get diaphoretic or near syncopal when this occurs. Patient states that yesterday he had nausea, vomiting, diarrhea and today he states those symptoms have improved although he feels like he is short of breath. He is describing orthopnea. He states he has not been vaccinated for COVID-19. He does not know if he is coming contact with anybody that is ill. He denies fever or chills. He denies change in taste or smell. [facility] Medical History Atherosclerosis of coronary artery bypass graft without angina pectoris Chronic combined systolic and diastolic CHF (congestive heart failure) Chronic kidney disease Chronic kidney disease, stage III (moderate) Chronic systolic (congestive) heart failure Essential (primary) hypertension History of TIA (transient ischemic attack) Hyperlipidemia Ischemic cardiomyopathy Large B-cell lymphoma Non-rheumatic tricuspid valve insufficiency Old inferior wall myocardial infarction Poor balance Secondary pulmonary arterial hypertension Type 2 diabetes mellitus Home Medications aspirin 81 mg PO DAILY 11/28/16 [History Last Taken 12/08/20] insulin aspart U-100 3 - 20 units SQ 4X/DAY 11/28/16 [History Last Taken 12/08/20] insulin glargine 33 unit SQ QHS 06/04/19 [History Last Taken 12/07/20] carvedilol 12.5 mg tablet 12.5 mg PO BID #180 tab 05/23/20 [Rx Last Taken 12/08/20] nortriptyline 25 mg PO DAILY 05/30/20 [History Last Taken 12/07/20] liraglutide 1.8 mg SQ DAILY 10/04/20 [History Last Taken 12/07/20] spironolactone 25 mg tablet 25 mg PO DAILY #90 tab 12/29/20 [Rx Last Taken Unknown] fenofibrate 160 mg PO DAILY 03/07/21 [History Last Taken Unknown] linagliptin 1 tablet PO DAILY 03/07/21 [History Last Taken Unknown] furosemide 40 mg tablet 80 mg PO DAILY tab 03/29/21 [History Last Taken Unknown] oxycodone-acetaminophen [Percocet] 1 tab PO Q6H PRN 3 Days #10 tab 04/17/21 [Rx Last Taken Unknown] Allergy/AdvReac Type Severity Reaction Status Date / Time pregabalin [From Lyrica] Allergy PT UNSURE Verified 05/28/21 12:29 OF REACTION Family History Father Myocardial infarction, Onset Age: 56 Diabetes Sudden cardiac Mother Diabetes Brother Diabetes HLD (hyperlipidemia) Sister Breast cancer Uncle Sudden cardiac Myocardial infarction Surgical History H/O coronary artery bypass surgery (03/19/13) History of implantable cardiac defibrillator (ICD) (04/16/18) Hx of appendectomy Hx of cataract surgery Social History Smoking Status: Former smoker how long ago did patient quit smokin alcohol intake: never substance use type: does not use caffeine: No what type of physical activity do you participate in: none seatbelt use: always do you feel safe at home: Yes ROS ROS ED Constitutional Constitutional ED: Denies chills or fever(s) Eyes Eyes: Denies blurry vision or change in vision ENT ENT ED: Denies rhinorrhea or sore throat Cardiovascular Cardiovascular: Reports orthopnea and other Respiratory/Chest Respiratory/Chest: Reports dyspnea on exertion and orthopnea; Denies cough or dyspnea Gastrointestinal Gastrointestinal: Reports diarrhea, nausea and vomiting; Denies abdominal pain Genitourinary Genitourinary ED: Denies dysuria or hematuria Musculoskeletal Musculoskeletal: Reports back pain; Denies myalgias or neck pain Integumentary Denies abscess or rash Neurologic Neurologic: Denies headache(s), paresthesias or weakness Psychiatric Psychiatric: Denies anxiety or depression EXAM Physical Exam Const Vital Signs: 05/28/21 12:26 05/28/21 12:57 05/28/21 14:19 Temperature 98.6 F 98.6 F 98.3 F Temperature Source Temporal Temporal Temporal Pulse Rate 74 101 H 97 Respiratory Rate 26 H 19 H 22 H Respiratory Effort Short of Breath Labored Accessory Muscle Use Respiratory Depth Normal Respiratory Pattern Tachypnea Blood Pressure 99/74 91/75 92/75 Blood Pressure Mean 82 80 80 Pulse Ox 99 98 96 Oxygen Delivery Method Room Air Room Air Room Air Positive well nourished General Appearance ED: NAD HEENT Reports moist mucous membranes atraumatic Eyes PERRL and EOMs intact bilaterally Neck no lymphadenopathy and supple Resp normal respiratory effort and clear to auscultation bilaterally Cardio regular rate and regular rhythm GI non-tender and non-distended Palpation: soft Extremity normal to inspection General Extremety ED: Negative for edema or tenderness General Extremity: Negative for edema Neuro oriented x3 Sensorium / Orientation: alert Psych mental status grossly normal Thought Process: normal thought process Skin Lesions: no lesions Rashes: no rashes MDM MDM MDM Narrative Medical decision making narrative: 65-year-old male presenting for evaluation of dyspnea on exertion as well as orthopnea. Patient states he had nausea and vomiting yesterday this is resolved. Patient had EKG on arrival which is normal sinus rhythm at 95 bpm without any new significant changes from previous EKG 07 March 2021. Troponin is negative. H&H are stable. Renal function is at baseline. Chest x-ray is interpreted by myself shows no acute cardiopulmonary process, and the radiologist does agree. Patient's blood pressure is on the lower side however he is able to stand and he is walking around the room and does not appear to have any symptoms of it. Since his work-up was ultimately negative I feel the patient is safe to be discharged home to follow-up with cardiology. He was given return precautions. Impression: 1. Dyspnea on exertion 2. Orthopnea 3. History of CHF Lab Data Labs: Laboratory Results - last 24 hr 05/28/21 05/28/21 12:55 12:55 WBC 9.1 RBC 4.71 Hgb 14.3 Hct 42.6 MCV 90.4 MCH 30.4 MCHC 33.6 RDW Std Deviation 44.9 H RDW Coeff of Kelsea 13.6 Plt Count 211 MPV 10.3 Immature Gran % (Auto) 0.600 Neut % (Auto) 73.9 H Lymph % (Auto) 11.9 L [place] % (Auto) 11.5 H Eos % (Auto) 1.7 Baso % (Auto) 0.4 Absolute Neuts (auto) 6.7 Absolute Lymphs (auto) 1.08 Nucleated RBC % 0 Sodium 134 L Potassium 3.9 Chloride 101 Carbon Dioxide 25.0 Anion Gap 8 BUN 40 H Creatinine 2.15 H Estim Creat Clear Calc 33.58 Est GFR (MDRD) Af Amer 40 L Est GFR (MDRD) Non-Af 33 L BUN/Creatinine Ratio 18.6 Glucose 118 H Calcium 9.2 Troponin I High Sens 27.4 Radiography Diagnostic Testing: Radiology Impression Chest X-Ray 05/28/21 12:43 IMPRESSION: No acute thoracic pathology. Electronically Signed: Jean Gandhi MD at 13:47 EDT Tel , Service support , Discharge Plan Triage Chief Complaint: Shortness of Breath ED Provider: Sg Sterling Dx/Rx/DC Orders Instructions: ED Dyspnea Prescriptions: No Action furosemide 40 mg tablet 80 mg PO DAILY RF: 0 spironolactone 25 mg tablet 25 mg PO DAILY Qty: 90 RF: 3 aspirin 81 MG tablet,delayed release (DR/EC) 81 mg PO DAILY RF: 0 insulin aspart U-100 100 UNITS/ML insulin pen 3 - 20 units SQ 4X/DAY RF: 0 insulin glargine 100 UNIT/ML insulin pen 33 unit SQ QHS RF: 0 nortriptyline 25 MG capsule 25 mg PO DAILY RF: 0 liraglutide 0.6 MG/0.1 ML pen injector 1.8 mg SQ DAILY RF: 0 fenofibrate 160 MG tablet 160 mg PO DAILY RF: 0 linagliptin 5 MG tablet 1 tablet PO DAILY RF: 0 oxycodone-acetaminophen [Percocet] 5-325 mg tablet 1 tab PO Q6H PRN (Reason: pain) 3 Days Qty: 10 RF: 0 carvedilol [Coreg] 12.5 mg tablet 12.5 mg PO BID Qty: 180 RF: 6 Primary Care Provider: Little Horn NP Referrals: Seth Harris MD [STAFF PHYSICIAN] - As soon as possible Little Horn NP, MANAGER [employer] [Primary Care Provider] - Disposition Disposition: Home, Self Care Discharge Date/Time: 05/28/21 14:40
[2021-05-28 12:57] VITALS: BP 91/75; PULSE 101; RESP 19; TEMP 37; O2SAT 96; O2SAT 97; O2SAT 98
[2021-05-28 13:05] LABS: Absolute Lymphocyte Count 1.08 X10^3/uL (0.83-4.51); Absolute Neutrophil Count 6.7 X10^3/uL (2.0-7.7); Basophil# 0.04 X10^3/uL; Basophil% 0.4 % (0-1); Eosinophil# 0.15 X10^3/uL; Eosinophils% 1.7 % (0-5); Hematocrit 42.6 % (40-54); Hemoglobin 14.3 g/dL (13.0-16.5); Lymphocyte # 1.08 X10^3/ul (0.83-4.51); Lymphocyte % 11.9 % (19-41); Mean Corp Hgb Conc 33.6 g/dL (32-36); Mean Corpuscular Hgb 30.4 pg (27.0-32.0); Mean Corpuscular Volume 90.4 fL (80-94); Mean Platelet Vol. 10.3 fl (6.2-12.0); Monocyte# 1.04 X10^3/uL; Monocyte% 11.5 % (0-10); NRBC Flagged by Analyzer 0 % (0-5); Neutrophil % 73.9 % (47-70); Platelet Count 211 K/mm3 (150-450); RBC Distribution Width CV 13.6 % (11.6-14.6); RBC Distribution Width SD 44.9 fl (35.1-43.9); Red Blood Count 4.71 M/mm3 (4.6-6.2); White Blood Count 9.1 K/mm3 (4.4-11.0)
[2021-05-28 13:23] LABS: Anion Gap 8 (5-15); BUN 40 mg/dL (7-18); BUN/Creat Ratio 18.6 RATIO (10-20); Calcium,Total 9.2 mg/dL (8.5-10.1); Chloride 101 mmol/L (98-107); Creatinine, Serum 2.15 mg/dL (0.70-1.30); EST Glomerular Filtration Rate 33 mL/min (>60); Est Glom Filt Rate - Afr Amer 40 mL/min (>60); Estimated Creatinine Clearance 33.58 ml/min; Glucose 118 mg/dL (74-106); Potassium 3.9 mmol/L (3.5-5.1); Sodium Level 134 mmol/L (136-145); Troponin-I HS 27.4 pg/mL (3.0-78.5)
[2021-05-28 14:19] VITALS: BP 92/75; PULSE 97; RESP 22; TEMP 36.8; O2SAT 96
[2021-05-28 14:39] VITALS: BP 96/73; PULSE 97; RESP 28; O2SAT 98
== END 2021-05-28 14:40 | disposition home or self-care (01) ==
PROVIDERS: Emergency Provider Student in an Organized Health Care Education/Training Program; PCP Nurse Practitioner Family
DX: R06.09 Other forms of dyspnea (principal); I13.0 Hypertensive heart and chronic kidney disease with heart failure and stage 1 through stage 4 chronic kidney disease, or unspecified chronic kidney disease; I50.42 Chronic combined systolic (congestive) and diastolic (congestive) heart failure; E11.22 Type 2 diabetes mellitus with diabetic chronic kidney disease; N18.30 Chronic kidney disease, stage 3 unspecified; Z95.1 Presence of aortocoronary bypass graft; I25.810 Atherosclerosis of coronary artery bypass graft(s) without angina pectoris; Z86.73 Personal history of transient ischemic attack (TIA), and cerebral infarction without residual deficits; E78.5 Hyperlipidemia, unspecified; I25.5 Ischemic cardiomyopathy; I25.2 Old myocardial infarction; I27.21 Secondary pulmonary arterial hypertension; Z79.82 Long term (current) use of aspirin; Z79.4 Long term (current) use of insulin; Z79.899 Other long term (current) drug therapy; Z87.891 Personal history of nicotine dependence; Z95.810 Presence of automatic (implantable) cardiac defibrillator
CPT/HCPCS: 71045; 80048; 84484; 85025; 93005; 99284

== ENCOUNTER → 2021-06-01 10:24 | Outpatient (CLI) | payer MEDICARE, MEDICAID, SELFPAY ==
[2021-06-01 09:35] VITALS: BMI 27.3
[2021-06-01 12:16] LABS: BNP,B-Type NATRIURETIC PEPTIDE 1334.5 pg/mL (0-100)
== END ==
PROVIDERS: PCP Nurse Practitioner Family; Referring Provider Nurse Practitioner Family; Visit Provider Nurse Practitioner Family
DX: I50.42 Chronic combined systolic (congestive) and diastolic (congestive) heart failure (principal)
CPT/HCPCS: 36415; 83880

== ENCOUNTER → 2021-06-05 11:18 | Outpatient (CLI) | payer MEDICARE, MEDICAID, SELFPAY ==
[2021-06-01 09:35] VITALS: BMI 27.3
[2021-06-05 11:54] LABS: Anion Gap 4 (5-15); BUN 30 mg/dL (7-18); BUN/Creat Ratio 12.7 RATIO (10-20); Calcium,Total 9.1 mg/dL (8.5-10.1); Chloride 105 mmol/L (98-107); Creatinine, Serum 2.37 mg/dL (0.70-1.30); EST Glomerular Filtration Rate 30 mL/min (>60); Est Glom Filt Rate - Afr Amer 36 mL/min (>60); Glucose 82 mg/dL (74-106); Potassium 4.3 mmol/L (3.5-5.1); Sodium Level 135 mmol/L (136-145)
== END ==
PROVIDERS: PCP Nurse Practitioner Family; Referring Provider Nurse Practitioner Family; Visit Provider Nurse Practitioner Family
DX: I25.810 Atherosclerosis of coronary artery bypass graft(s) without angina pectoris (principal); I11.0 Hypertensive heart disease with heart failure; I50.42 Chronic combined systolic (congestive) and diastolic (congestive) heart failure; E78.5 Hyperlipidemia, unspecified; I25.5 Ischemic cardiomyopathy; Z95.1 Presence of aortocoronary bypass graft
CPT/HCPCS: 36415; 80048

== ENCOUNTER 2021-06-16 11:51 | Observation (INO) | payer MEDICARE, MEDICAID, SELFPAY ==
[2021-06-08 09:11] VITALS: BMI 27.3
[2021-06-16] VITALS (10 sets, daily range): BP systolic 102–124; BP diastolic 81–89; PULSE 98–108; RESP 16–26; TEMP 36.3–37.1; O2SAT 94–99; BMI 27.8; BMI 26.6
--- NOTE | 2021-06-16 12:19 | EKG12_ITS ---
Test Reason : SOB Blood Pressure : / mmHG Vent. Rate : 100 BPM Atrial Rate : 100 BPM P-R Int : 176 ms QRS Dur : 116 ms QT Int : 398 ms P-R-T Axes : 056 -16 129 degrees QTc Int : 513 ms Sinus rhythm with occasional Premature ventricular complexes Septal infarct , age undetermined Cannot rule out Inferior infarct , age undetermined ST & T wave abnormality, consider lateral ischemia Prolonged QT Abnormal ECG Confirmed by DELFINO JULIEN, HEIDI ([id number]), editor managing newspaper LENA FREGOSO ([id number]) on 06/19/2021 9:36:30 AM Referred By: PRETTY Confirmed By:HEIDI SALEH MD
--- NOTE | 2021-06-16 12:19 | RAD_ITS ---
STUDY: X-RAY CHEST REASON FOR EXAM: Male, 65 years old. Shortness of breath TECHNIQUE: Single AP portable view of the chest. COMPARISON: 05/28/2021. FINDINGS: Single chamber left-sided pacemaker is stable position. Mild stranding in the left lung base. Probable granuloma in the left lung base. Sternal cerclage wires and vascular clips are present from a prior sternotomy and coronary artery bypass graft procedure (CABG). Normal mediastinum and minna. Normal visualized pulmonary arteries. Normal visualized aortic arch and descending thoracic aorta. Stable osseous structures. There is no demonstrated abnormality of the visualized soft tissue structures of the upper abdomen. RAD/Chest 1 View (Portable) IMPRESSION: No active pulmonary disease. Electronically Signed: Sherman Flowers MD at 13:08 EDT Tel , Service support ,
[2021-06-16] MEDS: Furosemide 40 MG/4 ML Vial IV (12:46)
[2021-06-16 12:49] LABS: Absolute Lymphocyte Count 1.03 X10^3/uL (0.83-4.51); Basophil# 0.08 X10^3/uL; Eosinophil# 0.37 X10^3/uL; Eosinophils% 4.4 % (0-5); Hematocrit 46.9 % (40-54); Hemoglobin 15.1 g/dL (13.0-16.5); Lymphocyte # 1.03 X10^3/ul (0.83-4.51); Lymphocyte % 12.4 % (19-41); Mean Corp Hgb Conc 32.2 g/dL (32-36); Mean Corpuscular Volume 93.1 fL (80-94); Mean Platelet Vol. 11.5 fl (6.2-12.0); Monocyte# 0.83 X10^3/uL; NRBC Flagged by Analyzer 0 % (0-5); Neutrophil # 5.97 X10^3/uL (2.7-7.7); Neutrophil % 71.7 % (47-70); Platelet Count 242 K/mm3 (150-450); RBC Distribution Width CV 15.2 % (11.6-14.6); Red Blood Count 5.04 M/mm3 (4.6-6.2); White Blood Count 8.3 K/mm3 (4.4-11.0)
--- NOTE | 2021-06-16 13:00 | ED.VIS.DYS ---
HPI History of Present Illness Chief Complaint: Shortness of Breath Informant: patient Narrative Narrative: Patient presents with 3 to maybe 4 days of dyspnea. He is not have chest pain. He states if he lays flat he has markedly increased dyspnea. It is much better but still present if he sits up. He does not have any notable change in peripheral edema but normally does not. He has a history of CHF. He has no COPD and even though he is a prior smoker. He takes Lasix 40 mg 1 day alternating with 80. He has been trying 3 tablets. He is getting urine output a bit but his dyspnea is not markedly better. He has had echocardiograms in the past but does not think he has had one for a long time. He does have an ICD. He has a history of ischemic cardiomyopathy and had bypass grafts about 8 years ago. He also denies any actual coughing fevers chills or myalgias. He states he is short of breath and really no other symptoms. [facility] Medical History Atherosclerosis of coronary artery bypass graft without angina pectoris Chronic combined systolic and diastolic CHF (congestive heart failure) Chronic kidney disease Chronic systolic (congestive) heart failure Essential (primary) hypertension History of TIA (transient ischemic attack) Hyperlipidemia Ischemic cardiomyopathy Large B-cell lymphoma Neuropathy Non-rheumatic tricuspid valve insufficiency Old inferior wall myocardial infarction On potassium wasting diuretic therapy Poor balance Secondary pulmonary arterial hypertension Type 2 diabetes mellitus Home Medications aspirin 81 mg PO DAILY 11/28/16 [History Last Taken 12/08/20] insulin aspart U-100 3 - 20 units SQ 4X/DAY 11/28/16 [History Last Taken 12/08/20] insulin glargine 33 unit SQ QHS 06/04/19 [History Last Taken 12/07/20] carvedilol 12.5 mg tablet 12.5 mg PO BID #180 tab 05/23/20 [Rx Last Taken 12/08/20] nortriptyline 25 mg PO DAILY 05/30/20 [History Last Taken 12/07/20] spironolactone 25 mg tablet 25 mg PO DAILY #90 tab 12/29/20 [Rx Last Taken Unknown] liraglutide 0.6 mg/0.1 mL (18 mg/3 mL) subcutaneous pen injector 1.8 mg SUBCUT DAILY 06/01/21 [History Last Taken Unknown] furosemide 40 mg tablet 40 mg PO .COMPLEX tab 06/08/21 [History Last Taken Unknown] linagliptin 5 mg tablet 5 mg PO DAILY 06/08/21 [History Last Taken Unknown] Allergy/AdvReac Type Severity Reaction Status Date / Time pregabalin [From Lyrica] Allergy PT UNSURE Verified 06/16/21 11:51 OF REACTION Family History Father Myocardial infarction, Onset Age: 56 Diabetes Sudden cardiac Mother Diabetes Brother Diabetes HLD (hyperlipidemia) Sister Breast cancer Uncle Sudden cardiac Myocardial infarction Surgical History H/O coronary artery bypass surgery (03/19/13) History of implantable cardiac defibrillator (ICD) (04/16/18) Hx of appendectomy Hx of cataract surgery Social History Smoking Status: Former smoker how long ago did patient quit smokin alcohol intake: never substance use type: does not use caffeine: No what type of physical activity do you participate in: none seatbelt use: always do you feel safe at home: Yes ROS ROS ED Constitutional Constitutional ED: Denies chills or fever(s) Eyes Eyes: Denies blurry vision ENT ENT ED: Denies rhinorrhea or sore throat Cardiovascular Cardiovascular: Reports orthopnea and paroxysmal nocturnal dyspnea; Denies chest pain or palpitations Respiratory/Chest Respiratory/Chest: Reports dyspnea, dyspnea on exertion, orthopnea and paroxysmal nocturnal dyspnea; Denies cough or sputum Gastrointestinal Gastrointestinal: Denies abdominal pain, nausea or vomiting Genitourinary Genitourinary ED: Denies hematuria Musculoskeletal Musculoskeletal: Denies arthralgias or myalgias Integumentary Denies rash Neurologic Neurologic: Denies headache(s) Endocrine Endocrinology: Denies polydipsia or polyuria Hematologic/Lymphatic Hematologic/Lymphatic: Denies easy bleeding or easy bruising Allergic/Immunologic Allergic/Immunologic ED: Denies mouth swelling or tongue swelling EXAM Physical Exam Const Vital Signs: 06/16/21 11:51 06/16/21 12:01 06/16/21 12:59 Temperature 97.7 F L Temperature Source Temporal Pulse Rate 105 H 100 Respiratory Rate 22 H 26 H Respiratory Effort Short of Breath Labored Respiratory Depth Normal Respiratory Pattern Normal Blood Pressure 108/81 H 107/89 H Blood Pressure Mean 90 95 Pulse Ox 96 95 Oxygen Delivery Method Room Air Room Air Room Air 06/16/21 14:44 Temperature Temperature Source Pulse Rate 102 H Respiratory Rate 16 Respiratory Effort Respiratory Depth Respiratory Pattern Blood Pressure 102/83 H Blood Pressure Mean 89 Pulse Ox 96 Oxygen Delivery Method Room Air Positive well nourished and well developed Constitutional Narrative: Patient does look mildly dyspneic even sitting upright. General Appearance ED: well developed HEENT atraumatic; Negative for trauma or tenderness Eyes Negative for EOMs intact bilaterally Neck supple Neck Narrative: Possible mild JVD. Resp Resp Narrative: Patient does have slightly increased respiratory effort but he is able to carry on a conversation. His saturations sitting up or about 94%. He does have some mild basilar rales. I hear no wheeze at all. I hear no rhonchi. He is not coughing while I am in the room. There is no pain with a deep breath. Auscultation: rales Cardio regular rate, regular rhythm and no murmurs Cardio Narrative: Heart is regular. There is occasional PVC on the monitor. GI non-tender Palpation: soft Back/Spine no CVA tenderness and normal to inspection Extremity Extremity Narrative: Although his legs are thin he does have trace bilateral edema. No tenderness. Neuro oriented x3 Sensorium / Orientation: alert Psych mental status grossly normal Skin Rashes: no rashes MDM MDM MDM Narrative Medical decision making narrative: Patient gets very dyspneic laying flat. He also gets distant neck and somewhat lightheaded walking. He has an ejection fraction of 20% or left. They have been trying to manage this as an outpatient. He has slightly worsening creatinine. I think this patient may benefit from hospitalization so we can manage his fluid status, congestive heart failure, and renal function. Case was discussed with the hospitalist. Lab Data Labs: Laboratory Results - last 24 hr 06/16/21 06/16/21 06/16/21 12:03 12:03 12:03 WBC 8.3 RBC 5.04 Hgb 15.1 Hct 46.9 MCV 93.1 MCH 30.0 MCHC 32.2 RDW Std Deviation 52.0 H RDW Coeff of Kelsea 15.2 H Plt Count 242 MPV 11.5 Immature Gran % (Auto) 0.500 Neut % (Auto) 71.7 H Lymph % (Auto) 12.4 L [place] % (Auto) 10.0 Eos % (Auto) 4.4 Baso % (Auto) 1.0 Absolute Neuts (auto) 6.0 Absolute Lymphs (auto) 1.03 Nucleated RBC % 0 Sodium 132 L Potassium 5.1 Chloride 99 Carbon Dioxide 27.0 Anion Gap 6 BUN 40 H Creatinine 2.56 H Estim Creat Clear Calc 28.20 Est GFR (MDRD) Af Amer 33 L Est GFR (MDRD) Non-Af 27 L BUN/Creatinine Ratio 15.6 Glucose 248 H Calcium 9.6 Troponin I High Sens 28.3 B-Natriuretic Peptide 1199.8 H Radiography Diagnostic Testing: Radiology Impression Chest X-Ray 06/16/21 12:19 IMPRESSION: No active pulmonary disease. Electronically Signed: Sherman Flowers MD at 13:08 EDT Tel , Service support , Discharge Plan Dx/Rx/DC Orders Clinical Impression: Congestive heart failure, Orthopnea Disposition Disposition: Acute Care Hospital [facility] Discharge Date/Time: 06/16/21 16:31
[2021-06-16 13:05] LABS: Anion Gap 6 (5-15); BUN 40 mg/dL (7-18); BUN/Creat Ratio 15.6 RATIO (10-20); Calcium,Total 9.6 mg/dL (8.5-10.1); Chloride 99 mmol/L (98-107); Creatinine, Serum 2.56 mg/dL (0.70-1.30); EST Glomerular Filtration Rate 27 mL/min (>60); Est Glom Filt Rate - Afr Amer 33 mL/min (>60); Glucose 248 mg/dL (74-106); Potassium 5.1 mmol/L (3.5-5.1); Sodium Level 132 mmol/L (136-145); Troponin-I HS 28.3 pg/mL (3.0-78.5)
[2021-06-16 13:12] LABS: BNP,B-Type NATRIURETIC PEPTIDE 1199.8 pg/mL (0-100)
--- NOTE | 2021-06-16 15:48 | HP.PCM.HOS_ITS ---
HPI - General General Date of Admission: 06/16/21 Date of Service: 06/16/21 Chief Complaint: SOB - 3 days HPI Narrative SKYE GARCIA, is a 65 M who presents progressive shortness of breath at rest and with exertion as well as orthopnea and PND ongoing for 3 days. Patient has history of chronic systolic CHF, EF 20%, status post AICD. Patient stated that he has not been eating any salty food. He has been eating out once in a while. At one was at [facility] last week. He has been weighing himself and has not gained weight Review of chart however shows the patient's weight was 80.2 kg a week ago and today he is 82.9 kg. He admitted to some leg swelling. Denied any fever chills or chest pain. He has intermittent dizziness Vitals in the ED were unremarkable except for mild tachycardia. He was saturating well on 2 L of oxygen. His admitting BNpep was 1199.8. Chest x-ray however was unremarkable [facility] Medical History Atherosclerosis of coronary artery bypass graft without angina pectoris Chronic combined systolic and diastolic CHF (congestive heart failure) Chronic kidney disease Chronic systolic (congestive) heart failure Essential (primary) hypertension History of TIA (transient ischemic attack) Hyperlipidemia Ischemic cardiomyopathy Large B-cell lymphoma Neuropathy Non-rheumatic tricuspid valve insufficiency Old inferior wall myocardial infarction On potassium wasting diuretic therapy Poor balance Secondary pulmonary arterial hypertension Type 2 diabetes mellitus Home Medications aspirin 81 mg PO DAILY 11/28/16 [History Last Taken 12/08/20] insulin aspart U-100 3 - 20 units SQ 4X/DAY 11/28/16 [History Last Taken 12/08/20] insulin glargine 33 unit SQ QHS 06/04/19 [History Last Taken 12/07/20] carvedilol 12.5 mg tablet 12.5 mg PO BID #180 tab 05/23/20 [Rx Last Taken 12/08/20] nortriptyline 25 mg PO DAILY 05/30/20 [History Last Taken 12/07/20] spironolactone 25 mg tablet 25 mg PO DAILY #90 tab 12/29/20 [Rx Last Taken Unknown] liraglutide 0.6 mg/0.1 mL (18 mg/3 mL) subcutaneous pen injector 1.8 mg SUBCUT DAILY 06/01/21 [History Last Taken Unknown] furosemide 40 mg tablet 40 mg PO .COMPLEX tab 06/08/21 [History Last Taken Unknown] linagliptin 5 mg tablet 5 mg PO DAILY 06/08/21 [History Last Taken Unknown] Allergy/AdvReac Type Severity Reaction Status Date / Time pregabalin [From Lyrica] Allergy PT UNSURE Verified 06/16/21 11:51 OF REACTION Family History Father Myocardial infarction, Onset Age: 56 Diabetes Sudden cardiac Mother Diabetes Brother Diabetes HLD (hyperlipidemia) Sister Breast cancer Uncle Sudden cardiac Myocardial infarction Surgical History H/O coronary artery bypass surgery (03/19/13) History of implantable cardiac defibrillator (ICD) (04/16/18) Hx of appendectomy Hx of cataract surgery Social History Smoking Status: Former smoker how long ago did patient quit smokin alcohol intake: never substance use type: does not use caffeine: No what type of physical activity do you participate in: none seatbelt use: always do you feel safe at home: Yes ROS ROS Narrative Constitutional: Denies: Anorexia, Chills, Fever, Night Sweats, Weight Change Eyes: Denies: Blurred vision, Cataracts, Conjunctivae Inflammation, Pain, Redness, Vision Change HEENT: Denies: Difficulty Hearing, Difficulty Swallowing, Head Aches, Hearing Changes, Sinus Congestion, Sinus Drainage Cardiovascular: See H&P Respiratory: Admits to shortness of breath at rest and with exertion denies: Cough, Sputum production Gastrointestinal: Denies: Abdominal Pain, Nausea, Vomiting Genitourinary: Denies: Dysuria Musculoskeletal: Denies: Joint Pain, Joint stiffness, Joint swelling, Joint Tenderness Skin: Denies: Rash, Wounds Neurological: Denies: Numbness, Tingling, Focal weakness Vital Signs Vital Signs Vital Signs: 06/16/21 11:51 06/16/21 12:01 06/16/21 12:59 Temperature 97.7 F L Temperature Source Temporal Pulse Rate 105 H 100 Respiratory Rate 22 H 26 H Respiratory Effort Short of Breath Labored Respiratory Depth Normal Respiratory Pattern Normal Blood Pressure 108/81 H 107/89 H Blood Pressure Mean 90 95 Pulse Ox 96 95 Oxygen Delivery Method Room Air Room Air Room Air 06/16/21 14:44 Temperature Temperature Source Pulse Rate 102 H Respiratory Rate 16 Respiratory Effort Respiratory Depth Respiratory Pattern Blood Pressure 102/83 H Blood Pressure Mean 89 Pulse Ox 96 Oxygen Delivery Method Room Air Weight Weight: 82.9 kg Body Mass Index (BMI) 27.8 Physical Exam Narrative Physical exam: General: Alert, Oriented x3, Cooperative, No apparent distress, Well developed, on 2 L of oxygen HEENT: Atraumatic Oral: Moist Mucosa Neck: Supple Lungs: Diminished at the lung bases Cardiovascular: HS I+II, regular, no murmurs Abdomen: Bowel Sounds Present, Soft, Non Tender Extremities: Bilateral leg edema +1 Results Lab / Micro Data Result Diagrams: 06/16/21 12:03 06/16/21 12:03 Labs: Laboratory Results - last 24 hr 06/16/21 12:03: WBC 8.3, RBC 5.04, Hgb 15.1, Hct 46.9, MCV 93.1, MCH 30.0, MCHC 32.2, RDW Std Deviation 52.0 H, RDW Coeff of Kelsea 15.2 H, Plt Count 242, MPV 11.5, Immature Gran % (Auto) 0.500, Neut % (Auto) 71.7 H, Lymph % (Auto) 12.4 L, [place] % (Auto) 10.0, Eos % (Auto) 4.4, Baso % (Auto) 1.0, Absolute Neuts (auto) 6.0, Absolute Lymphs (auto) 1.03, Nucleated RBC % 0 06/16/21 12:03: Sodium 132 L, Potassium 5.1, Chloride 99, Carbon Dioxide 27.0, Anion Gap 6, BUN 40 H, Creatinine 2.56 H, Estim Creat Clear Calc 28.20, Est GFR (MDRD) Af Amer 33 L, Est GFR (MDRD) Non-Af 27 L, BUN/Creatinine Ratio 15.6, Glucose 248 H, Calcium 9.6, Troponin I High Sens 28.3 06/16/21 12:03: B-Natriuretic Peptide 1199.8 H Radiology Impression Chest X-Ray 06/16/21 12:19 IMPRESSION: No active pulmonary disease. Electronically Signed: Sherman Flowers MD at 13:08 EDT Tel , Service support , Assessment & Plan Assessment/Plan (1) Acute on chronic combined systolic and diastolic CHF (congestive heart failure): (2) Stage 3b chronic kidney disease: (3) Essential (primary) hypertension: (4) Hyperlipidemia: QUALIFIERS: Hyperlipidemia type: unspecified Qualified Code(s): E78.5 - Hyperlipidemia, unspecified (5) Large B-cell lymphoma: (6) History of TIA (transient ischemic attack): PLAN: 1. Acute on chronic combined CHF, EF 20%, status post AICD Likely cause of acute exacerbation is due to dietary indiscretion We will admit to PCU, IV lasix, strict I & Os, daily weight, fluid restriction, 2. CKD stage IIIb, creatinine is at baseline. Creatinine today is 2.56 We will continue to monitor 3. Hyponatremia, chronic, secondary to fluid overload state We will continue to monitor 4. I discussed and explained in details the various types of CODE STATUS-full code, DNR CCA, DNR CC. Patient chose DNR CCA, no intubation. He stated that his general health and heart condition is poor and does not want to be resuscitated Time spent discussing CODE STATUS 17 minutes Charges/Coding Visit Charges Inpatient E&M: 06426 Init Hosp L3 Procedures Hospitalists Procedures: 81553 Advncd Care Plan 30 Min
[2021-06-16 17:16] LABS: Bedside Glucose 157 mg/dL (70-110)
[2021-06-16] MEDS: Insulin Lispro 100 UNIT/ML INSULN.PEN SC ×2 (17:18→21:51)
[2021-06-16 17:25] LABS: Troponin-I HS 27.1 pg/mL (3.0-78.5)
[2021-06-16 21:13] LABS: Troponin-I HS 22.6 pg/mL (3.0-78.5)
[2021-06-16 21:51] LABS: Bedside Glucose 290 mg/dL (70-110)
[2021-06-16] MEDS: Heparin Injection (Vial) 5,000 UNIT/ML VIAL 5000 UNIT SC (21:51)
[2021-06-16] MEDS: Carvedilol 12.5 MG Tablet PO (21:51)
[2021-06-17 02:40] VITALS: BP 95/69; PULSE 92; RESP 18; TEMP 36.6; O2SAT 96
[2021-06-17 03:17] VITALS: PULSE 88
[2021-06-17] MEDS: Heparin Injection (Vial) 5,000 UNIT/ML VIAL 5000 UNIT SC (06:04)
[2021-06-17 06:35] VITALS: PULSE 87
[2021-06-17] MEDS: Aspirin E.C. 81 MG Tablet PO (07:16)
[2021-06-17 07:20] LABS: Bedside Glucose 136 mg/dL (70-110)
[2021-06-17 07:30] LABS: Absolute Lymphocyte Count 1.06 X10^3/uL (0.83-4.51); Absolute Neutrophil Count 5.4 X10^3/uL (2.0-7.7); Basophil# 0.07 X10^3/uL; Basophil% 0.9 % (0-1); Eosinophils% 3.8 % (0-5); Hemoglobin 14.4 g/dL (13.0-16.5); Lymphocyte # 1.06 X10^3/ul (0.83-4.51); Lymphocyte % 13.5 % (19-41); Mean Corp Hgb Conc 33.5 g/dL (32-36); Mean Corpuscular Hgb 30.6 pg (27.0-32.0); Mean Corpuscular Volume 91.3 fL (80-94); Mean Platelet Vol. 10.6 fl (6.2-12.0); Monocyte# 0.95 X10^3/uL; Monocyte% 12.1 % (0-10); NRBC Flagged by Analyzer 0 % (0-5); Neutrophil # 5.44 X10^3/uL (2.7-7.7); Neutrophil % 69.2 % (47-70); Platelet Count 250 K/mm3 (150-450); RBC Distribution Width CV 15.1 % (11.6-14.6); RBC Distribution Width SD 50.3 fl (35.1-43.9); Red Blood Count 4.71 M/mm3 (4.6-6.2); White Blood Count 7.9 K/mm3 (4.4-11.0)
[2021-06-17 07:55] LABS: ALB/GLOB Ratio 0.7 RATIO (0.9-2.4); AST(SGOT) 22 U/L (15-37); Alanine Aminotransfer ALT/SGPT 19 U/L (16-61); Albumin, Serum 3.4 g/dL (3.2-5.0); Alkaline Phosphatase 50 U/L (45-117); Anion Gap 9 (5-15); BUN 43 mg/dL (7-18); BUN/Creat Ratio 18.4 RATIO (10-20); Calcium,Total 9.3 mg/dL (8.5-10.1); Chloride 101 mmol/L (98-107); Creatinine, Serum 2.34 mg/dL (0.70-1.30); EST Glomerular Filtration Rate 30 mL/min (>60); Est Glom Filt Rate - Afr Amer 36 mL/min (>60); Estimated Creatinine Clearance 30.85 ml/min; Globulin 4.7 g/dL (2.2-4.2); Glucose 143 mg/dL (74-106); Potassium 3.7 mmol/L (3.5-5.1); Protein, Total 8.1 g/dL (6.4-8.2); Sodium Level 135 mmol/L (136-145)
[2021-06-17 08:08] LABS: Magnesium 2.5 mg/dL (1.6-2.6); Phosphorus 3.7 mg/dL (2.5-4.9)
[2021-06-17 09:06] VITALS: BP 108/74; PULSE 95; RESP 18; TEMP 36.6; O2SAT 99
[2021-06-17] MEDS: Nortriptyline 25 MG Capsule PO (09:09)
[2021-06-17] MEDS: LINAGLIPTIN 5 MG TABLET PO (09:09)
[2021-06-17] MEDS: Carvedilol 12.5 MG Tablet PO (09:09)
[2021-06-17 10:12] VITALS: O2SAT 93; O2SAT 99
--- NOTE | 2021-06-17 10:33 | DS.PCM_ITS ---
Providers Date of Admission: 06/16/21 Date of Discharge: 06/17/21 Primary Care Physician: MARY ANN Gonsales Reason For Visit: ACUTE ON CHRONIC CHF Diagnosis Discharge Diagnosis (1) Acute on chronic combined systolic and diastolic CHF (congestive heart failure): Status: Acute Code(s): I50.43 - Acute on chronic combined systolic (congestive) and diastolic (congestive) heart failure (2) Stage 3b chronic kidney disease: Status: Chronic Code(s): N18.32 - Chronic kidney disease, stage 3b (3) Essential (primary) hypertension: Status: Chronic Code(s): I10 - Essential (primary) hypertension (4) Hyperlipidemia: Status: Chronic Code(s): E78.5 - Hyperlipidemia, unspecified Qualifiers: Hyperlipidemia type: unspecified Qualified Code(s): E78.5 - Hyperlipidemia, unspecified (5) Large B-cell lymphoma: Status: Chronic Code(s): C85.10 - Unspecified B-cell lymphoma, unspecified site (6) History of TIA (transient ischemic attack): Status: Chronic Code(s): Z86.73 - Personal history of transient ischemic attack (TIA), and cerebral infarction without residual deficits Medications at Discharge Home Medications aspirin 81 mg PO DAILY 11/28/16 insulin aspart U-100 3 - 20 units SQ 4X/DAY 11/28/16 insulin glargine 33 unit SQ QHS 06/04/19 carvedilol 12.5 mg tablet 12.5 mg PO BID #180 tab 05/23/20 nortriptyline 25 mg PO DAILY 05/30/20 spironolactone 25 mg tablet 25 mg PO DAILY #90 tab 12/29/20 liraglutide 0.6 mg/0.1 mL (18 mg/3 mL) subcutaneous pen injector 1.8 mg SUBCUT DAILY 06/01/21 furosemide 40 mg tablet 40 mg PO .COMPLEX tab 06/08/21 linagliptin 5 mg tablet 5 mg PO DAILY 06/08/21 Hospital Course Operations None Procedures None Summary of Care Provided Minutes Spent on Discharge: 40 Hospital Course: 65 M who presents progressive shortness of breath at rest and with exertion as well as orthopnea and PND ongoing for 3 days. Patient has history of chronic systolic CHF, EF 20%, status post AICD. Patient stated that he has not been eating any salty food. He has been eating out once in a while. At one was at [facility] last week. He has been weighing himself and has not gained weight Review of chart however shows the patient's weight was 80.2 kg a week ago and today he is 82.9 kg. Patient was admitted to the PCU and started on Lasix. He diuresed a lot. He was evaluated in next morning, he was not dyspneic, he did not qualify for oxygen. He was discharged home on his home Lasix regimen. He was counseled strongly on his salt and fluid intake. He will follow-up with his dental technologist within a week. Physical Exam Narrative Physical exam: General: Alert, Oriented x3, Cooperative, No apparent distress, Well developed, on 2 L of oxygen HEENT: Atraumatic Oral: Moist Mucosa Neck: Supple Lungs: Diminished at the lung bases Cardiovascular: HS I+II, regular, no murmurs Abdomen: Bowel Sounds Present, Soft, Non Tender Extremities: Bilateral leg edema +1 Weight / BMI Weight Weight: 79.5 kg Body Mass Index (BMI) 26.6 ABG / Lab / Microbiology Data Result Diagrams: 06/17/21 06:53 06/17/21 06:53 Laboratory: Laboratory Results - last 24 hr 06/16/21 12:03: WBC 8.3, RBC 5.04, Hgb 15.1, Hct 46.9, MCV 93.1, MCH 30.0, MCHC 32.2, RDW Std Deviation 52.0 H, RDW Coeff of Kelsea 15.2 H, Plt Count 242, MPV 11.5, Immature Gran % (Auto) 0.500, Neut % (Auto) 71.7 H, Lymph % (Auto) 12.4 L, [place] % (Auto) 10.0, Eos % (Auto) 4.4, Baso % (Auto) 1.0, Absolute Neuts (auto) 6.0, Absolute Lymphs (auto) 1.03, Nucleated RBC % 0 06/16/21 12:03: Sodium 132 L, Potassium 5.1, Chloride 99, Carbon Dioxide 27.0, Anion Gap 6, BUN 40 H, Creatinine 2.56 H, Estim Creat Clear Calc 28.20, Est GFR (MDRD) Af Amer 33 L, Est GFR (MDRD) Non-Af 27 L, BUN/Creatinine Ratio 15.6, Glucose 248 H, Calcium 9.6, Troponin I High Sens 28.3 06/16/21 12:03: B-Natriuretic Peptide 1199.8 H 06/16/21 17:02: Troponin I High Sens 27.1 06/16/21 17:11: POC Glucose 157 H 06/16/21 20:47: Troponin I High Sens 22.6 06/16/21 21:47: POC Glucose 290 H 06/17/21 06:53: WBC 7.9, RBC 4.71, Hgb 14.4, Hct 43.0, MCV 91.3, MCH 30.6, MCHC 33.5, RDW Std Deviation 50.3 H, RDW Coeff of Kelsea 15.1 H, Plt Count 250, MPV 10.6, Immature Gran % (Auto) 0.500, Neut % (Auto) 69.2, Lymph % (Auto) 13.5 L, [place] % (Auto) 12.1 H, Eos % (Auto) 3.8, Baso % (Auto) 0.9, Absolute Neuts (auto) 5.4, Absolute Lymphs (auto) 1.06, Nucleated RBC % 0 06/17/21 06:53: Sodium 135 L, Potassium 3.7, Chloride 101, Carbon Dioxide 25.0, Anion Gap 9, BUN 43 H, Creatinine 2.34 H, Estim Creat Clear Calc 30.85, Est GFR (MDRD) Af Amer 36 L, Est GFR (MDRD) Non-Af 30 L, BUN/Creatinine Ratio 18.4, Glucose 143 H, Calcium 9.3, Total Bilirubin 1.10 H, AST 22, ALT 19, Alkaline Phosphatase 50, Total Protein 8.1, Albumin 3.4, Globulin 4.7 H, Albumin/Globulin Ratio 0.7 L 06/17/21 06:53: Phosphorus 3.7, Magnesium 2.5 06/17/21 07:10: POC Glucose 136 H Radiography Diagnostic Testing: Radiology Impression Chest X-Ray 06/16/21 12:19 IMPRESSION: No active pulmonary disease. Electronically Signed: Sherman Flowers MD at 13:08 EDT Tel , Service support , D/C Instructions Discharge Diet: Low fat / Low cholesterol, 6 Cup Fluid Restriction and 2000 mg Sodium Diet Meaningful Use Info Meaningful Use Diagnoses (Choose all that apply): CHF CHF MANUELA/ARB ordered at discharge?: Yes Documented LVEF (%): 20 Discharge Plan Admission Admit Date/Time: 06/16/21 15:46 Primary Reason for Your Visit: Acute CHF exacerbation Attending Provider: Nahomi Price Primary Care Provider: [place] NP Instructions Additional Instructions / Restrictions: Continue to take all your medications as prescribed. Take note of changes to your medication. Continue on a low-fat, low-salt diet. Restrict your total fluid intake to less than 1500 mls. Weigh yourself every day. Let your doctor know when you gain more than 2 pounds of weight. Follow-up with your primary care doctor in 1 to 2 weeks. Follow-up with the dental technologist in 2 weeks. You would need repeat blood work to check on your kidney function within a week of discharge. Discharge Orders/Prescriptions Prescriptions: Continued spironolactone 25 mg tablet 25 mg PO DAILY Qty: 90 RF: 3 furosemide 40 mg tablet 40 mg PO .COMPLEX RF: 0 aspirin 81 MG tablet,delayed release (DR/EC) 81 mg PO DAILY RF: 0 insulin aspart U-100 100 UNITS/ML insulin pen 3 - 20 units SQ 4X/DAY RF: 0 insulin glargine 100 UNIT/ML insulin pen 33 unit SQ QHS RF: 0 nortriptyline 25 MG capsule 25 mg PO DAILY RF: 0 liraglutide 0.6 mg/0.1 mL (18 mg/3 mL) pen injector 1.8 mg subcut DAILY RF: 0 linagliptin 5 mg tablet 5 mg PO DAILY RF: 0 carvedilol [Coreg] 12.5 mg tablet 12.5 mg PO BID Qty: 180 RF: 6 Referrals / Follow Up: Seth Harris MD [STAFF PHYSICIAN] - In 1 Week Little [place] NP, TERMINAL MAKE UP OPERATOR-C [Primary Care Provider] - Disposition Disposition (needs filled in before D/C Order can be placed): Home, Self Care Charges/Coding Visit Charges Inpatient E&M: 44068 Disch Hosp
[2021-06-17] MEDS: 0.9% Saline Lock 10 ML Syringe IV (11:27)
[2021-06-17] MEDS: Furosemide 40 MG/4 ML Vial IV (11:27)
--- NOTE | 2021-06-18 14:59 | CASEMGMT ---
[facility] Discharge Follow-Up Phone Call. Teresita: Mariam Strata: 3 Discharge Date: 06/16/21 Adm Dx: Acute on Chronic HF Call to pt to inquire about how he has been doing since being discharged from the hospital. Pt states I've been doing alright. I'm packing some stuff. We have to move. [facility] inquired when he needed to move and if he has place to move to. Pt states they do not have to move until September and he is not sure where they are moving to yet. He states he has been taking his time packing and sitting down to take breaks when he needs to. He states his breathing is doing much better than it was. Pt was not seen by CM when @ [facility] d/t admitted Sat and discharged on Friday. [facility] inquired if pt feels like he needs or if he is interested in HHC. Pt states he feels like he is doing alright and does not feel that he needs it. [facility] ACO[facility] informed him, if he reconsiders and decides he would like HHC, to discuss this with his PCP. He voices understanding. Pt states he is aware he is to make an appt w/Dr Harris and w/PCP, and he plans to do so either today yet, or tomorrow morning. He denies having any questions about the discharge instructions or medications. He thanked [facility] ACOSTA for calling. Ole HA RN, CM
== END 2021-06-17 11:42 | disposition home or self-care (01) | DRG 291 ==
LOC: ED 12:38 → PCU 16:03
PROVIDERS: Hospitalist; Admitting Provider Internal Medicine; Emergency Provider Emergency Medicine; PCP Nurse Practitioner Family; Visit Provider Internal Medicine
DX: I13.0 Hypertensive heart and chronic kidney disease with heart failure and stage 1 through stage 4 chronic kidney disease, or unspecified chronic kidney disease (principal); I50.43 Acute on chronic combined systolic (congestive) and diastolic (congestive) heart failure; E87.1 Hypo-osmolality and hyponatremia; C85.10 Unspecified B-cell lymphoma, unspecified site; I25.810 Atherosclerosis of coronary artery bypass graft(s) without angina pectoris; E11.22 Type 2 diabetes mellitus with diabetic chronic kidney disease; N18.32 Chronic kidney disease, stage 3b; I27.21 Secondary pulmonary arterial hypertension; I25.5 Ischemic cardiomyopathy; I36.1 Nonrheumatic tricuspid (valve) insufficiency; E11.42 Type 2 diabetes mellitus with diabetic polyneuropathy; E78.5 Hyperlipidemia, unspecified; I25.2 Old myocardial infarction; Z79.82 Long term (current) use of aspirin; Z79.4 Long term (current) use of insulin; Z79.899 Other long term (current) drug therapy; Z87.891 Personal history of nicotine dependence; Z86.73 Personal history of transient ischemic attack (TIA), and cerebral infarction without residual deficits; Z95.810 Presence of automatic (implantable) cardiac defibrillator; Z95.1 Presence of aortocoronary bypass graft
CPT/HCPCS: 36415; 71045; 80048; 80053; 82962; 83735; 83880; 84100; 84484; 85025; 93005; 96372; 96374; 96376; 99218; 99285; A4216; G0378; J1940

== ENCOUNTER 2021-07-06 12:04 | Emergency (ER) | payer MEDICARE, MEDICAID, SELFPAY ==
[2021-06-16 16:58] VITALS: BMI 26.6
[2021-07-06 12:05] VITALS: BP 107/91; PULSE 96; RESP 18; TEMP 36.4; O2SAT 99; BMI 22.8
[2021-07-06 12:27] VITALS: BP 109/81; PULSE 95; RESP 21; O2SAT 98
--- NOTE | 2021-07-06 12:49 | EDS_ITS ---
HPI History of Present Illness Chief Complaint: Shortness of Breath Informant: patient Narrative Narrative: Patient is a 65-year-old male with a past medical history of CHF, CAD with bypass, defibrillator placed, CKD who presents to the emergency department for shortness of breath. He states that this has been present over the past 3 days. He denies any pain associated with this. He denies a cough. No significant leg swelling. States that he has had the shortness of breath before and diagnosed with CHF exacerbation. He denies any fevers or chills. No abdominal pain. Did feel mildly nauseous this morning which was relieved with Pepcid. No change in bowel movements. No urinary symptoms. Patient has a former smoking history. [facility] Medical History (Updated 07/06/21 @ 14:[address] Vishnu Shaikh DO) Atherosclerosis of coronary artery bypass graft without angina pectoris Chronic combined systolic and diastolic CHF (congestive heart failure) Chronic kidney disease Chronic systolic (congestive) heart failure Congestive heart failure Essential (primary) hypertension History of TIA (transient ischemic attack) Hyperlipidemia Ischemic cardiomyopathy Large B-cell lymphoma Neuropathy Non-rheumatic tricuspid valve insufficiency Old inferior wall myocardial infarction On potassium wasting diuretic therapy Poor balance Secondary pulmonary arterial hypertension Type 2 diabetes mellitus Home Medications aspirin 81 mg PO DAILY 11/28/16 [History Last Taken 12/08/20] insulin aspart U-100 3 - 20 units SQ 4X/DAY 11/28/16 [History Last Taken 12/08/20] insulin glargine 35 unit SQ QHS 06/04/19 [History Last Taken 12/07/20] carvedilol 12.5 mg tablet 12.5 mg PO BID #180 tab 05/23/20 [Rx Last Taken 12/08/20] nortriptyline 25 mg PO DAILY 05/30/20 [History Last Taken 12/07/20] spironolactone 25 mg tablet 25 mg PO DAILY #90 tab 12/29/20 [Rx Last Taken Unknown] furosemide 40 mg tablet 80 mg PO DAILY tab 06/08/21 [History Last Taken Unknown] Allergy/AdvReac Type Severity Reaction Status Date / Time pregabalin [From Lyrica] Allergy PT UNSURE Verified 07/06/21 12:05 OF REACTION Family History Father Myocardial infarction, Onset Age: 56 Diabetes Sudden cardiac Mother Diabetes Brother Diabetes HLD (hyperlipidemia) Sister Breast cancer Uncle Sudden cardiac Myocardial infarction Surgical History (Updated 07/06/21 @ 12:29 by Ravindra Del Valle) H/O coronary artery bypass surgery (03/19/13) History of implantable cardiac defibrillator (ICD) (04/16/18) Hx of appendectomy Hx of cataract surgery Social History Smoking Status: Former smoker how long ago did patient quit smokin alcohol intake: never substance use type: does not use caffeine: No what type of physical activity do you participate in: none seatbelt use: always do you feel safe at home: Yes ROS ROS ED Constitutional Constitutional ED: Denies chills or fever(s) ENT ENT ED: Denies epistaxis or rhinorrhea Cardiovascular Cardiovascular: Denies chest pain or palpitations Respiratory/Chest Respiratory/Chest: Reports dyspnea; Denies cough or sputum Gastrointestinal Gastrointestinal: Denies abdominal pain, diarrhea, nausea or vomiting Genitourinary Genitourinary ED: Denies dysuria, hematuria or urinary frequency Musculoskeletal Musculoskeletal: Denies back pain or neck pain Integumentary Denies rash Neurologic Neurologic: Denies dizziness, headache(s) or weakness EXAM Physical Exam Const Vital Signs: 07/06/21 12:05 07/06/21 12:27 07/06/21 13:28 Temperature 97.5 F L 97.7 F L Temperature Source Temporal Temporal Pulse Rate 96 95 92 Respiratory Rate 18 21 H 26 H Respiratory Effort Normal Respiratory Depth Normal Respiratory Pattern Normal Blood Pressure 107/91 H 109/81 H 96/75 Blood Pressure Mean 96 90 82 Pulse Ox 99 98 97 Oxygen Delivery Method Room Air Room Air Room Air 07/06/21 14:29 Temperature Temperature Source Pulse Rate 99 Respiratory Rate 23 H Respiratory Effort Respiratory Depth Respiratory Pattern Blood Pressure 109/89 H Blood Pressure Mean 95 Pulse Ox 97 Oxygen Delivery Method Room Air Positive well nourished and well developed General Appearance ED: well developed and NAD HEENT Reports normocephalic, head/scalp atraumatic and moist mucous membranes Eyes PERRL and EOMs intact bilaterally Neck supple Resp normal respiratory effort and clear to auscultation bilaterally Auscultation: Negative for rales, rhonchi or wheezes Cardio regular rate and regular rhythm GI normal to inspection, nondistended, normoactive bowel sounds and non-tender Palpation: soft; Negative for guarding or rebound tenderness present Extremity normal to inspection General Extremety ED: Negative for edema or tenderness General Extremity: Negative for edema Neuro Sensorium / Orientation: alert Motor Exam: strength 5/5 throughout Psych mental status grossly normal Skin no rashes or lesions noted MDM MDM MDM Narrative Medical decision making narrative: Patient presents to the emerge department for shortness of breath. No chest pain associated with this. On arrival to the ED vital signs within normal limits and he is satting 99% on room air. He is not tachycardic or tachypneic. He has a benign physical exam. Will check x-ray, basic lab work and EKG. Please keep scheduled appointment with your life skills coach Friday. Make sure you do not miss any more doses of your Lasix. Patient's lab work showed a high BNP level. This is not far off from his previous lab draws. His chest x-ray is clear. Is been satting well throughout ED stay. He is able to ambulate around the ED without difficulty. The majority of his symptoms are when lying flat. Patient states that he did miss his dose of Lasix this morning. Given the fact he is not hypoxic will recommend he be treated at home. He is to take his dose and continue his regular medication. He actually has a cardiology appointment this coming Friday. He is to keep this appointment. He develops any worsening symptoms he is to return to the ED. Patient understands and is agreeable this plan. At this time I have low concern for ACS, thromboembolism. Lab Data Labs: Laboratory Results - last 24 hr 07/06/21 07/06/21 07/06/21 12:53 12:53 12:53 WBC 8.9 RBC 4.83 Hgb 14.5 Hct 44.7 MCV 92.5 MCH 30.0 MCHC 32.4 RDW Std Deviation 50.8 H RDW Coeff of Kelsea 14.9 H Plt Count 250 MPV 10.6 Immature Gran % (Auto) 0.700 Neut % (Auto) 76.2 H Lymph % (Auto) 9.5 L [place] % (Auto) 10.7 H Eos % (Auto) 2.3 Baso % (Auto) 0.6 Absolute Neuts (auto) 6.8 Absolute Lymphs (auto) 0.84 Nucleated RBC % 0 Sodium 133 L Potassium 4.5 Chloride 105 Carbon Dioxide 22.0 Anion Gap 6 BUN 39 H Creatinine 2.15 H Estim Creat Clear Calc 33.40 Est GFR (MDRD) Af Amer 40 L Est GFR (MDRD) Non-Af 33 L BUN/Creatinine Ratio 18.1 Glucose 291 H Calcium 9.3 Troponin I High Sens 21.0 B-Natriuretic Peptide 1367.1 H Radiography Diagnostic Testing: Radiology Impression Chest X-Ray 07/06/21 13:15 IMPRESSION: No acute abnormality is seen. Electronically Signed: Luis Alvarez MD at 13:45 EDT , Service support , EKG Initial EKG: Attestation: I personally reviewed and interpreted this EKG as follows: (Rate of 95 bpm and normal sinus rhythm. Normal intervals. Normal axis. No significant ST elevations or depressions. There are T wave inversions in lead I.) Discharge Plan Triage Chief Complaint: Shortness of Breath ED Provider: Vishnu Shaikh Dx/Rx/DC Orders Clinical Impression: Dyspnea, CHF (congestive heart failure) Instructions: ED Dyspnea Prescriptions: No Action spironolactone 25 mg tablet 25 mg PO DAILY Qty: 90 RF: 3 furosemide 40 mg tablet 80 mg PO DAILY RF: 0 aspirin 81 MG tablet,delayed release (DR/EC) 81 mg PO DAILY RF: 0 insulin aspart U-100 100 UNITS/ML insulin pen 3 - 20 units SQ 4X/DAY RF: 0 insulin glargine 100 UNIT/ML insulin pen 35 unit SQ QHS RF: 0 nortriptyline 25 MG capsule 25 mg PO DAILY RF: 0 carvedilol [Coreg] 12.5 mg tablet 12.5 mg PO BID Qty: 180 RF: 6 Primary Care Provider: [place] NP Referrals: [place] NP, [employer] DES[employer] [Primary Care Provider] - As soon as possible Activity Restrictions/Additional Instructions: Please keep scheduled appointment with your life skills coach Friday morning. Make sure you do not miss any more doses of your Lasix. Disposition Disposition: Home, Self Care
--- NOTE | 2021-07-06 12:49 | EKG12_ITS ---
Test Reason : SOB Blood Pressure : / mmHG Vent. Rate : 095 BPM Atrial Rate : 095 BPM P-R Int : 172 ms QRS Dur : 114 ms QT Int : 388 ms P-R-T Axes : 058 -09 129 degrees QTc Int : 487 ms Normal sinus rhythm ST & T wave abnormality, consider lateral ischemia Abnormal ECG Confirmed by DELFINO JULIEN, HEIDI ([id number]), managing editor LENA FREGOSO ([id number]) on 07/10/2021 9:44:56 AM Referred By: ELIZABETH Confirmed By:HEIDI SALEH MD
[2021-07-06 13:08] LABS: Absolute Lymphocyte Count 0.84 X10^3/uL (0.83-4.51); Absolute Neutrophil Count 6.8 X10^3/uL (2.0-7.7); Basophil# 0.05 X10^3/uL; Basophil% 0.6 % (0-1); Eosinophils% 2.3 % (0-5); Hematocrit 44.7 % (40-54); Hemoglobin 14.5 g/dL (13.0-16.5); Lymphocyte # 0.84 X10^3/ul (0.83-4.51); Lymphocyte % 9.5 % (19-41); Mean Corp Hgb Conc 32.4 g/dL (32-36); Mean Corpuscular Volume 92.5 fL (80-94); Mean Platelet Vol. 10.6 fl (6.2-12.0); Monocyte# 0.95 X10^3/uL; Monocyte% 10.7 % (0-10); NRBC Flagged by Analyzer 0 % (0-5); Neutrophil # 6.78 X10^3/uL (2.7-7.7); Neutrophil % 76.2 % (47-70); Platelet Count 250 K/mm3 (150-450); RBC Distribution Width CV 14.9 % (11.6-14.6); RBC Distribution Width SD 50.8 fl (35.1-43.9); Red Blood Count 4.83 M/mm3 (4.6-6.2); White Blood Count 8.9 K/mm3 (4.4-11.0)
--- NOTE | 2021-07-06 13:15 | RAD_ITS ---
STUDY: X-RAY CHEST REASON FOR EXAM: Male, 65 years old. SOB TECHNIQUE: Single AP portable view of the chest. COMPARISON: Comparison is made with prior study dated 06/16/2021. FINDINGS: EKG electrodes are seen. The lungs are clear and expanded. There is no demonstrated pleural abnormality. Sternal cerclage wires and vascular clips are present from a prior sternotomy and coronary artery bypass graft procedure (CABG). The left-sided unipolar pacemaker is present. Normal mediastinum and minna. Normal visualized pulmonary arteries. Normal visualized aortic arch and descending thoracic aorta. Normal visualized thoracic spine. Normal visualized ribs, clavicles, and shoulders. There is no demonstrated abnormality of the visualized soft tissue structures of the upper abdomen. RAD/Chest 1 View (Portable) IMPRESSION: No acute abnormality is seen. Electronically Signed: Luis Alvarez MD at 13:45 EDT , Service support ,
[2021-07-06 13:26] LABS: Anion Gap 6 (5-15); BUN 39 mg/dL (7-18); BUN/Creat Ratio 18.1 RATIO (10-20); Calcium,Total 9.3 mg/dL (8.5-10.1); Chloride 105 mmol/L (98-107); Creatinine, Serum 2.15 mg/dL (0.70-1.30); EST Glomerular Filtration Rate 33 mL/min (>60); Est Glom Filt Rate - Afr Amer 40 mL/min (>60); Glucose 291 mg/dL (74-106); Potassium 4.5 mmol/L (3.5-5.1); Sodium Level 133 mmol/L (136-145)
[2021-07-06 13:28] VITALS: BP 96/75; PULSE 92; RESP 26; TEMP 36.5; O2SAT 97
[2021-07-06 14:29] VITALS: BP 109/89; PULSE 99; RESP 23; O2SAT 97
--- NOTE | 2021-07-06 14:52 | ED.RN ---
Covid precautions discontinued by dr juarez. Neg test today. moreno clancy rn [id number]
[2021-07-06 15:05] VITALS: BP 125/73; PULSE 79; RESP 22; O2SAT 97
--- NOTE | 2021-07-06 15:06 | ED.RN ---
THIS NURSE REVIEWED D/C INSTRUCTIONS WITH PT. PT VERBALIZED UNDERSTANDING OF INSTRUCTIONS. IV D/C. IV CATHETER INTACT. PT TOLERATED WELL. PT DENIES FURTHER NEEDS OR QUESTIONS AT THIS TIME
== END 2021-07-06 15:07 | disposition home or self-care (01) ==
PROVIDERS: Emergency Provider Emergency Medicine; PCP Nurse Practitioner Family
DX: R06.00 Dyspnea, unspecified (principal); I13.0 Hypertensive heart and chronic kidney disease with heart failure and stage 1 through stage 4 chronic kidney disease, or unspecified chronic kidney disease; I50.42 Chronic combined systolic (congestive) and diastolic (congestive) heart failure; I25.810 Atherosclerosis of coronary artery bypass graft(s) without angina pectoris; Z20.822 Contact with and (suspected) exposure to COVID-19; E11.22 Type 2 diabetes mellitus with diabetic chronic kidney disease; N18.9 Chronic kidney disease, unspecified; E11.40 Type 2 diabetes mellitus with diabetic neuropathy, unspecified; I25.5 Ischemic cardiomyopathy; I27.21 Secondary pulmonary arterial hypertension; E78.5 Hyperlipidemia, unspecified; R26.89 Other abnormalities of gait and mobility; Z79.82 Long term (current) use of aspirin; Z79.4 Long term (current) use of insulin; Z79.899 Other long term (current) drug therapy; I25.2 Old myocardial infarction; Z86.73 Personal history of transient ischemic attack (TIA), and cerebral infarction without residual deficits; Z87.891 Personal history of nicotine dependence; Z95.1 Presence of aortocoronary bypass graft
CPT/HCPCS: 71045; 80048; 83880; 84484; 85025; 87426; 93005; 99284

== ENCOUNTER 2021-07-17 11:33 | Emergency (ER) | payer MEDICARE, MEDICAID, SELFPAY ==
[2021-07-17 11:33] VITALS: BP 106/81; PULSE 93; RESP 18; TEMP 36.9; O2SAT 99; BMI 23.2
--- NOTE | 2021-07-17 12:15 | RAD_ITS ---
STUDY: X-RAY - CERVICAL SPINE REASON FOR EXAM: Male, 65 years old. Radicular pain TECHNIQUE: 4 view(s) of the cervical spine were obtained. COMPARISON: None FINDINGS: There are degenerative changes of the anterior atlantoaxial articulation. Normal odontoid process. There is straightening of the normal cervical lordosis. Anterior spondylosis and marked in degree of disc space narrowing at the C5-C6 and C6-C7 levels. Normal visualized intervertebral neuroforamina. There are atherosclerotic vascular calcifications of the carotid arteries. RAD/Cerv Spine 2 or 3 Views IMPRESSION: Marked degree of disc space narrowing at the C5-C6 and C6-C7 levels with anterior spondylosis. Loss of the normal cervical lordosis. Electronically Signed: Luis Alvarez MD at 13:15 EDT , Service support ,
--- NOTE | 2021-07-17 12:16 | EKG12_ITS ---
Test Reason : CHEST PAIN Blood Pressure : / mmHG Vent. Rate : 092 BPM Atrial Rate : 092 BPM P-R Int : 176 ms QRS Dur : 112 ms QT Int : 394 ms P-R-T Axes : 070 -08 122 degrees QTc Int : 487 ms Normal sinus rhythm Septal infarct , age undetermined , cannot be excluded ST & T wave abnormality, consider lateral ischemia Abnormal ECG Confirmed by TONYA JULIEN, COCO ([id number]), makeup editor LENA FREGOSO ([id number]) on 07/19/2021 9:59:19 AM Referred By: LEILANI Confirmed By:COCO CASTANEDA MD
--- NOTE | 2021-07-17 12:17 | EX.ED.DYSGE1 ---
HPI History of Present Illness Chief Complaint: General Illness Informant: patient Onset/Context/Timing Onset: Today (JPTA, around an hour ago) Context: Sudden Onset (While driving) Timing: Continuous Quality: Numb and painful Location: Both elbows and across shoulder blades in the back/neck Current Severity: Mild Maximum Severity: Severe Worsened by: Having arms down while holding steering wheel Relieved by: Holding arms up with forearms over top of the steering wheel Associated Symptoms Associated Symptoms: Nothing Narrative Narrative: Patient states he was driving and felt paresthesias with pain at both elbows but not up the arm or down the forearm into hands or anywhere else except for the base of the neck. All of the above were painful and kind of numb. If he had his arms down while holding the steering wheel it was worse and if he had them up while holding his forearms over top of the steering wheel it was better. He cannot recall any head movements that changed or triggered his pain. He denies any weakness. No chest discomfort or shortness of breath, no symptoms of dizziness or changes in vision, no symptoms into his lower extremities. He has chronic peripheral neuropathy with numbness in his feet that has been unchanged. He has a significant cardiac history with an AICD and had a bypass in the past. He states now even with his arms down it feels much better and he just had some mild discomfort at both elbows only. [facility] Medical History Atherosclerosis of coronary artery bypass graft without angina pectoris Chronic combined systolic and diastolic CHF (congestive heart failure) Chronic kidney disease Chronic systolic (congestive) heart failure Congestive heart failure Essential (primary) hypertension History of TIA (transient ischemic attack) Hyperlipidemia Ischemic cardiomyopathy Large B-cell lymphoma Neuropathy Non-rheumatic tricuspid valve insufficiency Old inferior wall myocardial infarction On potassium wasting diuretic therapy Poor balance Secondary pulmonary arterial hypertension Type 2 diabetes mellitus Home Medications aspirin 81 mg PO DAILY 11/28/16 [History Last Taken 12/08/20] insulin aspart U-100 3 - 20 units SQ 4X/DAY 11/28/16 [History Last Taken 12/08/20] insulin glargine 35 unit SQ QHS 06/04/19 [History Last Taken 12/07/20] carvedilol 12.5 mg tablet 12.5 mg PO BID #180 tab 05/23/20 [Rx Last Taken 12/08/20] nortriptyline 25 mg PO DAILY 05/30/20 [History Last Taken 12/07/20] spironolactone 25 mg tablet 25 mg PO DAILY #90 tab 12/29/20 [Rx Last Taken Unknown] fenofibrate 160 mg tablet 160 mg PO DAILY 07/09/21 [History Last Taken Unknown] furosemide 40 mg tablet 80 mg PO DAILY #180 tab 07/09/21 [Rx Last Taken Unknown] linagliptin 5 mg tablet 5 mg PO DAILY 07/09/21 [History Last Taken Unknown] Allergy/AdvReac Type Severity Reaction Status Date / Time pregabalin [From Lyrica] Allergy PT UNSURE Verified 07/17/21 12:27 OF REACTION Family History Father Myocardial infarction, Onset Age: 56 Diabetes Sudden cardiac Mother Diabetes Brother Diabetes HLD (hyperlipidemia) Sister Breast cancer Uncle Sudden cardiac Myocardial infarction Surgical History H/O coronary artery bypass surgery (03/19/13) History of implantable cardiac defibrillator (ICD) (04/16/18) Hx of appendectomy Hx of cataract surgery Social History Smoking Status: Current every day smoker tobacco type: cigarettes how long ago did patient quit smokin alcohol intake: never substance use type: does not use caffeine: No what type of physical activity do you participate in: none seatbelt use: always do you feel safe at home: Yes ROS ROS ED Constitutional Constitutional ED: Denies chills or fever(s) Eyes Eyes: Denies change in vision or diplopia ENT ENT ED: Denies rhinorrhea or sore throat Cardiovascular Cardiovascular: Denies chest pain or palpitations Respiratory/Chest Respiratory/Chest: Denies cough or dyspnea Gastrointestinal Gastrointestinal: Denies abdominal pain, diarrhea, nausea or vomiting Genitourinary Genitourinary ED: Denies dysuria or hematuria Musculoskeletal Musculoskeletal: Reports as per HPI, back pain, extremity pain, neck pain and tingling Integumentary Denies abscess or rash Neurologic Neurologic: Reports paresthesias; Denies headache(s) or weakness Psychiatric Psychiatric: Denies anxiety or suicidal thoughts EXAM Physical Exam Const Vital Signs: 07/17/21 11:33 07/17/21 12:22 Temperature 98.4 F Temperature Source Temporal Pulse Rate 93 Respiratory Rate 18 Respiratory Pattern Normal Blood Pressure 106/81 H Blood Pressure Mean 89 Pulse Ox 99 Oxygen Delivery Method Room Air Room Air Positive well nourished and well developed General Appearance ED: well developed and NAD HEENT Reports moist mucous membranes normocephalic and atraumatic Eyes PERRL and EOMs intact bilaterally Neck full ROM and supple Neck Narrative: Nontender Resp normal respiratory effort and clear to auscultation bilaterally Cardio regular rate, regular rhythm and no murmurs GI non-tender and non-distended Auscultation: normoactive bowel sounds Palpation: soft Back/Spine no CVA tenderness, normal to inspection and no thoracic nor lumbar tenderness General Back: other FROM Extremity normal to inspection and full ROM Extremity Narrative: No rashes General Extremety ED: Negative for edema, pulses abnormal or tenderness General Extremity: Negative for edema or pulses abnormal Neuro oriented x3, CN's II-XII intact bilaterally and no sensory deficits noted Neuro Narrative: Diminished reflexes throughout, symmetrically. Faint pulses but palpable and symmetric all four extremities. Sensorium / Orientation: awake and alert Motor Exam: strength 5/5 throughout Skin no rashes or lesions noted and no wounds MDM MDM MDM Narrative Medical decision making narrative: The unusual location of his symptoms are not classic for anything but I suspect this was radicular in nature from his neck. He is feeling much better now and he has good strength and sensation there is no indication for a stat MRI, but given the unusual location of it just being at his elbows and nowhere else, I chose to do a cardiac work-up given his history to make sure that this was not a typical cardiac pain, in addition to getting cervical spine x-rays to screen for disc space abnormalities. With his cardiac work-up being negative at this time, his symptoms better, and his cervical spine x-rays showing a marked degree of disc space narrowing at levels that could give him radicular symptoms at the elbows, although they typically would include other areas, it is consistent with the patient's history of manipulating symptoms when he manipulates his arms/shoulders/neck. He does not have any objective sensory loss or weakness at this time, I will refer him as an outpatient to spine. Lab Data Attestation: I reviewed the patient's lab results. Labs: Laboratory Results - last 24 hr 07/17/21 07/17/21 11:50 11:50 WBC 9.6 RBC 5.25 Hgb 15.6 Hct 48.0 MCV 91.4 MCH 29.7 MCHC 32.5 RDW Std Deviation 49.0 H RDW Coeff of Kelsea 14.6 Plt Count 251 MPV 10.6 Immature Gran % (Auto) 0.700 Neut % (Auto) 75.8 H Lymph % (Auto) 10.4 L [place] % (Auto) 10.1 H Eos % (Auto) 2.3 Baso % (Auto) 0.7 Absolute Neuts (auto) 7.3 Absolute Lymphs (auto) 1.00 Nucleated RBC % 0 Sodium 130 L Potassium 4.1 Chloride 93 L Carbon Dioxide 27.0 Anion Gap 10 BUN 67 H Creatinine 2.82 H Estim Creat Clear Calc 25.60 Est GFR (MDRD) Af Amer 29 L Est GFR (MDRD) Non-Af 24 L BUN/Creatinine Ratio 23.8 H Glucose 303 H Calcium 9.5 Troponin I High Sens 37 Radiography Diagnostic Testing: Radiology Impression Cervical Spine X-Ray 07/17/21 12:15 IMPRESSION: Marked degree of disc space narrowing at the C5-C6 and C6-C7 levels with anterior spondylosis. Loss of the normal cervical lordosis. Electronically Signed: Luis Alvarez MD at 13:15 EDT , Service support , EKG Initial EKG: Attestation: I personally reviewed and interpreted this EKG as follows: Interpretation: Sinus Rhythm and No Acute Injury Pattern Comments: Incomplete left bundle branch block. No old for comparison. Discharge Plan Triage Chief Complaint: General Illness ED Provider: Ortiz Frye Dx/Rx/DC Orders Clinical Impression: Cervical radiculopathy Instructions: ED Radiculopathy, Cervical Prescriptions: No Action spironolactone 25 mg tablet 25 mg PO DAILY Qty: 90 RF: 3 fenofibrate 160 mg tablet 160 mg PO DAILY RF: 0 Tradjenta 5 mg tablet 5 mg PO DAILY RF: 0 aspirin 81 MG tablet,delayed release (DR/EC) 81 mg PO DAILY RF: 0 insulin aspart U-100 100 UNITS/ML insulin pen 3 - 20 units SQ 4X/DAY RF: 0 insulin glargine 100 UNIT/ML insulin pen 35 unit SQ QHS RF: 0 nortriptyline 25 MG capsule 25 mg PO DAILY RF: 0 carvedilol [Coreg] 12.5 mg tablet 12.5 mg PO BID Qty: 180 RF: 6 furosemide 40 mg tablet 80 mg PO DAILY Qty: 180 RF: 3 Primary Care Provider: [place] NP Referrals: Jhonny Dowd DO [STAFF PHYSICIAN] - (Call for follow-up if your symptoms persist) [place] NP, AQUATIC PHYSIOTHERAPIST-C [Primary Care Provider] - Disposition Disposition: Home, Self Care
[2021-07-17 12:25] LABS: Absolute Neutrophil Count 7.3 X10^3/uL (2.0-7.7); Basophil# 0.07 X10^3/uL; Basophil% 0.7 % (0-1); Eosinophil# 0.22 X10^3/uL; Eosinophils% 2.3 % (0-5); Hemoglobin 15.6 g/dL (13.0-16.5); Lymphocyte % 10.4 % (19-41); Mean Corp Hgb Conc 32.5 g/dL (32-36); Mean Corpuscular Hgb 29.7 pg (27.0-32.0); Mean Corpuscular Volume 91.4 fL (80-94); Mean Platelet Vol. 10.6 fl (6.2-12.0); Monocyte# 0.97 X10^3/uL; Monocyte% 10.1 % (0-10); NRBC Flagged by Analyzer 0 % (0-5); Neutrophil # 7.28 X10^3/uL (2.7-7.7); Neutrophil % 75.8 % (47-70); Platelet Count 251 K/mm3 (150-450); RBC Distribution Width CV 14.6 % (11.6-14.6); Red Blood Count 5.25 M/mm3 (4.6-6.2); White Blood Count 9.6 K/mm3 (4.4-11.0)
[2021-07-17 12:38] LABS: Anion Gap 10 (5-15); BUN 67 mg/dL (7-18); BUN/Creat Ratio 23.8 RATIO (10-20); Calcium,Total 9.5 mg/dL (8.5-10.1); Chloride 93 mmol/L (98-107); Creatinine, Serum 2.82 mg/dL (0.70-1.30); EST Glomerular Filtration Rate 24 mL/min (>60); Est Glom Filt Rate - Afr Amer 29 mL/min (>60); Glucose 303 mg/dL (74-106); Potassium 4.1 mmol/L (3.5-5.1); Sodium Level 130 mmol/L (136-145); Troponin-I HS 37 pg/mL (3.0-78.0)
[2021-07-17 14:38] VITALS: BP 100/80; PULSE 92; RESP 18; O2SAT 96
== END 2021-07-17 14:39 | disposition home or self-care (01) ==
PROVIDERS: Emergency Provider Emergency Medicine; PCP Nurse Practitioner Family
DX: M54.12 Radiculopathy, cervical region (principal); E11.40 Type 2 diabetes mellitus with diabetic neuropathy, unspecified; I13.0 Hypertensive heart and chronic kidney disease with heart failure and stage 1 through stage 4 chronic kidney disease, or unspecified chronic kidney disease; E11.22 Type 2 diabetes mellitus with diabetic chronic kidney disease; N18.9 Chronic kidney disease, unspecified; I50.42 Chronic combined systolic (congestive) and diastolic (congestive) heart failure; I25.5 Ischemic cardiomyopathy; I25.810 Atherosclerosis of coronary artery bypass graft(s) without angina pectoris; I27.21 Secondary pulmonary arterial hypertension; E78.5 Hyperlipidemia, unspecified; F17.210 Nicotine dependence, cigarettes, uncomplicated; Z79.4 Long term (current) use of insulin; Z79.82 Long term (current) use of aspirin; Z79.899 Other long term (current) drug therapy; I25.2 Old myocardial infarction; Z86.73 Personal history of transient ischemic attack (TIA), and cerebral infarction without residual deficits; Z95.1 Presence of aortocoronary bypass graft; Z95.810 Presence of automatic (implantable) cardiac defibrillator
CPT/HCPCS: 72040; 80048; 84484; 85025; 93005; 99284

== ENCOUNTER → 2021-07-23 07:37 | Outpatient (CLI) | payer MEDICARE, MEDICAID, SELFPAY ==
[2021-07-23 09:38] LABS: Anion Gap 6 (5-15); BUN 79 mg/dL (7-18); BUN/Creat Ratio 26.5 RATIO (10-20); Calcium,Total 10.4 mg/dL (8.5-10.1); Chloride 96 mmol/L (98-107); Creatinine, Serum 2.98 mg/dL (0.70-1.30); EST Glomerular Filtration Rate 23 mL/min (>60); Est Glom Filt Rate - Afr Amer 27 mL/min (>60); Glucose 71 mg/dL (74-106); Potassium 3.8 mmol/L (3.5-5.1); Sodium Level 134 mmol/L (136-145)
== END ==
PROVIDERS: PCP Nurse Practitioner Family; Referring Provider Physician Assistant Medical; Visit Provider Physician Assistant Medical
DX: I50.43 Acute on chronic combined systolic (congestive) and diastolic (congestive) heart failure (principal)
CPT/HCPCS: 36415; 80048

== ENCOUNTER → 2021-07-31 09:55 | Outpatient (CLI) | payer MEDICARE, MEDICAID, SELFPAY ==
[2021-07-31 11:07] LABS: Anion Gap 8 (5-15); BUN 62 mg/dL (7-18); BUN/Creat Ratio 22.7 RATIO (10-20); Calcium,Total 9.7 mg/dL (8.5-10.1); Chloride 101 mmol/L (98-107); Creatinine, Serum 2.73 mg/dL (0.70-1.30); EST Glomerular Filtration Rate 25 mL/min (>60); Est Glom Filt Rate - Afr Amer 30 mL/min (>60); Glucose 140 mg/dL (74-106); Potassium 4.3 mmol/L (3.5-5.1); Sodium Level 135 mmol/L (136-145)
== END ==
PROVIDERS: PCP Nurse Practitioner Family; Referring Provider Physician Assistant Medical; Visit Provider Physician Assistant Medical
DX: N18.32 Chronic kidney disease, stage 3b (principal)
CPT/HCPCS: 36415; 80048